=== PATIENT | female | born 1975 | race Caucasian/White ===

== ENCOUNTER 2021-12-11 17:27 | Emergency (ER) | payer OTHER, SELFPAY ==
[2021-12-11 17:30] VITALS: BP 143/101; PULSE 109; RESP 20; TEMP 36.9; O2SAT 98; BMI 33.8
[2021-12-11 17:42] VITALS: BP 121/85; PULSE 109; O2SAT 98
--- NOTE | 2021-12-11 17:45 | XR_ITS ---
PROCEDURE INFORMATION: Exam: XR Right Elbow Exam date and time: 12/11/2021 6:03 PM Age: 46 years old Clinical indication: Injury or trauma; Fall; Blunt trauma (contusions or hematomas); Patient HX: Patient fell onto right elbow. TECHNIQUE: Imaging protocol: Radiologic exam of the Right elbow. Views: 3 or more views. COMPARISON: No relevant prior studies available. FINDINGS: Bones/joints: There is no evidence of acute fracture.There is no evidence of malalignment or dislocation. Soft tissues: Soft tissue swelling of the elbow and forearm. IMPRESSION: There is no evidence of acute fracture.There is no evidence of malalignment or dislocation.
--- NOTE | 2021-12-11 17:52 | HMH.EDGENADL ---
ED Disposition Clinical Impression: Sting from hornet, wasp, or bee Qualifiers: Encounter type: initial encounter Injury intent: accidental or unintentional Qualified Code(s): T63.451A - Toxic effect of venom of hornets, accidental (unintentional), initial encounter Fall Qualifiers: Encounter type: initial encounter Qualified Code(s): W19.XXXA - Unspecified fall, initial encounter Disposition: Home, Self-Care Condition on Discharge: Good Instructions: DI for Cellulitis -- Adult, DI for Insect Bites and Stings Additional Instructions: Keflex and ibuprofen as prescribed. Ice 20 minutes 4-5 times a day to area of redness and swelling, elevate right arm. Return to the emergency department or follow-up with primary care doctor if not improving in 48 hours, or if worsening pain/redness/swelling or if you develop a fever greater than 100 degrees. Prescriptions: Albuterol Sulfate [Proventil-HFA 90mcg/puff Inh] 1 - 2 puffs IH Q6HP PRN #1 each PRN Reason: Wheezing Transmission Status: Pending to [facility] #[id number] Ibuprofen [Ibuprofen 800mg Tablet] 800 mg PO Q8HP PRN #15 tab PRN Reason: Moderate Pain Transmission Status: Received by [facility] #[id number] cephALEXin [cephALEXin 500mg capsule*] 500 mg PO Q6H #28 cap Transmission Status: Received by [facility] #[id number] Referrals: Provider,Referral, [Primary Care Provider] - - Critical Care Critical Care Time: No Attestation: On 12/11/21, the high probability of a clinically significant, sudden or life threatening deterioration of the following system(s) required my full and direct attention, intervention and personal management. The time I documented below is in addition to time spent performing reported procedures but includes the following listed in this critical care notation. Medical Decision Making - Evelio Inquiry Pt receiving controlled substance: No Vital Signs: 12/11/21 17:30 12/11/21 17:42 12/11/21 18:38 Temperature 98.5 F 98.5 F Temperature Source Oral Pulse Rate 109 H 100 H Pulse Rate [Left Radial] 109 H Respiratory Rate 20 20 Blood Pressure 121/85 121/85 Blood Pressure [Right Arm] 143/101 H Blood Pressure Mean [Right Arm] 115 Blood Pressure Source [Right Arm] Automatic Cuff Blood Pressure Position [Right Arm] Sitting 02 Sat by Pulse Oximetry 98 98 Oxygen Delivery Method Room Air Room Air Orders (Tests/Meds): ED MEDICATIONS Discontinued Medications Generic Name Dose Route Start Last Admin Trade Name Eden PRN Reason Stop Dose Admin Cefazolin Sodium 1 gm 12/11/21 18:19 12/11/21 18:32 Cefazolin 1gm Vial IM 12/11/21 18:20 1 gm ONCE ONE Administration Ketorolac Tromethamine 60 mg 12/11/21 18:19 12/11/21 18:33 Ketorolac 60mg/2ml Vial IM 12/11/21 18:20 60 mg ONCE ONE Administration ORDERS Category Date Time Status Elbow XR right minimum 3 views [XR elbow RT min 3V] Exams 12/11/21 17:45 Taken Stat - Radiology Data #1 Image(s): Elbow (Preliminary interpretation by me: No fracture, dislocation, foreign body, or effusion) Image Reviewed: Yes I reviewed the patient's radiology image Medical Decision Narrative: Discussed x-ray findings (negative). I recommend antibiotics and anti-inflammatories. On further discussion, she seems uncertain as to whether her symptoms are related to the fall. She also now states that this time states she has bad reactions to wasp stings very much like this. She is not aware of being stung but wonders whether she might have been, given the appearance of her arm. There is no papule or blister present to confirm a sting. She does not have itching. However, the appearance of her edema, induration, erythema, and heat would certainly be consistent with a hymenoptera envenomation, in fact I would favor that over cellulitis. Given the lack of a confirmatory history of a sting, however, I still recommend treating with antibi
[2021-12-11 18:38] VITALS: BP 121/85; PULSE 100; RESP 20; TEMP 36.9; O2SAT 98
== END 2021-12-11 18:44 | disposition home or self-care (01) ==
PROVIDERS: Emergency Provider Emergency Medicine
DX: T63.451A Toxic effect of venom of hornets, accidental (unintentional), initial encounter (principal); L03.115 Cellulitis of right lower limb; S50.311A Abrasion of right elbow, initial encounter; W18.30XA Fall on same level, unspecified, initial encounter
CPT/HCPCS: 73080; 96372; 99283

== ENCOUNTER → 2022-03-05 15:42 | Outpatient (CLI) | payer OTHER, SELFPAY ==
[2022-03-05 15:24] LABS: MANUAL DIFFERENTIAL MANUAL DIFFERENTIAL (MANUAL DIFF)
[2022-03-05 16:20] LABS: Basophils # 0.1 K/mm3 (0-0.2); Basophils % 0.8 % (0.1-2.0); Eosinophils # 0.1 K/mm3 (0.0-0.4); Eosinophils % 1.4 % (0.1-12.0); Hematocrit 46.2 % (37.0-47.0); Hemoglobin 14.5 g/dL (12.2-16.2); Lymphocytes # 2.1 K/mm3 (0.7-4.5); Lymphocytes % 29.5 % (10-50); Mean Corpuscular HGB Conc 31.3 g/dL (31.8-35.4); Mean Corpuscular Volume 92.6 fl (81-99); Mean Platelet Volume 9.4 fl (7.4-10.4); Monocytes # 0.5 K/mm3 (0.1-1.0); Monocytes % 6.8 % (1.7-9.3); Neutrophils # 4.4 K/mm3 (1.8-7.8); Neutrophils % 61.3 % (37.0-80.0); Platelet Count 372 K/mm3 (142-424); Red Blood Count 4.99 M/mm3 (4.20-5.40); Red Cell Distribution Width 14.6 % (11.5-17.5); White Blood Count 7.2 K/mm3 (4.8-10.8)
[2022-03-05 16:55] LABS: Free T4 (Free Thyroxine) 1.26 ng/dl (0.78-2.19)
[2022-03-05 17:09] LABS: Alanine Aminotransferase 19 U/L (12-78); Albumin/Globulin Ratio 1.4 (1.1-1.8); Alkaline Phosphatase 110 U/L (38-126); Anion Gap 15.5 mEq/L (5-15); Aspartate Amino Transferase 29 U/L (14-36); Blood Urea Nitrogen 4 mg/dl (7-17); Calcium 8.9 mg/dl (8.4-10.2); Carbon Dioxide 26 mmol/L (22.0-30.0); Chloride 102 mmol/L (98-107); Estimated Glomerular Filt Rate 108 ml/min (>60); GFR (African American) 130 ML/MIN (>60); Globulin 2.9 g/dL (1.3-3.2); Glucose 92 mg/dl (74-100); Potassium 4.5 mmoL/L (3.5-5.1); Sodium 139 mmol/L (136-145); Total Protein,Serum 6.9 g/dl (6.3-8.2)
[2022-03-05 17:10] LABS: Bilirubin,Total < 0.1 mg/dl (0.2-1.3)
[2022-03-05 17:41] LABS: Thyroid Stimulating Hormone 0.71 uIU/mL (0.465-4.68)
[2022-03-05 18:23] LABS: Eosinophils % 1 % (0-3); Lymphocytes % 44 % (10-50); Monocytes % 1 % (2-9); Neutrophils % 54 % (42-76); Total Cells Counted 100
[2022-03-05 18:24] LABS: Platelet Estimate Normal; RBC Morphology Normal
== END ==
PROVIDERS: PCP Family Medicine; Visit Provider Family Medicine
DX: Z01.89 Encounter for other specified special examinations (principal)
CPT/HCPCS: 80053; 84439; 84443; 85007; 85014; 85018; 85048; 85049

== ENCOUNTER → 2022-04-08 08:46 | Outpatient (CLI) | payer OTHER, SELFPAY ==
[2022-04-08 09:49] LABS: Basophils # 0.1 K/mm3 (0-0.2); Basophils % 1.1 % (0.1-2.0); Eosinophils # 0.1 K/mm3 (0.0-0.4); Eosinophils % 1.1 % (0.1-12.0); Hematocrit 47.5 % (37.0-47.0); Lymphocytes # 3.3 K/mm3 (0.7-4.5); Lymphocytes % 31.3 % (10-50); Mean Corpuscular HGB Conc 31.6 g/dL (31.8-35.4); Mean Corpuscular Volume 91.7 fl (81-99); Monocytes # 0.5 K/mm3 (0.1-1.0); Monocytes % 4.4 % (1.7-9.3); Neutrophils # 6.6 K/mm3 (1.8-7.8); Platelet Count 314 K/mm3 (142-424); Red Blood Count 5.17 M/mm3 (4.20-5.40); Red Cell Distribution Width 14.2 % (11.5-17.5); White Blood Count 10.6 K/mm3 (4.8-10.8)
[2022-04-08 10:26] LABS: Alanine Aminotransferase 16 U/L (12-78); Albumin Level 4.2 g/dl (3.5-5.0); Albumin/Globulin Ratio 1.4 (1.1-1.8); Alkaline Phosphatase 104 U/L (38-126); Anion Gap 12.2 mEq/L (5-15); Aspartate Amino Transferase 26 U/L (14-36); Bilirubin,Total 0.4 mg/dl (0.2-1.3); Blood Urea Nitrogen 9 mg/dl (7-17); Calcium 9.4 mg/dl (8.4-10.2); Carbon Dioxide 33 mmol/L (22.0-30.0); Chloride 98 mmol/L (98-107); Chol/HDL Ratio 4.7 (1-3.5); Cholesterol 197 mg/dl (140-200); Estimated Glomerular Filt Rate 90 ml/min (>60); GFR (African American) 109 ML/MIN (>60); Globulin 2.9 g/dL (1.3-3.2); Glucose 101 mg/dl (74-100); HDL Cholesterol 42 mg/dl (40-60); Potassium 4.2 mmoL/L (3.5-5.1); Sodium 139 mmol/L (136-145); Total Protein,Serum 7.1 g/dl (6.3-8.2); Triglycerides 275 mg/dl (30-150); VLDL Cholesterol 55 mg/dL (0-40)
== END ==
PROVIDERS: PCP Family Medicine; Visit Provider Nurse Practitioner Obstetrics & Gynecology
DX: Z01.419 Encounter for gynecological examination (general) (routine) without abnormal findings (principal)
CPT/HCPCS: 36415; 80053; 80061; 85025

== ENCOUNTER → 2022-04-09 09:49 | Outpatient (CLI) | payer OTHER, SELFPAY ==
--- NOTE | 2022-04-09 09:53 | MM_ITS ---
PROCEDURE INFORMATION: Exam: Bilateral Screening 3D Mammography Exam date and time: 04/09/2022 10:31 AM Age: 46 years old Clinical indication: Baseline. A maternal cousin had breast cancer in her 30s. TECHNIQUE: Imaging protocol: Bilateral Screening tomosynthesis and 2D mammography including computer-aided detection (CAD) when performed. COMPARISON: No relevant prior studies available. FINDINGS: MAMMOGRAPHY: Breast composition: There are scattered areas of fibroglandular density. Mass: None. Architectural distortion: None. Calcifications: No suspicious calcifications. Asymmetric density: None. Skin thickening: None. Axillary adenopathy: None. IMPRESSION: No mammographic evidence of malignancy. Annual screening is recommended unless otherwise clinically indicated. ASSESSMENT: BI-RADS Category 1: Negative
--- NOTE | 2022-04-09 09:53 | US_ITS ---
FINAL REPORT CLINICAL HISTORY: pelvic pain FINDINGS: Transvaginal sonographic images of the pelvis were obtained. The uterus is enlarged and measures 11.1 x 5.8 x 4.9 cm. The endometrium measures 14 mm which is at the upper limits of normal. The uterus is heterogeneous without a well-defined mass. The right ovary measures 2.4 cm in length and left ovary measures 3.0 cm in length. Normal blood flow seen to the ovaries. There is a small left ovarian cyst measuring 1.3 cm. There is no evidence of free fluid. IMPRESSION: Uterus is enlarged and heterogeneous without a well-defined mass. Small left ovarian cyst. Reviewed, Interpreted and Dictated by Garland Reilly III, MD Transcribed by Citlaly Panda Authenticated and [facility]
== END ==
PROVIDERS: PCP Family Medicine; Visit Provider Nurse Practitioner Obstetrics & Gynecology
DX: Z12.31 Encounter for screening mammogram for malignant neoplasm of breast (principal); R10.2 Pelvic and perineal pain
CPT/HCPCS: 76830; 77063; 77067

== ENCOUNTER 2022-05-01 11:02 | Emergency (ER) | payer BC, SELFPAY ==
[2022-05-01 12:55] VITALS: BP 142/96; PULSE 90; RESP 17; TEMP 36.8; O2SAT 97; BMI 30.7
[2022-05-01 13:29] LABS: UTC Strep Screen (Rapid) Negative (Negative)
--- NOTE | 2022-05-01 13:32 | EXP.UTC ---
Discharge Plan Disposition Patient Disposition: Home, Self-Care Condition: Good Prescriptions Prescriptions: New benzonatate 100 mg capsule 100 mg PO TID PRN (Reason: cough) Qty: 30 0RF No Action terconazole 0.8 % cream 1 appful vaginal HS 3 Days Qty: 20 0RF Referrals Follow up/Referrals: Salvador Barker MD [Primary Care Provider] - See instructions Activity Restrictions/Add. Instructions Additional Instructions/Restrictions: *Monitor Temp, Over the counter Motrin or Tylenol as directed/as needed Tylenol every 4 hours and Motrin every 6 hours (as long as your family doctor has told you that you can take it) for fever or pain. and straight to ER if unable to lower temp less than 101.0 after medication given *Warm salt water gargles may help to soothe the throat *Throat Lozenges? *Warm fluids like tea with honey may help to soothe the throat? *Sleep elevated *Humidifier/Vaporizer *Flonase 2 sprays in each nostril daily but be aware that it may take 2-3 days before you notice improvement *Bromfed may cause drowsiness. Know how it effects you (your child) before driving, caring for small child, or sending your child to school. Not other antihistamines/allergy medications while taking bromfed Your throat swab was sent for culture. Those results are typically sent to your primary care. Be sure to follow up in 2-3 days with your family doctor/primary care physician if no improvement so they can review those result and treat if necessary. If you don?t have a primary care doctor, I recommend you get one but in the mean time, you will have to return to a walk in clinic Follow up IMMEDIATELY for new or worsening symptoms or no Noticeable improvement over the next 48-72 hours. 911 for difficulty breathing or swallowing Clinical Impressions Clinical Impression: Viral upper respiratory tract infection with cough Instructions Patient Instructions: Cough, Sore Throat Discharge ED Provider: Skylar Ruffin [facility] HPI General Stated complaint: Sore throat, cough Mode of Arrival: Ambulatory Source of Information: Patient Limitations: No Limitations Time Seen by Provider: 05/01/22 13:32 Description of Symptoms (Recalled from Triage Doc. by RN): PATIENT C/O SORE THROAT AND COUGH SINCE YESTERDAY HEENT Symptoms (Recalled from RN notes): Yes Resp Symptoms (Recalled from RN notes): Yes Skin Symptoms (Recalled from RN notes): No MS Symptoms (Recalled from RN notes): No Functional Status (Recalled from RN notes): WNL History of Present Illness Provider Complaint: Patient state that her kids have been having sore throat and cough for several days States that since yesterday she has been having sore throat and cough States that she was worried that she may have strep throat so she came in to get checked Related Data Previous Rx's Medication Instructions Recorded terconazole 0.8 % vaginal cream 1 appful vaginal HS 3 days #20 03/19/22 grams benzonatate 100 mg capsule 100 mg PO TID PRN cough #30 caps 05/01/22 Allergies Allergy/AdvReac Type Severity Reaction Status Date / Time No Known Allergies Allergy Verified 05/01/22 13:08 Worker's Comp Is this a Worker's Comp case?: No PFSH PFSH Medical History (Updated 05/01/22 @ 13:39 by Skylar Ruffin APRN) Acute depression Anxiety Asthma Surgical History (Updated 05/01/22 @ 13:07 by Elizabeth Prince RN) H/O foot surgery H/O tubal ligation History of cholecystectomy History of tubal ligation Hx laparoscopic cholecystectomy Family History (Updated 03/05/22 @ 11:07 by JAIME Cordova) Mother Cancer Thyroid disorder Diabetes Coronary artery disease Social History (Updated 05/01/22 @ 13:07 by Elizabeth Prince RN) Smoking Status: Current some day smoker tobacco type: cigarettes alcohol intake: never substance use type: denies use current occupational status: unemployed Travel in the last 8 weeks: None RO
[2022-05-01 13:46] VITALS: BP 142/96; PULSE 90; RESP 17; TEMP 36.8; O2SAT 97
[2022-05-01 14:28] LABS: Adenovirus,PCR Not Detected (NotDetected); Bordetella Pertussis Not Detected (NotDetected); Chlamydophila Pneumoniae, PCR Not Detected (NotDetected); Coronavirus 19, PCR Not Detected (NotDetected); Coronavirus 229E Not Detected (NotDetected); Coronavirus NL63 Not Detected (NotDetected); Coronavirus OC43 Not Detected (NotDetected); Coronovirus HKU1,PCR Not Detected (NotDetected); Human Metapneumovirus Not Detected (NotDetected); Influenza A, PCR Not Detected (NotDetected); Influenza AH1, 2009 Not Detected (NotDetected); Influenza AH1, PCR Not Detected (NotDetected); Influenza AH3,PCR Not Detected (NotDetected); Influenza B, PCR Not Detected (NotDetected); Mycoplasma Pneumoniae, PCR Not Detected (NotDetected); Parainfluenza 1, PCR Not Detected (NotDetected); Parainfluenza 2, PCR Not Detected (NotDetected); Parainfluenza 3, PCR Not Detected (NotDetected); Parainfluenza 4, PCR Not Detected (NotDetected); Respiratory Syncytial Virus Not Detected (NotDetected); Rhinovirus/Enterovirus Not Detected (NotDetected)
== END 2022-05-01 14:00 | disposition home or self-care (01) ==
PROVIDERS: Emergency Provider Nurse Practitioner; PCP Family Medicine
DX: J02.9 Acute pharyngitis, unspecified (principal); R50.9 Fever, unspecified; R05.9 Cough, unspecified; R51.9 Headache, unspecified; J45.909 Unspecified asthma, uncomplicated; F32.A Depression, unspecified; F41.9 Anxiety disorder, unspecified; F17.210 Nicotine dependence, cigarettes, uncomplicated; Z79.899 Other long term (current) drug therapy; Z20.822 Contact with and (suspected) exposure to COVID-19; Z82.49 Family history of ischemic heart disease and other diseases of the circulatory system; Z80.9 Family history of malignant neoplasm, unspecified; Z83.49 Family history of other endocrine, nutritional and metabolic diseases; Z83.3 Family history of diabetes mellitus
CPT/HCPCS: 87581; 87632; 87798; 87880; 99213; C9803; G0463; U0003; U0005

== ENCOUNTER → 2022-08-15 10:05 | Outpatient (CLI) | payer BC, SELFPAY ==
--- NOTE | 2022-08-15 10:11 | XR_ITS ---
FINAL REPORT CLINICAL HISTORY: low back pain FINDINGS: LUMBAR SPINE Seven views of the lumbar spine including flexion and extension views were obtained. Spinal rods are present extending to the level of L1. There is no acute fracture. There is grade 1 anterior spondylolisthesis of L5 on S1. There is no change in alignment with flexion or extension. There is multilevel degenerative disc disease which is most pronounced at L3-4 and L5-S1. There is no soft tissue abnormality. IMPRESSION: 1. Grade 1 anterior spondylolisthesis of L5 on S1. 2. No change in alignment with flexion or extension. 3. Multilevel degenerative disc disease. Reviewed, Interpreted and Dictated by Laura Serrano MD Transcribed by Citlaly Panda Authenticated and . [facility]
== END ==
PROVIDERS: PCP Family Medicine; Visit Provider Family Medicine
DX: M54.50 Low back pain, unspecified (principal)
CPT/HCPCS: 72114

== ENCOUNTER → 2022-10-23 10:51 | Outpatient (CLI) | payer BC, SELFPAY ==
[2022-10-23 11:02] LABS: Microscopic, Urine URINE MICROSCOPIC (MICROSCOPIC)
[2022-10-23 11:32] LABS: Basophils % 0.4 % (0.1-2.0); Eosinophils # 0.1 K/mm3 (0.0-0.4); Eosinophils % 1.2 % (0.1-12.0); Hematocrit 45.5 % (37.0-47.0); Lymphocytes # 3.4 K/mm3 (0.7-4.5); Lymphocytes % 32.4 % (10-50); Mean Corpuscular Hemoglobin 29.5 pg (27.0-31.2); Mean Corpuscular Volume 89.5 fl (81-99); Mean Platelet Volume 7.6 fl (7.4-10.4); Monocytes # 0.6 K/mm3 (0.1-1.0); Monocytes % 5.8 % (1.7-9.3); Neutrophils # 6.4 K/mm3 (1.8-7.8); Neutrophils % 60.2 % (37.0-80.0); Platelet Count 316 K/mm3 (142-424); Red Blood Count 5.08 M/mm3 (4.20-5.40); Red Cell Distribution Width 13.5 % (11.5-17.5); White Blood Count 10.6 K/mm3 (4.8-10.8)
[2022-10-23 11:59] LABS: Alanine Aminotransferase 20 U/L (12-78); Albumin Level 4.1 g/dl (3.5-5.0); Albumin/Globulin Ratio 1.5 (1.1-1.8); Alkaline Phosphatase 76 U/L (38-126); Amylase 76 U/L (30-110); Anion Gap 15.9 mEq/L (5-15); Aspartate Amino Transferase 28 U/L (14-36); Bilirubin,Total 0.3 mg/dl (0.2-1.3); Blood Urea Nitrogen 7 mg/dl (7-17); Calcium 9.1 mg/dl (8.4-10.2); Carbon Dioxide 26 mmol/L (22.0-30.0); Chloride 100 mmol/L (98-107); Estimated Glomerular Filt Rate 108 ml/min (>60); GFR (African American) 130 ML/MIN (>60); Globulin 2.8 g/dL (1.3-3.2); Glucose 96 mg/dl (74-100); Lipase 136 U/L (23-300); Potassium 3.9 mmoL/L (3.5-5.1); Sodium 138 mmol/L (136-145); Total Protein,Serum 6.9 g/dl (6.3-8.2)
[2022-10-23 22:42] LABS: Appearance,Urine TURBID (Clear); Bilirubin,Urine Negative (Negative); Blood, Urine TRACE-I (Negative); Color,Urine YELLOW (Yellow); Glucose,Urine (UA) Negative (Negative); Ketones,Urine Negative (Negative); Leukocyte Esterase,Urine Negative (Negative); Nitrate,Urine Negative (Negative); PH,Urine 5.5 (5.0-8.5); Protein,Urine Negative (Negative); Specific Gravity, Urine >= 1.030 (1.005-1.030); Urobilinogen,Urine 0.2 EU/dl (0.2)
[2022-10-23 22:57] LABS: Amorphous Sediment,Urine 4+ /lpf; Bacteria,Urine 1+ /lpf
[2022-10-24 17:15] LABS: H. pylori Breath Test Negative (Negative)
== END ==
PROVIDERS: PCP Family Medicine; Visit Provider Family Medicine
DX: R42 Dizziness and giddiness (principal); R10.9 Unspecified abdominal pain; R11.0 Nausea; M54.50 Low back pain, unspecified
CPT/HCPCS: 36415; 80053; 81001; 82150; 83013; 83690; 85025; 87086

== ENCOUNTER → 2022-10-28 12:35 | Outpatient (POV) | payer BC, SELFPAY ==
--- NOTE | 2022-10-28 13:14 | EXP.PAIN.OV ---
HPI Data of Consult Patient: new to practice Consult date: 10/28/22 Requesting Physician: Yuko Ortez APRN Consult Narrative Reason for consult: Low back pain, bilateral leg pain History of present illness: Ms. Lopez is a 46 year old female who presents today as a new patient. She is a referral from Liv Ortez's office. Today she rates her pain an 8 out of 10. She states her pain is all in her low back and legs and has been going on for years and progressively worsened over time. She states when she was a child around the age of 12 she had Whitley rods placed. She does state that over the last 4 weeks it has increased. She denies any new trauma or injury. she does state typically her right leg symptoms are worse than the left and that she has been also experiencing right hip pain. She does describe her pain as a shooting, burning sensation with occasional hot stabbing sensations. She does state her pain is worse with increased activity and nothing seems to improve it. Patient has tried [id number] Tylenol and ibuprofen along with heat and ice and topicals with no additional relief. Patient has had physical therapy in the past and continues to do at home stretching and exercise techniques for longer than 6 weeks. She is currently managed with naproxen and cyclobenzaprine 10 mg at bedtime. Patient states this only takes the edge off of her pain symptoms. She is scheduled for a CT scan on Friday. Patient is not on any scheduled medications. Her Evelio is [id number]. Its been reviewed and appropriate. CC: Yuko Ortez APRN [facility] Disclaimer: The information contained in this section may have been updated after the patient was seen, as this information can be updated by other users. Medical History Acute depression Anxiety Asthma Surgical History History of cholecystectomy History of tubal ligation Hx laparoscopic cholecystectomy Previous back surgery Family History Mother Cancer Thyroid disorder Diabetes Coronary artery disease Social History Smoking Status: Current every day smoker second hand exposure: Yes alcohol intake: never substance use type: denies use current occupational status: unemployed Travel in the last 8 weeks: None household members: spouse marital status: Review of Systems Review of Systems Review of systems:: pertinent systems reviewed and negative unless documented below Review of systems (narrative): Review of Systems: General: No recent weight changes, no fever, no sleep disturbances Respiratory: No cough, no shortness of air, no recurring pulmonary infections Cardiovascular/peripheral vascular: No chest pain, no palpitations, no edema, no shortness of breath Gastrointestinal: No new onset incontinence, normal bowel movements reported Genitourinary: No new onset incontinence Musculoskeletal: Low back pain, bilateral leg pain Psychiatric: [Normal mood/affect] Neurological: [Denies weakness in extremities], [denies balance issues] Meds Home Medications and Allergies Home Medications Medication Instructions Recorded Confirmed Type albuterol sulfate 90 mcg/actuation 1 puff inhalation QID PRN 07/15/22 10/23/22 History aerosol inhaler (ProAir HFA) ondansetron HCl 4 mg tablet 4 mg PO Q6H PRN nausea and 10/23/22 10/23/22 Rx vomiting #30 tabs cyclobenzaprine 10 mg tablet 10 mg PO HS MUSCLES 10/28/22 10/28/22 History loratadine 10 mg tablet (Claritin) 10 mg PO DAILY ALLERGIES 10/28/22 10/28/22 History naproxen 500 mg tablet (Naprosyn) 500 mg PO BID Pain 10/28/22 10/28/22 History nicotine 21 mg/24 hr daily 1 patch transdermal DAILY SMOKING 10/28/22 10/28/22 History transdermal patch (Nicoderm CQ) CESSATION om
[2022-10-28 13:23] VITALS: BP 140/85; PULSE 85; RESP 18; O2SAT 97; BMI 33.6
== END ==
PROVIDERS: Visit Provider Nurse Practitioner Family
DX: M51.16 Intervertebral disc disorders with radiculopathy, lumbar region (principal); M54.50 Low back pain, unspecified; M43.17 Spondylolisthesis, lumbosacral region; M25.551 Pain in right hip
CPT/HCPCS: 99202; G0463

== ENCOUNTER → 2022-10-29 07:43 | Outpatient (CLI) | payer BC, SELFPAY ==
--- NOTE | 2022-10-29 07:50 | US_ITS ---
FINAL REPORT CLINICAL HISTORY: nausea, abdominal pain FINDINGS: ABDOMINAL ULTRASOUND COMPLETE: TECHNIQUE: Ultrasound images of the abdomen were obtained. FINDINGS: The liver is mildly fatty infiltrated. The gallbladder is surgically absent. The common duct is normal. The pancreas is partially obscured. The right kidney measures 10.8 cm in length and is normal in echogenicity without hydronephrosis. The left kidney measures 10.4 cm in length and is normal in echogenicity without hydronephrosis. The spleen is unremarkable. The aorta is normal in caliber. The vena cava is unremarkable. IMPRESSION: Mild fatty infiltration of the liver. Reviewed, Interpreted and Dictated by Garland Reilly III, MD Transcribed by Simone Silva Authenticated and [facility]
== END ==
PROVIDERS: PCP Family Medicine; Visit Provider Family Medicine
DX: R10.9 Unspecified abdominal pain (principal)
CPT/HCPCS: 76700

== ENCOUNTER → 2022-11-01 13:31 | Outpatient (CLI) | payer BC, SELFPAY ==
--- NOTE | 2022-11-01 13:31 | CT_ITS ---
FINAL REPORT TECHNIQUE: After the administration of IV contrast, axial images through the lumbar spine was performed by computed tomography. Sagittal and coronal reformatted images were obtained and reviewed. This study was performed with techniques to keep radiation doses as low as reasonably achievable (ALARA). Individualized dose reduction techniques using automated exposure control or adjustment of mA and/or kV according to the patient's size were employed. CLINICAL HISTORY: low back pain FINDINGS: No fracture is identified. There is levoscoliosis. There is right lateral subluxation of L2 on 3 measuring 7 mm. There is mild retrolisthesis of L1 on 2 and L2 on 3. Spinal rods are seen in the lower thoracic spine and upper lumbar spine. There is no evidence of abnormal contrast enhancement. L1-2: An annular bulge is present. Facet arthropathy and osteophytes are present. There is mild left neural foraminal narrowing. L2-3: An annular bulge is present. Facet arthropathy and osteophytes are present. There is mild bilateral neural foraminal narrowing. L3-4: An annular bulge is present. Facet arthropathy and osteophytes are present. There is a right paracentral disc protrusion which indents the thecal sac. There is moderate right neural foraminal narrowing. There is mild central canal stenosis with an AP diameter of the thecal sac of 8 mm. L4-5: An annular bulge and facet arthropathy are present. There is a left foraminal disc protrusion with mild right and moderate left neural foraminal narrowing. L5-S1: An annular bulge and facet arthropathy are present. There is moderate left neural foraminal narrowing. IMPRESSION: Right paracentral disc protrusion at L3-4 results in moderate right neural foraminal narrowing and mild central canal stenosis. Left foraminal disc protrusion at L4-5 with moderate left neural foraminal narrowing. Multilevel degenerative disc disease and spondylosis. Reviewed, Interpreted and Dictated by Garland Reilly III, MD Transcribed by Jie Jason Authenticated and . [facility]
== END ==
PROVIDERS: PCP Family Medicine; Visit Provider Family Medicine
DX: M54.50 Low back pain, unspecified (principal)
CPT/HCPCS: 72132; Q9967

== ENCOUNTER 2022-11-05 11:34 | Day surgery (SDC) | payer BC, SELFPAY ==
[2022-11-05 11:41] VITALS: BP 171/91; PULSE 103; RESP 18; TEMP 36.5; O2SAT 95; BMI 33.6
[2022-11-05 12:01] VITALS: BP 135/93; PULSE 93; RESP 18; O2SAT 95
--- NOTE | 2022-11-05 12:22 | EXP.PAIN.PRO ---
Procedure Date: 11/05/22 Time: 12:00 Anesthesiologist:: Carlos Manuel Wallace CRNA Complications:: None Pre-procedure Diagnosis:: Degenerative disc disease lumbar spine multilevels. Lumbar radiculopathy. Lumbar postlaminectomy syndrome. Post-procedure Diagnosis:: Same. Indications for Procedure:: Patient is a pleasant 46-year-old female comes our clinic today for a L5-S1 lumbar epidural steroid injection. Patient complains of low back pain as well as bilateral hip and leg radicular symptoms that she describes as constant, dull, sharp, stabbing at times. She rates her pain 8/10 today. Procedure Details:: Procedure: Lumbar epidural steroid injection under fluoroscopy Informed consent was obtained and the risks and benefits of the procedure were explained to the patient. The patient was taken to the procedure room and noninvasive monitors placed, including noninvasive blood pressure cuff and pulse oximeter. The back was viewed using C-arm Fluoroscopy and prepped using Chloraprep as a cleansing solution and the L5-S1 interspace was palpated. Skin and subcutaneous tissues were anesthetized using lidocaine 1.5% and a 25-gauge needle. After this, an 18-gauge Touhy epidural needle was placed into the L5-S1 interspace and advanced using fluoroscopic guidance and loss of resistance to air until the epidural space was encountered. After confirmation of needle placement in the epidural space, with dye, a solution containing normal saline, 3 mL and Depo-Medrol 80 mg were incrementally injected into the lumbar epidural space. The patient tolerated the procedure well with no complications. The patient was observed in the Pain Clinic and then discharged home neurologically intact. Plan and Disposition:: Patient was discharged without incident.
== END 2022-11-05 12:01 | disposition home or self-care (01) ==
PROVIDERS: PCP Family Medicine; Visit Provider Nurse Anesthetist, Certified Registered
DX: M51.16 Intervertebral disc disorders with radiculopathy, lumbar region (principal); M96.1 Postlaminectomy syndrome, not elsewhere classified
CPT/HCPCS: 62323; J1040; Q9966

== ENCOUNTER → 2022-11-25 14:06 | Outpatient (POV) | payer BC, SELFPAY ==
[2022-11-25 14:37] VITALS: BP 142/101; PULSE 108; RESP 18; O2SAT 98; BMI 33.6
--- NOTE | 2022-11-25 14:42 | EXP.PAIN.SOA ---
[facility] Pain Management SOAP Note Subjective:: Patient is a pleasant 46-year-old female who presents today for follow-up of lumbar epidural steroid injection L5-S1 on 11/05/2022. We are currently treating the patient for degenerative disc disease of the lumbar spine with lumbar radiculopathy symptoms, anterolisthesis of the lumbar spine, right hip pain, low back pain. Today she rates her pain a 6 out of 10. Patient states that she had approximately 50% improvement from this injection however only lasting 2 days. 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 Patient states she was able to do more around the house but she did still have to frequently take breaks. Patient does state that she is back to her baseline at today's visit. Patient states she has had to use her muscle relaxer cyclobenzaprine 10 mg to help take the edge off of her pain symptoms. Patient denies any new trauma or injury. She does describe her low back pain as a shooting, burning sensation that is worse with increased activity. It does interfere with her ability to perform activities of daily living such as cooking and cleaning. Patient has previously had back surgery in the past. She is not currently on any scheduled medications. Her Evelio is [id number]. Its been reviewed and appropriate. Review of Systems: General: No recent weight changes, no fever, no sleep disturbances Respiratory: No cough, no shortness of air, no recurring pulmonary infections Cardiovascular/peripheral vascular: No chest pain, no palpitations, no edema, no shortness of breath Gastrointestinal: No new onset incontinence, normal bowel movements reported Genitourinary: No new onset incontinence Musculoskeletal: Low back pain, bilateral leg pain Psychiatric: [Normal mood/affect] Neurological: [Denies weakness in extremities], [denies balance issues] Objective:: Physical Exam: General: Alert and oriented x3, no acute distress, pleasant and cooperative Lungs: Respirations even and unlabored, symmetrical chest expansion Eyes: PERRL Musculoskeletal: Flexion and extension of lumbar [spine] somewhat guarded secondary to pain, [antalgic gait noted] Neurological: Speech clear, no gross sensory deficit Assessment:: Degenerative disc disease of lumbar spine multilevels with lumbar radiculopathy symptoms, anterolisthesis of lumbar spine, right hip pain, low back pain Plan:: Patient did have significant improvement of upwards of 50% following her first lumbar epidural steroid injection however it was short term relief. Today she is experiencing severe pain in her low back with radiating symptoms into her lower extremities. Patient did have limited range of motion of her lumbar spine. I have discussed with the patient that she may benefit from repeat lumbar epidural steroid injection. Risk and benefits were discussed with the patient and she would like to proceed forward with this plan of care. Patient is not on any blood thinners. I will also send a prescription in of Flexeril 10 mg 3 times a day and provide a 1 month supply of this medication. Patient will be scheduled for an LESI L5-S1. Patient has been instructed to contact the clinic with any concerns before the next appointment. Dr. Galvez has reviewed this note and agrees with this plan of care. This note was dictated using voice recognition software and make contain errors or omissions. [facility] Disclaimer: The information contained in this section may have been updated after the patient was seen, as this information can be updated by other users. Medical History Acute depression Anxiety Asthma Surgical History History of cholecystectomy History of tubal ligation Hx laparoscopic cholecystectomy Previous back surgery Family History (Reviewed 10/23/22 @ 09:39 by Sancho Hoffman
== END | disposition home or self-care (01) ==
PROVIDERS: Visit Provider Nurse Practitioner Family
DX: M51.16 Intervertebral disc disorders with radiculopathy, lumbar region (principal); M25.551 Pain in right hip
CPT/HCPCS: 99212; G0463

== ENCOUNTER 2022-12-31 08:53 | Day surgery (SDC) | payer BC, SELFPAY ==
[2022-12-31 08:57] VITALS: BP 133/97; PULSE 105; RESP 18; TEMP 36.4; O2SAT 95; BMI 32.2
[2022-12-31 09:06] VITALS: BP 166/100; PULSE 104; RESP 18; O2SAT 95
[2022-12-31 09:16] VITALS: BP 150/109; PULSE 94; RESP 18; O2SAT 95
--- NOTE | 2022-12-31 09:22 | EXP.PAIN.PRO ---
Procedure Date: 12/31/22 Time: 09:05 Anesthesiologist:: Carlos Manuel Wallace CRNA Complications:: None Pre-procedure Diagnosis:: Degenerative disc disease lumbar spine multilevels. Lumbar radiculopathy. Lumbar postlaminectomy syndrome. Lumbar spondylosis. Post-procedure Diagnosis:: Same. Indications for Procedure:: Very pleasant 47-year-old female that comes our clinic today for repeat lumbar epidural steroid injection at the L5-S1 level. Patient reports 1 day relief after receiving her first injection at the same level. Patient has had multiple back surgeries. I discussed in detail with the patient regarding potential need for caudal approach for future epidural steroid injections. Procedure Details:: Procedure: Lumbar epidural steroid injection under fluoroscopy Informed consent was obtained and the risks and benefits of the procedure were explained to the patient. The patient was taken to the procedure room and noninvasive monitors placed, including noninvasive blood pressure cuff and pulse oximeter. The back was viewed using C-arm Fluoroscopy and prepped using Chloraprep as a cleansing solution and the L5-S1 interspace was palpated. Skin and subcutaneous tissues were anesthetized using lidocaine 1.5% and a 25-gauge needle. After this, an 18-gauge Touhy epidural needle was placed into the L5-S1 interspace and advanced using fluoroscopic guidance and loss of resistance to air until the epidural space was encountered. After confirmation of needle placement in the epidural space, with dye, a solution containing normal saline, 3 mL and Depo-Medrol 80 mg were incrementally injected into the lumbar epidural space. The patient tolerated the procedure well with no complications. The patient was observed in the Pain Clinic and then discharged home neurologically intact. Plan and Disposition:: Patient was discharged without incident.
--- NOTE | 2022-12-31 09:45 | PC.NURSE ---
patient escorted to primary care for evaluation of blood pressure
== END 2022-12-31 09:45 | disposition home or self-care (01) ==
PROVIDERS: PCP Family Medicine; Visit Provider Nurse Anesthetist, Certified Registered
DX: M51.16 Intervertebral disc disorders with radiculopathy, lumbar region (principal); M96.1 Postlaminectomy syndrome, not elsewhere classified; M47.26 Other spondylosis with radiculopathy, lumbar region
CPT/HCPCS: 62323; J1040

== ENCOUNTER 2023-01-02 18:59 | Emergency (ER) | payer OTHER, BC, SELFPAY ==
[2023-01-02 19:03] VITALS: BP 161/99; PULSE 115; RESP 18; TEMP 36.8; O2SAT 95; BMI 34.0
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
[2023-01-02 20:09] VITALS: BP 131/92; PULSE 96; RESP 16; TEMP 36.7; O2SAT 96
== END 2023-01-02 20:12 | disposition home or self-care (01) ==
PROVIDERS: Emergency Provider Emergency Medicine; PCP Nurse Practitioner Family
DX: S16.1XXA Strain of muscle, fascia and tendon at neck level, initial encounter (principal); M54.50 Low back pain, unspecified; J45.909 Unspecified asthma, uncomplicated; F41.9 Anxiety disorder, unspecified; F17.200 Nicotine dependence, unspecified, uncomplicated; V49.40XA Driver injured in collision with unspecified motor vehicles in traffic accident, initial encounter
CPT/HCPCS: 99283

== ENCOUNTER → 2023-01-06 16:46 | Outpatient (CLI) | payer OTHER, BC, SELFPAY ==
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
== END ==
PROVIDERS: PCP Nurse Practitioner Family; Visit Provider Nurse Practitioner Family
DX: M54.2 Cervicalgia (principal); M54.50 Low back pain, unspecified
CPT/HCPCS: 72050; 72110

== ENCOUNTER → 2023-01-13 09:20 | Outpatient (POV) | payer OTHER, BC, SELFPAY ==
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
[2023-01-13 10:10] VITALS: BP 145/106; PULSE 99; RESP 18; O2SAT 96; BMI 335820.1
== END ==
PROVIDERS: Visit Provider Nurse Practitioner Family
DX: M51.16 Intervertebral disc disorders with radiculopathy, lumbar region (principal); M43.16 Spondylolisthesis, lumbar region; M25.551 Pain in right hip; M50.10 Cervical disc disorder with radiculopathy, unspecified cervical region
CPT/HCPCS: 99212; G0463

== ENCOUNTER 2023-01-24 07:57 | Day surgery (SDC) | payer BC, SELFPAY ==
[2023-01-24 08:25] VITALS: BP 138/89; PULSE 82; RESP 18; TEMP 36.6; O2SAT 95; BMI 34.0
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
[2023-01-24 08:40] VITALS: BP 155/97; PULSE 78; RESP 18; O2SAT 95
[2023-01-24 08:45] VITALS: BP 156/96; PULSE 76; RESP 18; O2SAT 95
[2023-01-24 08:46] VITALS: BP 156/96; PULSE 76; RESP 18; O2SAT 95
== END 2023-01-24 08:40 | disposition home or self-care (01) ==
PROVIDERS: PCP Nurse Practitioner Family; Visit Provider Nurse Anesthetist, Certified Registered
DX: M51.16 Intervertebral disc disorders with radiculopathy, lumbar region (principal); M96.1 Postlaminectomy syndrome, not elsewhere classified
CPT/HCPCS: 62323; J1040

== ENCOUNTER → 2023-02-10 08:47 | Outpatient (POV) | payer BC, SELFPAY ==
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
[2023-02-10 09:20] VITALS: BP 126/89; PULSE 85; RESP 18; O2SAT 98; BMI 34.0
== END ==
PROVIDERS: Visit Provider Nurse Practitioner Family
DX: M51.16 Intervertebral disc disorders with radiculopathy, lumbar region (principal); M25.551 Pain in right hip
CPT/HCPCS: 99212; G0463

== ENCOUNTER → 2023-02-28 13:15 | Outpatient (CLI) | payer OTHER, BC, SELFPAY ==
--- NOTE | 2023-02-28 13:19 | US_ITS ---
FINAL REPORT CLINICAL HISTORY: LLE pain, edema, rash, and decreased pulses, current smoker, HTN. COMPARISON: None FINDINGS: ANKLE-BRACHIAL PRESSURE INDICES Pressure indices are as follows: RIGHT LOWER EXTREMITY: Ankle-brachial pressure index: 1.2 Comments: Normal LEFT LOWER EXTREMITY: Ankle-brachial pressure index: 1.4 Comments: Normal IMPRESSION: No evidence of significant obstructive peripheral vascular disease of the lower extremities Reviewed, Interpreted and Dictated by Garland Reilly III, MD Transcribed by Mai Miller Authenticated and [facility]
== END ==
PROVIDERS: PCP Nurse Practitioner Family; Visit Provider Nurse Practitioner Family
DX: R60.0 Localized edema (principal); M79.605 Pain in left leg; R09.89 Other specified symptoms and signs involving the circulatory and respiratory systems; R21 Rash and other nonspecific skin eruption
CPT/HCPCS: 93923

== ENCOUNTER → 2023-03-10 09:00 | Outpatient (POV) | payer OTHER, BC, SELFPAY ==
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
[2023-03-10 12:54] VITALS: BP 123/95; PULSE 82; RESP 18; O2SAT 94; BMI 33.3
== END | disposition home or self-care (01) ==
PROVIDERS: PCP Nurse Practitioner Family; Visit Provider Nurse Practitioner Family
DX: M51.16 Intervertebral disc disorders with radiculopathy, lumbar region (principal); M25.551 Pain in right hip
CPT/HCPCS: 99212; G0463

== ENCOUNTER 2023-03-25 08:02 | Day surgery (SDC) | payer OTHER, BC, SELFPAY ==
[2023-03-25 08:11] VITALS: BP 144/98; PULSE 80; RESP 18; TEMP 36.2; O2SAT 94; BMI 34.0
[2023-03-25] MEDS: methylPREDNISolone ACETATE 80MG/ML VIAL 80 MG (08:40)
[2023-03-25] MEDS: LIDOCAINE 1% 5ML PF VIAL 5 ML (08:40)
[2023-03-25] MEDS: IOPAMIDOL-200 (41%);10ML VIAL 10 ML IV (08:46)
[2023-03-25 08:50] VITALS: BP 139/94; PULSE 73; RESP 18; O2SAT 99
--- NOTE | 2023-03-25 08:58 | EXP.PAIN.PRO ---
Procedure Date: 03/25/23 Time: 08:40 Anesthesiologist:: Carlos Manuel Wallace CRNA Complications:: None Pre-procedure Diagnosis:: Degenerative disc lumbar spine multilevels. Lumbar radiculopathy. Lumbar postlaminectomy syndrome. Chronic pain syndrome. Post-procedure Diagnosis:: Same. Indications for Procedure:: Patient is a very pleasant 47-year-old female comes our clinic today for her initial caudal epidural steroid injection. Patient has tried and failed other lumbar injections. She complains of constant low back pain that is radiating bilateral hip and legs. Right greater than left. She rates her pain today 7/10. Procedure Details:: Details of the procedure explained to the patient. The patient taken the procedure room placed in the prone position. The area over the sacrum was cleaned using chlorhexidine as a cleansing solution. Using fluoroscopy in a lateral position a marker was placed over the sacral opening. The skin and subcutaneous tissue was anesthetized using 1% lidocaine and 25-gauge needle. At this time using laparoscopy a 3-1/2 inch 22-gauge spinal needle was used to access the sacral caudal space. Needle position was confirmed using contrast dye and a cephalad spread. At this time a solution of 8 cc containing 1 cc of 1% lidocaine 2 cc of Depo-Medrol and 5 cc of normal saline was injected incrementally. Patient tolerated procedure without difficulty. There are no complications. Plan and Disposition:: Patient was discharged without incident. Patient was reevaluated 10 minutes post procedure. She reports 100% pain relief in terms of her low back pain as well as bilateral hip and leg radicular symptoms. Patient no longer having difficulty transitioning from sitting to standing. Patient standing upright with no pain. Patient reports she is never able to stand upright due to intense low back pain. Patient will follow-up with us in the clinic for further evaluation.
== END 2023-03-25 08:50 | disposition home or self-care (01) ==
PROVIDERS: PCP Nurse Practitioner Family; Visit Provider Nurse Anesthetist, Certified Registered
DX: M51.16 Intervertebral disc disorders with radiculopathy, lumbar region (principal); M96.1 Postlaminectomy syndrome, not elsewhere classified; G89.4 Chronic pain syndrome
CPT/HCPCS: 62323; J1040; Q9966

== ENCOUNTER → 2023-04-16 08:40 | Outpatient (POV) | payer OTHER, BC, SELFPAY ==
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
[2023-04-16 09:00] VITALS: BP 128/97; PULSE 78; RESP 18; O2SAT 97; BMI 34.0
== END | disposition home or self-care (01) ==
PROVIDERS: PCP Nurse Practitioner Family; Visit Provider Nurse Practitioner Family
DX: M51.16 Intervertebral disc disorders with radiculopathy, lumbar region (principal); M25.551 Pain in right hip; M79.18 Myalgia, other site
CPT/HCPCS: 99212; G0463

== ENCOUNTER 2023-05-06 08:52 | Day surgery (SDC) | payer BC, SELFPAY ==
[2023-05-06 09:11] VITALS: BP 131/85; PULSE 99; RESP 16; TEMP 36.6; O2SAT 97; BMI 34.0
[2023-05-06 09:20] VITALS: BP 132/90; PULSE 100; O2SAT 94
[2023-05-06 09:28] VITALS: BP 132/90; PULSE 95; O2SAT 94
--- NOTE | 2023-05-06 09:30 | EXP.PAIN.PRO ---
Procedure Date: 05/06/23 Time: 09:00 Anesthesiologist:: Carlos Manuel Wallace CRNA Complications:: None Pre-procedure Diagnosis:: Degenerative disc lumbar spine multilevels. Lumbar radiculopathy. Lumbar postlaminectomy syndrome. Lumbar arthropathy. Lumbar spondylosis. Post-procedure Diagnosis:: Same. Indications for Procedure:: Patient is a very pleasant 47-year-old female comes our clinic today for repeat caudal epidural steroid injection. Patient had significant improvement terms of her overall low back hip and leg radicular symptoms with previous injection. She complains of low back pain as well as bilateral hip and leg radicular symptoms. She rates her pain 7/10. Procedure Details:: Procedure: Caudal epidural steroid injection under fluoroscopy Informed consent was obtained and the risks and benefits of the procedure were explained to the patient. The patient was taken to the procedure room and noninvasive monitors placed, including noninvasive blood pressure cuff and pulse oximeter. The back was viewed using C-arm Fluoroscopy and prepped using Chloraprep as a cleansing solution and the sacral area was palpated. Skin and subcutaneous tissues were anesthetized using lidocaine 1.5% and a 25-gauge needle. After this, an 22-gauge spinal needle was placed into the caudal space and advanced using fluoroscopic guidance. After confirmation of needle placement in the caudal space, with dye, a solution containing normal saline, 6 mL and Depo-Medrol 80 mg were incrementally injected into the lumbar space. The patient tolerated the procedure well with no complications. The patient was observed in the Pain Clinic and then discharged home neurologically intact. Plan and Disposition:: Patient was discharged without incident.
[2023-05-06 09:32] VITALS: BP 124/86; PULSE 91; RESP 18; O2SAT 99
== END 2023-05-06 09:32 | disposition home or self-care (01) ==
PROVIDERS: PCP Nurse Practitioner Family; Visit Provider Nurse Anesthetist, Certified Registered
DX: M51.16 Intervertebral disc disorders with radiculopathy, lumbar region (principal); M96.1 Postlaminectomy syndrome, not elsewhere classified; M47.26 Other spondylosis with radiculopathy, lumbar region
CPT/HCPCS: 62323; J1040

== ENCOUNTER → 2023-05-21 14:23 | Outpatient (POV) | payer BC, SELFPAY ==
[2023-05-21 14:48] VITALS: BP 126/88; PULSE 96; RESP 18; O2SAT 92; BMI 34.0
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
== END | disposition home or self-care (01) ==
PROVIDERS: PCP Nurse Practitioner Family; Visit Provider Nurse Practitioner Family
DX: M51.16 Intervertebral disc disorders with radiculopathy, lumbar region (principal); M25.551 Pain in right hip; M79.18 Myalgia, other site
CPT/HCPCS: 99212; G0463

== ENCOUNTER → 2023-05-26 11:42 | Outpatient (CLI) | payer BC, SELFPAY ==
--- NOTE | 2023-05-26 11:47 | XR_ITS ---
FINAL REPORT TECHNIQUE: Chest PA & Lateral CLINICAL HISTORY: dyspnea COMPARISON: None FINDINGS: 2 views of the chest were performed. Posterior hardware is noted in the thoracic spine in this patient with moderate thoracic scoliosis. The heart size is normal. The mediastinum is within normal limits. There is no acute cardiopulmonary process. There are no pleural effusions. There is no pneumothorax. The bony thorax appears intact. IMPRESSION: No acute cardiopulmonary process. Status post fusion of the thoracic spine for a moderate thoracic scoliosis. Reviewed, Interpreted and Dictated by Mil Nguyễn MD Transcribed by Sona Shaffer Authenticated and [facility]
== END ==
PROVIDERS: PCP Nurse Practitioner Family; Visit Provider Nurse Practitioner Family
DX: R06.00 Dyspnea, unspecified (principal)
CPT/HCPCS: 71046

== ENCOUNTER → 2023-05-26 12:34 | Outpatient (CLI) | payer BC, SELFPAY ==
[2023-05-26 12:11] LABS: Adenovirus,PCR Not Detected (NotDetected); Coronavirus 19, PCR Not Detected (NotDetected); Coronavirus 229E Not Detected (NotDetected); Coronavirus NL63 Not Detected (NotDetected); Coronavirus OC43 Not Detected (NotDetected); Coronovirus HKU1,PCR Not Detected (NotDetected); Human Metapneumovirus Not Detected (NotDetected); Influenza A, PCR Not Detected (NotDetected); Influenza AH1, 2009 Not Detected (NotDetected); Influenza AH1, PCR Not Detected (NotDetected); Influenza AH3,PCR Not Detected (NotDetected); Influenza B, PCR Not Detected (NotDetected); Parainfluenza 1, PCR Not Detected (NotDetected); Parainfluenza 2, PCR Not Detected (NotDetected); Parainfluenza 3, PCR Not Detected (NotDetected); Parainfluenza 4, PCR Not Detected (NotDetected); Respiratory Syncytial Virus Not Detected (NotDetected); Rhinovirus/Enterovirus Not Detected (NotDetected)
== END ==
PROVIDERS: PCP Nurse Practitioner Family; Visit Provider Nurse Practitioner Family
DX: R06.00 Dyspnea, unspecified (principal)
CPT/HCPCS: 87632; 87635

== ENCOUNTER → 2023-06-18 14:25 | Outpatient (POV) | payer BC, SELFPAY ==
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
[2023-06-18 15:36] VITALS: BP 131/94; PULSE 101; RESP 18; O2SAT 92; BMI 34.0
== END | disposition home or self-care (01) ==
PROVIDERS: PCP Nurse Practitioner Family; Visit Provider Nurse Practitioner Family
DX: M51.16 Intervertebral disc disorders with radiculopathy, lumbar region (principal); M25.551 Pain in right hip; M79.18 Myalgia, other site
CPT/HCPCS: 99212; G0463

== ENCOUNTER 2023-07-29 08:01 | Day surgery (SDC) | payer BC, SELFPAY ==
[2023-07-29 08:28] VITALS: BP 122/84; PULSE 91; RESP 18; O2SAT 98; BMI 34.0
[2023-07-29] MEDS: LIDOCAINE 1% 5ML PF VIAL 5 ML (09:06)
[2023-07-29 09:07] VITALS: BP 114/92; PULSE 74; RESP 18; O2SAT 95
[2023-07-29] MEDS: methylPREDNISolone ACETATE 80MG/ML VIAL 80 MG (09:07)
[2023-07-29 09:08] VITALS: BP 114/92; PULSE 74; RESP 18; O2SAT 95
[2023-07-29 09:15] VITALS: BP 114/89; PULSE 82; RESP 18; O2SAT 98
--- NOTE | 2023-07-29 09:15 | EXP.PAIN.PRO ---
Procedure Date: 07/29/23 Time: 09:00 Anesthesiologist:: Carlos Manuel Wallace CRNA Complications:: None Pre-procedure Diagnosis:: Degenerative disc lumbar spine multilevels. Lumbar radiculopathy. Lumbar postlaminectomy syndrome. Lumbar spondylosis. Post-procedure Diagnosis:: Same. Indications for Procedure:: Patient is a very pleasant 47-year-old female comes our clinic today for a caudal epidural steroid injection. Patient had a previous injection in April at the caudal level and reports 3 to 4 months of 70+ percent improvement terms of her overall low lumbar back symptoms with bilateral hip and leg radicular symptoms. Patient states she was able to do things she had not done in years. Patient inquired with me regarding the intrathecal pain pump. We talked briefly about it. She voiced interest in pursuing a little further the idea of intrathecal pain pump. Procedure Details:: Details of the procedure explained to the patient. The patient taken to procedure room placed in the prone position on the fluoroscopy table. The area of the caudal space was cleansed using chlorhexidine's cleansing solution. Using laparoscopy in the lateral position a 25-gauge 3 and half inch spinal needle was used to access the caudal space. Needle position was confirmed using 1 cc of contrast dye and a cephalad spread through the sacrum. At this time a 6 cc solution containing 3 cc of normal saline 1 cc of 1% lidocaine and 80 mg of Depo-Medrol was injected. This was done after negative aspiration. Patient tolerated procedure without difficulty. There are no complications. Plan and Disposition:: Patient was discharged without incident.
[2023-07-29] MEDS: IOPAMIDOL-200 (41%);10ML VIAL 10 ML IV (09:26)
== END 2023-07-29 09:15 | disposition home or self-care (01) ==
PROVIDERS: PCP Nurse Practitioner Family; Visit Provider Nurse Anesthetist, Certified Registered
DX: M51.16 Intervertebral disc disorders with radiculopathy, lumbar region (principal); M96.1 Postlaminectomy syndrome, not elsewhere classified; M47.26 Other spondylosis with radiculopathy, lumbar region
CPT/HCPCS: 62323; J1040; Q9966

== ENCOUNTER 2023-08-13 10:08 | Outpatient (POV) | payer BC, SELFPAY ==
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
[2023-08-13 12:35] VITALS: BP 128/95; PULSE 113; RESP 20; O2SAT 95; BMI 34.0
== END 2023-08-13 23:59 | disposition home or self-care (01) ==
PROVIDERS: PCP Nurse Practitioner Family; Visit Provider Nurse Practitioner Family
DX: M51.16 Intervertebral disc disorders with radiculopathy, lumbar region (principal); M25.551 Pain in right hip; M79.18 Myalgia, other site
CPT/HCPCS: 99212; G0463

== ENCOUNTER 2023-09-10 09:15 | Outpatient (POV) | payer BC, SELFPAY ==
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
[2023-09-10 13:45] VITALS: BP 130/91; PULSE 90; RESP 18; O2SAT 94; BMI 34.0
== END 2023-09-10 23:59 ==
LOC: SC.PAIN 09:16
PROVIDERS: PCP Nurse Practitioner Family; Visit Provider Nurse Practitioner Family
DX: M51.16 Intervertebral disc disorders with radiculopathy, lumbar region (principal); M25.551 Pain in right hip; M54.50 Low back pain, unspecified; M79.18 Myalgia, other site
CPT/HCPCS: 99212; G0463

== ENCOUNTER 2023-10-01 12:52 | Outpatient (CLI) | payer BC, SELFPAY ==
--- NOTE | 2023-10-01 12:53 | CA_ITS ---
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 9.10 mmHg Mitral Valve MV A Velocity 77.0 (40-130 cm/s) E/A Ratio 0.64 Pulmonary Valve PV Peak Velocity 107.0 (50-150 cm/s) Tricuspid Valve TR P. Velocity 186.00 cm/s RAP Estimate 10.00 mmHg RVSP 23.90 mmHg Left Ventricle The left ventricle is normal size. The left ventricular systolic function is normal. The left ventricular ejection fraction is within the normal range. There is normal left ventricular wall thickness. There is normal LV segmental wall motion. The left ventricular diastolic function is normal. LVEF is 60%. Right Ventricle The right ventricle is normal size. The right ventricular systolic function is normal. Atria The left atrium size is normal. The right atrium size is normal. There is no Doppler evidence of interatrial shunt. Aortic Valve The aortic valve opens well. There is no aortic valvular stenosis. Trace aortic regurgitation. Mitral Valve The mitral valve is normal in structure. No evidence of mitral valve stenosis. Trace mitral regurgitation. Tricuspid Valve The tricuspid valve leaflets are thin and pliable. Trace tricuspid regurgitation. There is insufficient TR jet to estimate RVSP. Pulmonic Valve The pulmonary valve is normal in structure. Trace pulmonic regurgitation. Great Vessels The aortic root is normal in size. The ascending aorta is normal in size. IVC is normal in size and collapses >50% with inspiration. Pericardium There is no pericardial effusion. Other Information Study Quality: Fair Conclusion Normal biventricular systolic function. No significant valvular stenosis or regurgitation. Electronically signed by : Kadie Dumont MD 10/05/2023 21:50:15
== END 2023-10-01 23:59 ==
LOC: RT 12:53
PROVIDERS: PCP Nurse Practitioner Family; Visit Provider Nurse Practitioner Family
DX: R60.0 Localized edema (principal)
CPT/HCPCS: 93306

== ENCOUNTER 2023-10-20 10:06 | Outpatient (POV) | payer BC, SELFPAY ==
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
[2023-10-20 10:21] VITALS: BP 132/80; PULSE 82; TEMP 36.6; O2SAT 99; BMI 34.5
== END 2023-10-20 23:59 | disposition home or self-care (01) ==
LOC: SC.PAIN 10:06
PROVIDERS: PCP Nurse Practitioner Family; Visit Provider Nurse Practitioner Family
DX: M51.16 Intervertebral disc disorders with radiculopathy, lumbar region (principal); M25.551 Pain in right hip; M79.18 Myalgia, other site
CPT/HCPCS: 99212; G0463

== ENCOUNTER 2023-11-18 11:17 | Outpatient (CLI) | payer BC, SELFPAY ==
[2023-11-18 11:08] LABS: Microscopic, Urine URINE MICROSCOPIC (MICROSCOPIC)
[2023-11-18 11:49] LABS: Basophils # 0.1 K/mm3 (0-0.2); Basophils % 0.9 % (0.1-2.0); Eosinophils # 0.1 K/mm3 (0.0-0.4); Hematocrit 49.1 % (37.0-47.0); Hemoglobin 15.6 g/dL (12.2-16.2); Lymphocytes # 3.1 K/mm3 (0.7-4.5); Lymphocytes % 30.6 % (10-50); Mean Corpuscular HGB Conc 31.8 g/dL (31.8-35.4); Mean Corpuscular Hemoglobin 30.1 pg (27.0-31.2); Mean Corpuscular Volume 94.5 fl (81-99); Mean Platelet Volume 9.5 fl (7.4-10.4); Monocytes # 0.7 K/mm3 (0.1-1.0); Monocytes % 6.5 % (1.7-9.3); Neutrophils # 6.2 K/mm3 (1.8-7.8); Platelet Count 269 K/mm3 (142-424); Red Cell Distribution Width 14.4 % (11.5-17.5); White Blood Count 10.2 K/mm3 (4.8-10.8)
[2023-11-18 12:06] LABS: Chloride 102 mmol/L (98-107); Sodium 138 mmol/L (136-145)
[2023-11-18 12:07] LABS: Potassium 4.4 mmoL/L (3.5-5.1)
[2023-11-18 12:09] LABS: Alanine Aminotransferase 16 U/L (12-78); Albumin Level 4.3 g/dl (3.5-5.0); Albumin/Globulin Ratio 1.3 (1.1-1.8); Alkaline Phosphatase 80 U/L (38-126); Anion Gap 10.4 mEq/L (5-15); Aspartate Amino Transferase 25 U/L (14-36); Bilirubin,Total 0.4 mg/dl (0.2-1.3); Blood Urea Nitrogen 10 mg/dl (7-17); Carbon Dioxide 30 mmol/L (22.0-30.0); Cholesterol 230 mg/dl (140-200); Estimated Glomerular Filt Rate 90 ml/min (>60); GFR (African American) 109 ML/MIN (>60); Globulin 3.3 g/dL (1.3-3.2); Glucose 86 mg/dl (74-100); Iron 118 ug/dL (37-170); Total Protein,Serum 7.6 g/dl (6.3-8.2); Triglycerides 189 mg/dl (30-150); VLDL Cholesterol 38 mg/dL (0-40)
[2023-11-18 12:10] LABS: Chol/HDL Ratio 3.7 (1-3.5); HDL Cholesterol 62 mg/dl (40-60)
[2023-11-18 12:15] LABS: Appearance,Urine CLEAR (Clear); Bilirubin,Urine Negative (Negative); Blood, Urine Negative (Negative); Color,Urine YELLOW (Yellow); Glucose,Urine (UA) Negative (Negative); Ketones,Urine Negative (Negative); Leukocyte Esterase,Urine Negative (Negative); Nitrate,Urine Negative (Negative); Protein,Urine Negative (Negative); Urobilinogen,Urine 0.2 EU/dl (0.2)
[2023-11-18 12:20] LABS: Total Iron Binding Capacity 423 ug/dL (265-497)
[2023-11-18 12:21] LABS: Direct LDL Cholesterol 139.96 mg/dL (100-129)
[2023-11-18 12:26] LABS: Free T4 (Free Thyroxine) 1.17 ng/dl (0.78-2.19)
[2023-11-18 12:27] LABS: 25-OH Vitamin D, Total 24.4 ng/mL (30-100)
[2023-11-18 12:40] LABS: Bacteria,Urine 1+ /lpf; WBC,Urine Occasional #/hpf (0-3)
[2023-11-18 12:41] LABS: Thyroid Stimulating Hormone 2.54 uIU/mL (0.465-4.68)
[2023-11-18 13:24] LABS: Hemoglobin A1C 5.8 % (4.0-6.0)
[2023-11-18 14:18] LABS: Vitamin B12 197 pg/mL (239-931)
[2023-11-19 09:33] LABS: HBsAg Screen Negative (Negative); HCV Ab Non Reactive (Non Reactive); Hep A Ab, IGM Negative (Negative); Hep B Core Ab, IgM Negative (Negative)
[2023-11-19 10:13] LABS: HIV Screen 4th Generation wRfx Non Reactive (Non Reactive)
[2023-11-19 13:11] LABS: Rapid Plasma Reagin Ab Titer Non Reactive titer (NonRea<1:1)
[2023-11-20 07:19] LABS: Neisseria gonorrhoeae, NAA Negative (Negative)
== END 2023-11-18 23:59 | disposition home or self-care (01) ==
LOC: LAB.DROPOF 11:17
PROVIDERS: PCP Nurse Practitioner Family; Visit Provider Nurse Practitioner Family
DX: R53.83 Other fatigue (principal); I10 Essential (primary) hypertension; F17.200 Nicotine dependence, unspecified, uncomplicated; Z13.1 Encounter for screening for diabetes mellitus; Z11.3 Encounter for screening for infections with a predominantly sexual mode of transmission; Z13.220 Encounter for screening for lipoid disorders; E55.9 Vitamin D deficiency, unspecified; Z68.36 Body mass index [BMI] 36.0-36.9, adult
CPT/HCPCS: 80050; 80053; 80061; 80074; 81001; 82306; 82607; 82728; 83036; 83540; 83550; 84156; 84439; 84443; 85025; 86593; 86703; 87086; 87491; 87591; G0432

== ENCOUNTER 2023-11-27 08:32 | Outpatient (CLI) | payer BC, SELFPAY ==
--- NOTE | 2023-11-27 08:38 | MM_ITS ---
PROCEDURE INFORMATION: Exam: MG Bilateral Screening 3D Mammography Exam date and time: 11/27/2023 8:25 AM Age: 47 years old Clinical indication: Screening examination TECHNIQUE: Imaging protocol: Bilateral Screening tomosynthesis and 2D mammography including computer-aided detection (CAD) when performed. COMPARISON: MG MM DIG SCREENING MAMM BI W/CAD 04/09/2022 10:31 AM FINDINGS: MAMMOGRAPHY: Breast composition: The breasts are heterogeneously dense, which may obscure small masses. Mass: None. Architectural distortion: None. Calcifications: No suspicious calcifications. Asymmetric density: None. Skin thickening: None. Axillary adenopathy: None. IMPRESSION: No mammographic evidence of malignancy. Annual screening is recommended unless otherwise clinically indicated. ASSESSMENT: BI-RADS Category 1: Negative
--- NOTE | 2023-11-27 08:56 | US_ITS ---
FINAL REPORT CLINICAL HISTORY: LLE edema from mid calf to toes, smoker, HTN, Claudication COMPARISON: None FINDINGS: ANKLE-BRACHIAL PRESSURE INDICES Pressure indices are as follows: RIGHT LOWER EXTREMITY: Ankle-brachial pressure index: 1.0 Comments: Normal LEFT LOWER EXTREMITY: Ankle-brachial pressure index: 1.05 Comments: Normal CONCLUSION: No evidence of significant obstructive peripheral vascular disease of the lower extremities Reviewed, Interpreted and Dictated by Garland Reilly III, MD Transcribed by Sona Shaffer Authenticated and [facility]
== END 2023-11-27 23:59 | disposition home or self-care (01) ==
LOC: RAD 08:32
PROVIDERS: PCP Nurse Practitioner Family; Visit Provider Nurse Practitioner Family
DX: Z12.31 Encounter for screening mammogram for malignant neoplasm of breast (principal); R60.0 Localized edema
CPT/HCPCS: 77063; 77067; 93923

== ENCOUNTER 2023-12-15 09:55 | Emergency (ER) | payer BC, SELFPAY ==
[2023-12-15] VITALS (7 sets, daily range): BP systolic 87–125; BP diastolic 44–82; PULSE 66–99; RESP 13–20; TEMP 36.7–36.9; O2SAT 86–100; BMI 36.5
--- NOTE | 2023-12-15 09:55 | ECG_ITS ---
APPROVED REPORT Exam: Resting ECG HR:66 bpm ECG Measurements Heart Rate 66 AXES IN 135 P 70 QRSd 103 QRS 91 QT 378 T 65 QTc 391 Conclusion SINUS RHYTHM Electronically signed by : YOVANA KELLEY, 12/15/2023 15:05:46
--- NOTE | 2023-12-15 09:56 | XR_ITS ---
FINAL REPORT CLINICAL HISTORY: soa, chest pain COMPARISON: 05/26/2023 FINDINGS: A single portable view of the chest was obtained. The heart size and pulmonary vascularity are within normal limits. The mediastinum is within normal limits. No acute pulmonary abnormality is identified. The bony thorax is intact. Spinal rods are once again identified. IMPRESSION: No active cardiopulmonary disease. Reviewed, Interpreted and Dictated by Garland Reilly III, MD Transcribed by Sona Shaffer Authenticated and [facility]
[2023-12-15] MEDS: ASPIRIN 81MG CHEWABLE TABLET 324 MG PO (10:07)
[2023-12-15] MEDS: METHYLPREDNISOLONE SOD SUCC 125MG VIAL 125 MG IV (10:08)
[2023-12-15] MEDS: IPRATROPIUM/ALBUTEROL 3 ML NEB 6 ML IH (10:09)
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
[2023-12-15 10:32] LABS: Basophils # 0.1 K/mm3 (0-0.2); Basophils % 1.2 % (0.1-2.0); Eosinophils # 0.1 K/mm3 (0.0-0.4); Eosinophils % 1.4 % (0.1-12.0); Hematocrit 44.6 % (37.0-47.0); Hemoglobin 14.5 g/dL (12.2-16.2); Lymphocytes # 3.1 K/mm3 (0.7-4.5); Lymphocytes % 32.8 % (10-50); Mean Corpuscular HGB Conc 32.4 g/dL (31.8-35.4); Mean Corpuscular Volume 92.7 fl (81-99); Mean Platelet Volume 8.2 fl (7.4-10.4); Monocytes # 0.5 K/mm3 (0.1-1.0); Monocytes % 5.5 % (1.7-9.3); Neutrophils # 5.6 K/mm3 (1.8-7.8); Neutrophils % 59.1 % (37.0-80.0); Platelet Count 247 K/mm3 (142-424); Red Blood Count 4.81 M/mm3 (4.20-5.40); White Blood Count 9.5 K/mm3 (4.8-10.8)
[2023-12-15 10:35] LABS: Chloride 99 mmol/L (98-107); Potassium 3.6 mmoL/L (3.5-5.1); Sodium 140 mmol/L (136-145)
[2023-12-15 10:37] LABS: Blood Urea Nitrogen 9 mg/dl (7-17); Creatinine Clearance Estimated 127 mL/min (50-200); Estimated Glomerular Filt Rate 77 ml/min (>60); GFR (African American) 93 ML/MIN (>60)
[2023-12-15 10:38] LABS: Alanine Aminotransferase 21 U/L (12-78); Albumin Level 4.1 g/dl (3.5-5.0); Albumin/Globulin Ratio 1.1 (1.1-1.8); Alkaline Phosphatase 77 U/L (38-126); Anion Gap 7.6 mEq/L (5-15); Aspartate Amino Transferase 28 U/L (14-36); Bilirubin,Total 0.3 mg/dl (0.2-1.3); Calcium 9.6 mg/dl (8.4-10.2); Carbon Dioxide 37 mmol/L (22.0-30.0); Globulin 3.6 g/dL (1.3-3.2); Glucose 103 mg/dl (74-100); Total Protein,Serum 7.7 g/dl (6.3-8.2)
[2023-12-15 10:48] LABS: NT Pro Brain Natriuretic Pep. < 20.0 pg/mL (0-125)
[2023-12-15 11:02] LABS: Troponin I < 0.01 ng/ml (0.00-0.034)
[2023-12-15 11:21] LABS: Hemoglobin A1C 5.7 % (4.0-6.0)
== END 2023-12-15 12:33 | disposition home or self-care (01) ==
PROVIDERS: Emergency Provider Emergency Medicine; PCP Nurse Practitioner Family
DX: J44.1 Chronic obstructive pulmonary disease with (acute) exacerbation (principal); R07.9 Chest pain, unspecified; F17.210 Nicotine dependence, cigarettes, uncomplicated; R06.02 Shortness of breath; I10 Essential (primary) hypertension; R60.1 Generalized edema
CPT/HCPCS: 71045; 80053; 83036; 83880; 84484; 85025; 93005; 96374; 99284; J2919; J7620

== ENCOUNTER 2024-01-16 10:24 | Day surgery (SDC) | payer BC, SELFPAY ==
[2024-01-16] VITALS (7 sets, daily range): BP systolic 102–140; BP diastolic 47–97; PULSE 71–108; RESP 16–18; TEMP 36.3; O2SAT 91–96; BMI 33.6
[2024-01-16] MEDS: FENTANYL 100MCG/2ML VIAL 100 MCG (12:31)
[2024-01-16] MEDS: LIDOCAINE 1% 30ML PF VIAL 30 ML (12:31)
[2024-01-16] MEDS: CEFAZOLIN SODIUM 1 GM in 0.9 % SODIUM CHLORIDE 50 ML IV (12:32)
--- NOTE | 2024-01-16 13:07 | PC.NURSE ---
1249-pt reports pain 0/10 post trial
--- NOTE | 2024-01-16 15:45 | EXP.PAIN.PRO ---
Procedure Date: 01/16/24 Time: 15:45 Anesthesiologist:: Raghavendra Galvez MD Complications:: None Pre-procedure Diagnosis:: Postlaminectomy syndrome lumbar spine with lumbar colopathy symptoms Post-procedure Diagnosis:: Same Indications for Procedure:: This patient is a pleasant 48-year-old white female who we are treating for low back pain with lumbar colopathy symptoms. She has increasing pain in her low back and down both legs. She has failed all previous conservative therapy including injections, oral medications, physical therapy and she is not a candidate for any further surgery. We we will do a intrathecal pump trial today. She has had a successful psychological evaluation. Procedure Details:: Pain pump trial Pain pump trial Informed consent was obtained and the risk and benefits of the procedure was explained to the patient. The patient was taken to the procedure room and placed prone on the procedure table. Patient was prepped and draped in sterile fashion. C-arm fluoroscopy was used to view the lumbar spine. The skin and subcutaneous tissues were anesthetized using lidocaine. I placed a 18-gauge spinal needle into the L4-5 interspace and advanced until clear CSF was obtained. After this intrathecal catheter was inserted and advanced very easily to the L1 vertebral body. The needle was withdrawn. We were able to freely withdraw clear CSF through the catheter. We then injected intrathecal opioid single shot bolus of 25 mcg followed by saline and followed by the previous CSF that was withdrawn. The needle and catheter were then removed and a Band-Aid was placed. Patient tolerated the procedure well with no complications. We reevaluated the patient after 30 minutes to 1 hour. She was also reassessed by physical therapy. Patient was 90 to 100% better. She was much more functional. By all indications this did seem to be a successful intrathecal pump trial. Plan and Disposition:: Will follow-up with this patient in 2 weeks. Will evaluate efficacy of this trial. If successful we will plan on permanent placement with intrathecal morphine 1 mg/mL to start at 100 mcg/day. Catheter tip will be at the T8 vertebral body
--- NOTE | 2024-01-16 15:47 | EXP.PAIN.PRO ---
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
== END 2024-01-16 13:45 | disposition home or self-care (01) ==
LOC: SC.PAINP 10:24
PROVIDERS: PCP Nurse Practitioner Family; Visit Provider Anesthesiology
DX: M96.1 Postlaminectomy syndrome, not elsewhere classified (principal); M54.16 Radiculopathy, lumbar region
CPT/HCPCS: 62323; J0690; J3010

== ENCOUNTER 2024-01-21 14:13 | Outpatient (POV) | payer BC, SELFPAY ==
[2024-01-21 14:22] VITALS: BP 137/86; PULSE 85; RESP 18; O2SAT 97; BMI 34.0
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
== END 2024-01-21 23:59 | disposition home or self-care (01) ==
LOC: SC.PAIN 14:13
PROVIDERS: PCP Nurse Practitioner Family; Visit Provider Nurse Practitioner Family
DX: M51.36 Other intervertebral disc degeneration, lumbar region (principal); M96.1 Postlaminectomy syndrome, not elsewhere classified; F17.210 Nicotine dependence, cigarettes, uncomplicated; Z79.899 Other long term (current) drug therapy
CPT/HCPCS: 99212; G0463

== ENCOUNTER 2024-02-20 10:31 | Outpatient (CLI) | payer BC, SELFPAY ==
[2024-02-20 11:16] LABS: Basophils # 0.1 K/mm3 (0-0.2); Basophils % 1.1 % (0.1-2.0); Eosinophils # 0.1 K/mm3 (0.0-0.4); Eosinophils % 1.5 % (0.1-12.0); Hematocrit 45.3 % (37.0-47.0); Lymphocytes # 3.4 K/mm3 (0.7-4.5); Lymphocytes % 33.8 % (10-50); Mean Corpuscular Hemoglobin 29.3 pg (27.0-31.2); Mean Corpuscular Volume 94.4 fl (81-99); Mean Platelet Volume 7.7 fl (7.4-10.4); Monocytes # 0.6 K/mm3 (0.1-1.0); Monocytes % 6.1 % (1.7-9.3); Neutrophils # 5.7 K/mm3 (1.8-7.8); Neutrophils % 57.5 % (37.0-80.0); Platelet Count 340 K/mm3 (142-424); Red Cell Distribution Width 14.4 % (11.5-17.5); White Blood Count 9.9 K/mm3 (4.8-10.8)
[2024-02-20 11:19] LABS: Urine Pregnancy, HCG Qual. Negative (Negative)
[2024-02-20 11:36] LABS: Anion Gap 4.9 mEq/L (5-15); Blood Urea Nitrogen 9 mg/dl (7-17); Calcium 9.5 mg/dl (8.4-10.2); Carbon Dioxide 37 mmol/L (22.0-30.0); Chloride 103 mmol/L (98-107); Creatinine Clearance Estimated 141 mL/min (50-200); Estimated Glomerular Filt Rate 89 ml/min (>60); GFR (African American) 108 ML/MIN (>60); Glucose 102 mg/dl (74-100); Potassium 3.9 mmoL/L (3.5-5.1); Sodium 141 mmol/L (136-145)
[2024-02-20 12:09] LABS: Amphetamine/Metha Screen,Urine Negative ng/ml (<1000)
[2024-02-20 12:10] LABS: Barbiturates Screen,Urine Negative ng/ml (<200)
[2024-02-20 12:12] LABS: Benzodiazepines Screen,Urine Negative ng/ml (<200)
[2024-02-20 12:13] LABS: Cannabinoid Screen,Urine Negative ng/ml (<50); Cocaine Screen,Urine Negative ng/ml (<300)
[2024-02-20 12:14] LABS: Methadone Screen,Urine Negative ng/ml (<300); Opiate Screen,Urine Negative ng/ml (<300)
[2024-02-20 12:15] LABS: Phencyclidine Screen,Urine Negative ng/ml (<25)
== END 2024-02-20 23:59 | disposition home or self-care (01) ==
LOC: PREOP 10:32
PROVIDERS: PCP Nurse Practitioner Family; Visit Provider Anesthesiology
DX: Z01.818 Encounter for other preprocedural examination (principal); M51.36 Other intervertebral disc degeneration, lumbar region
CPT/HCPCS: 80048; 80307; 81025; 85025

== ENCOUNTER 2024-02-27 08:33 | Day surgery (SDC) | payer BC, SELFPAY ==
[2024-02-20 10:53] VITALS: BMI 35.4
[2024-02-27 08:48] VITALS: BP 128/86; PULSE 106; RESP 18; TEMP 36.2; O2SAT 93
[2024-02-27] MEDS: LACTATED RINGERS 1000ML 1,000 ML 25 ML IV (08:59)
[2024-02-27] MEDS: VANCOMYCIN/WATER FOR INJ (PEG) 1.5 GM/300 ML PIGGYBACK IV ×2 (09:14→10:20)
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
[2024-02-27] MEDS: GENTAMICIN 80 MG/2 ML VIAL (10:31)
[2024-02-27] MEDS: SODIUM CHLORIDE 0.9% 20ML VIAL 40 ML IV (10:31)
[2024-02-27] MEDS: LIDOCAINE 1% W/EPI 1:100,000 20ML VIAL 40 ML (10:31)
[2024-02-27 11:05] VITALS: BP 138/89; PULSE 90; RESP 18; TEMP 36.9; O2SAT 95
[2024-02-27 11:15] VITALS: BP 144/91; PULSE 89; RESP 16; O2SAT 96
--- NOTE | 2024-02-27 11:17 | P.OP_ITS ---
Date of procedure: 02/27/24 Pre-op Diagnosis:: Postlaminectomy syndrome lumbar spine with lumbar radiculopathy symptoms Post-op Diagnosis:: Same Procedure performed:: Permanent placement intrathecal pain pump with tunneled intrathecal catheter and pain pump generator placement Surgeon:: Raghavendra Galvez MD MANAGER OF ADMINISTRATION:: Bryanna Kellyashlee Anesthesia: MAC Estimated blood loss (mL): 5 Clinical Note:: This patient is a pleasant 48-year-old white female who we are treating for low back pain and leg pain with previous Whitley nargis surgery for scoliosis. She does have hardware in her back. She has pain in her back radiating down both legs. She has failed all previous conservative treatments including injections, medications, physical therapy and she is not a candidate for any further surgery. She has had a successful psychological evaluation and is successful intrathecal pump trial. She presents for permanent placement of her intrathecal pain pump today. Operative findings:: None Operative note:: Informed consent was obtained the risk and benefits of the procedure were explained to the patient. The patient was taken the operating room placed prone on the procedure table. She was prepped and draped in sterile fashion. C-arm fluoroscopy was used to view the left flank. Detention between the 12th rib and iliac crest the skin and subcutaneous tissues were anesthetized using lidocaine. I made an incision and dissected out the pain pump generator pocket. C-arm fluoroscopy was then used to view the lumbar spine. The skin and subcutaneous tissues adjacent to the L4-5 and L5-S1 interspace were anesthetized using lidocaine. I made an incision and dissected down to the lumbar paraspinous fascia. A 17-gauge spinal needle was inserted and advanced into the L4-5 i nterspace until clear CSF was obtained. After this intrathecal catheter was inserted and advanced very easily to the T8 vertebral body. The catheter was found to be in good position it was midline and posterior. The stylette of the catheter and the needle withdrawn. The catheter secured to the fascia with an anchor device and 2-0 Prolene. I filled the pump with 20 mL of intrathecal Dilaudid 1 mg/mL. I tunneled the catheter from the back to the generator pocket and attached catheter to the pump. We were able to freely withdraw clear CSF through the sideport. The pump was then placed in the pocket with an antibiotic pouch. Both incisions were closed 2-0 Vicryl followed by 4-0 nylon and adelia. Patient was taken recovery in stable condition. Patient tolerated the procedure well with no complications. Patient was programmed by the [employer] development representative to start at 100 mcg/day of intrathecal Dilaudid. Patient was discharged home neurologic intact with good relief of pain symptoms. Plan and disposition: Will follow-up with this patient in 1 week for wound check and reprogramming. Will follow-up in 2 to 3 weeks for suture and staple removal. Condition: stable Disposition: PACU Complications:: None
--- NOTE | 2024-02-27 11:23 | EXP.PAIN.PRO ---
Procedure Date: 02/27/24 Time: 11:23 Anesthesiologist:: Raghavendra Galvez MD Complications:: None Pre-procedure Diagnosis:: Degenerative disc disease of the lumbar spine with lumbar radiculopathy symptom Post-procedure Diagnosis:: Same Indications for Procedure:: This patient is a pleasant 48-year-old white female who we are treating for low back pain with lumbar radiculopathy symptoms. She has increasing pain in her back radiating into both hips and down her legs. She has failed all previous conservative treatments including injections, oral medications, physical therapy and she is not a candidate for back surgery surgery given her age and comorbidities. She has had a successful psychological evaluation. She presents for intrathecal pump trial today. Procedure Details:: Pain pump trial Informed consent was obtained and the risk and benefits of the procedure was explained to the patient. The patient was taken to the procedure room and placed prone on the procedure table. Patient was prepped and draped in sterile fashion. C-arm fluoroscopy was used to view the lumbar spine. The skin and subcutaneous tissues were anesthetized using lidocaine. I placed a 18-gauge spinal needle into the L4-5 interspace and advanced until clear CSF was obtained. After this intrathecal catheter was inserted and advanced very easily to the L1 vertebral body. The needle was withdrawn. We were able to freely withdraw clear CSF through the catheter. We then injected intrathecal opioid single shot bolus of 25 mcg followed by saline and followed by the previous CSF that was withdrawn. The needle and catheter were then removed and a Band-Aid was placed. Patient tolerated the procedure well with no complications. We reevaluated the patient after 30 minutes to 1 hour. She had 90 to 100% relief in pain symptoms. She was much more functional. She is walking better and standing better. By all indications this did seem to be a successful intrathecal pump trial. Patient was discharged home neurologic intact with good relief of pain symptoms. Plan and Disposition:: Will follow-up with this patient in 1 week to assess efficacy of this trial. If successful we will plan on permanent implant with intrathecal morphine 1 mg/mL discharge at 100 mcg/day. Catheter tip will be at the T8 vertebral body.
[2024-02-27 11:25] VITALS: BP 137/96; PULSE 83; RESP 16; O2SAT 94
[2024-02-27 11:35] VITALS: BP 136/92; PULSE 80; RESP 18; O2SAT 95
== END 2024-02-27 11:40 | disposition home or self-care (01) ==
PROVIDERS: PCP Nurse Practitioner Family; Visit Provider Anesthesiology
PROC: (CPT 62350; principal; 2024-02-27 10:30)
DX: M51.16 Intervertebral disc disorders with radiculopathy, lumbar region (principal); M96.1 Postlaminectomy syndrome, not elsewhere classified
CPT/HCPCS: 62350; 62362; 80048; 80307; 81025; 85025; 96374; C1755; C1772; J1580; J2250; J3010; J7120; S0028

== ENCOUNTER 2024-02-29 12:07 | Observation (INO) | payer BC, SELFPAY ==
[2024-02-29] VITALS (17 sets, daily range): BP systolic 102–146; BP diastolic 52–89; PULSE 35–123; RESP 12–20; TEMP 36.8; O2SAT 82–100; BMI 35.4
--- NOTE | 2024-02-29 12:22 | CT_ITS ---
PROCEDURE INFORMATION: Exam: CTA Abdomen and Pelvis With Contrast Exam date and time: 02/29/2024 1:48 PM Age: 48 years old Clinical indication: Other: Hypoxia; Additional info: SOB, hypoxia, tachycardia, pain pump 2 days ago TECHNIQUE: Imaging protocol: Computed tomographic angiography of the abdomen and pelvis with contrast. Exam focused on the arteries. 3D rendering (Not supervised by radiologist): MIP and/or 3D reconstructed images were created by the technologist. Radiation optimization: All CT scans at this facility use at least one of these dose optimization techniques: automated exposure control; mA and/or kV adjustment per patient size (includes targeted exams where dose is matched to clinical indication); or iterative reconstruction. Contrast material: ISOVUE 370; Contrast volume: 80 ml; Contrast route: INTRAVENOUS (IV); COMPARISON: CT ANGIO CHEST PE PROTOCOL 02/29/2024 1:48 PM FINDINGS: Lungs: Lung bases are unremarkable. Aorta: Aorta is nonaneurysmal. Celiac trunk and mesenteric arteries: No occlusion or significant stenosis. Renal arteries: No occlusion or significant stenosis. Right iliac arteries: No occlusion or significant stenosis. Left iliac arteries: No occlusion or significant stenosis. Liver: No focal hepatic lesions. Gallbladder and biliary ducts: There has been a cholecystectomy. Pancreas: No peripancreatic fluid stranding. No main pancreatic ductal dilation. Spleen: Multiple splenic granulomas. No splenomegaly. Adrenal glands: The adrenal glands are normal. Kidneys and ureters: s are symmetric. No nephrolithiasis or hydroureteronephrosis on either side. No solid lesions Stomach and bowel: No bowel wall thickening or distention. Appendix: A normal appendix is identified. Intraperitoneal space: There is no evidence of free intraperitoneal or pelvic fluid. Lymph nodes: No lymphadenopathy. Urinary bladder: Unremarkable. No mass. Reproductive: Unremarkable as visualized. Bones/joints: Nephrogra thoracolumbar junction. Bilateral Whitley rods in the thoracic spine.Photon starvation and streaky artifact from surgical hardware slightly obscures the assessment of the surrounding structures. There is S shaped scoliosis of the thoracolumbar junction. Soft tissues: Unremarkable. IMPRESSION: 1. No aortic aneurysm or dissection. Major aortic branches are patent. 2. No acute abnormality in the abdomen or pelvis.
--- NOTE | 2024-02-29 12:22 | CT_ITS ---
PROCEDURE INFORMATION: Exam: CTA Chest With Contrast Exam date and time: 02/29/2024 1:48 PM Age: 48 years old Clinical indication: Tachypnea; Additional info: SOB, hypoxia, tachycardia, pain pump 2 days ago TECHNIQUE: Imaging protocol: Computed tomographic angiography of the chest with contrast. Exam focused on the arteries. 3D rendering (Not supervised by radiologist): MIP and/or 3D reconstructed images were created by the technologist. Radiation optimization: All CT scans at this facility use at least one of these dose optimization techniques: automated exposure control; mA and/or kV adjustment per patient size (includes targeted exams where dose is matched to clinical indication); or iterative reconstruction. Contrast material: ISOVUE 370; Contrast volume: 80 ml; Contrast route: INTRAVENOUS (IV); COMPARISON: CR XR CHEST PORTABLE 12/15/2023 10:00 AM FINDINGS: Tubes, catheters and devices: The bilateral Whitley rods noted. There is dextroscoliosis of the thoracic spine. Pulmonary arteries: No evidence of filling defects to suggest pulmonary emboli. Great vessels off aortic arch: No flow-limiting stenosis in the proximal right subclavian artery. No flow-limiting stenosis in the proximal left subclavian artery. Aorta: Aorta is nonaneurysmal. Trachea: Main airways are patent. Lungs: No evidence of airspace opacity or interlobular septal thickening. No suspicious pulmonary lesions. Click pulmonary granulomas Pleural spaces: No pneumothorax. No pleural effusion. Heart: Unremarkable. No cardiomegaly. No pericardial effusion. Heart RV/LV ratio: The RV/LV ratio is less than 1. Lymph nodes: Unremarkable. No enlarged lymph nodes. Bones/joints: No acute osseous abnormality. Soft tissues: Unremarkable. IMPRESSION: 1. No evidence of filling defects to suggest pulmonary emboli. 2. No evidence of aortic dissection or aneurysm. Proximal supra-aortic branches are patent
--- NOTE | 2024-02-29 12:23 | ECG_ITS ---
APPROVED REPORT Exam: Resting ECG HR:115 bpm ECG Measurements Heart Rate 115 AXES LA 124 P 50 QRSd 105 QRS 91 QT 320 T 46 QTc 388 Conclusion SINUS TACHYCARDIA BORDERLINE RIGHT AXIS DEVIATION [QRS AXIS > 90] LOW QRS VOLTAGE IN PRECORDIAL LEADS [QRS DEFLECTION < 1.0 mV IN CHEST LEADS] ABNORMAL RHYTHM ECG UNCONFIRMED REPORT Electronically signed by : NIKOLE CHUA, 03/01/2024 04:27:34
[2024-02-29] MEDS: ONDANSETRON 4MG/2ML VIAL 4 MG IV ×2 (12:31→17:29)
[2024-02-29] MEDS: LACTATED RINGERS 1000ML 1,000 ML 999 ML IV (12:31)
[2024-02-29 12:38] LABS: Coronavirus 19, PCR Not Detected (NotDetected); Influenza A, PCR Not Detected (NotDetected); Influenza B, PCR Not Detected (NotDetected)
[2024-02-29 12:40] LABS: Basophils # 0.1 K/mm3 (0-0.2); Basophils % 0.9 % (0.1-2.0); Eosinophils # 0.1 K/mm3 (0.0-0.4); Eosinophils % 0.7 % (0.1-12.0); Hemoglobin 14.2 g/dL (12.2-16.2); Lymphocytes # 2.4 K/mm3 (0.7-4.5); Lymphocytes % 17.9 % (10-50); Mean Corpuscular HGB Conc 30.8 g/dL (31.8-35.4); Mean Corpuscular Hemoglobin 29.2 pg (27.0-31.2); Mean Corpuscular Volume 94.8 fl (81-99); Monocytes # 0.6 K/mm3 (0.1-1.0); Monocytes % 4.4 % (1.7-9.3); Neutrophils # 10.1 K/mm3 (1.8-7.8); Neutrophils % 76.2 % (37.0-80.0); Platelet Count 305 K/mm3 (142-424); Red Blood Count 4.85 M/mm3 (4.20-5.40); Red Cell Distribution Width 14.6 % (11.5-17.5); White Blood Count 13.3 K/mm3 (4.8-10.8)
[2024-02-29 12:41] LABS: Lactate Venous 1.4 mmol/L (0.4-2.0); VBG Base Excess 1.4 mmol/L (-2.4-2.3); VBG HCO3 26.9 mmol/L (23-30); VBG Oxygen Saturation 52.7 % (50-70); VBG PCO2 48.7 mmol/L (35-51); VBG PH 7.36 mmol/L (7.31-7.41); VBG PO2 26.2 mmol/L (28-40); VBG Total CO2 28.4 mmol/L (23-27)
[2024-02-29 12:52] LABS: Alanine Aminotransferase 29 U/L (12-78); Albumin Level 4.1 g/dl (3.5-5.0); Albumin/Globulin Ratio 1.1 (1.1-1.8); Alkaline Phosphatase 73 U/L (38-126); Anion Gap 6.3 mEq/L (5-15); Aspartate Amino Transferase 37 U/L (14-36); Bilirubin,Total 0.7 mg/dl (0.2-1.3); Blood Urea Nitrogen 12 mg/dl (7-17); Calcium 9.2 mg/dl (8.4-10.2); Carbon Dioxide 38 mmol/L (22.0-30.0); Chloride 95 mmol/L (98-107); Creatinine Clearance Estimated 109 mL/min (50-200); Estimated Glomerular Filt Rate 67 ml/min (>60); GFR (African American) 81 ML/MIN (>60); Globulin 3.7 g/dL (1.3-3.2); Glucose 118 mg/dl (74-100); Potassium 4.3 mmoL/L (3.5-5.1); Sodium 135 mmol/L (136-145); Total Protein,Serum 7.8 g/dl (6.3-8.2)
[2024-02-29 13:04] LABS: Troponin I 0.03 ng/ml (0.00-0.034)
[2024-02-29] MEDS: 0.9 % SODIUM CHLORIDE 50 ML VIAL IV (13:49)
[2024-02-29] MEDS: IOPAMIDOL-370 (76%);100ML BOTTLE 80 ML IV (13:50)
--- NOTE | 2024-02-29 13:56 | PC.NURSE ---
pt was given a warm blanket
[2024-02-29 15:15] LABS: Troponin I 0.04 ng/ml (0.00-0.034)
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
--- NOTE | 2024-02-29 15:52 | ECG_ITS ---
APPROVED REPORT Exam: Resting ECG HR:95 bpm ECG Measurements Heart Rate 95 AXES LA 155 P 64 QRSd 101 QRS 89 QT 360 T 62 QTc 412 Conclusion SINUS RHYTHM LOW QRS VOLTAGE IN PRECORDIAL LEADS [QRS DEFLECTION < 1.0 mV IN CHEST LEADS] BORDERLINE ECG UNCONFIRMED REPORT Electronically signed by : NIKOLE CHUA, 03/01/2024 03:48:28
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
--- NOTE | 2024-02-29 17:18 | PC.NURSE ---
pain management staff in room to decrease pain pump.
--- NOTE | 2024-02-29 17:21 | PC.NURSE ---
House notified of pt admission
--- NOTE | 2024-02-29 17:31 | PC.NURSE ---
housefellow called for bed placement
--- NOTE | 2024-02-29 17:48 | PC.NURSE ---
report given to Sugey FAGAN on floor
--- NOTE | 2024-02-29 18:07 | PC.NURSE ---
arrived by w/c from ED
[2024-02-29 18:24] LABS: Troponin I 0.04 ng/ml (0.00-0.034)
[2024-02-29] MEDS: PROCHLORPERAZINE 10MG/2ML VIAL 5 MG IV ×2 (18:33→22:20)
--- NOTE | 2024-02-29 18:59 | PC.WOUNDNOTE ---
incision sites for pain pump on 02/26
[2024-02-29] MEDS: SODIUM CHLORIDE 0.9% 10ML VIAL 10 ML IV (22:20)
[2024-02-29] MEDS: PANTOPRAZOLE 40MG VIAL 40 MG IV (22:20)
[2024-03-01] VITALS (9 sets, daily range): BP systolic 122–139; BP diastolic 75–89; PULSE 85–99; RESP 16–22; TEMP 37–37.4; O2SAT 90–98; BMI 35.4
--- NOTE | 2024-03-01 05:16 | PC.NURSE ---
Patient arrived to the floor shortly before i came on shift. Since I came on shift the patient has rested well. She woke up and complained of nausea once but was medicated per mar and has not complained since. She has tolerated ice chips tonight with no vomiting. she remains AXO and easily arousable. no other complaints. She remains on 3L NC she was turned down to 2 LNC she tolerated that well for a little but had to be turned back up to 3L NC when laying on her side as she dropped into the high 80s.
[2024-03-01 07:01] LABS: Basophils # 0.1 K/mm3 (0-0.2); Basophils % 0.6 % (0.1-2.0); Eosinophils # 0.1 K/mm3 (0.0-0.4); Eosinophils % 0.5 % (0.1-12.0); Hematocrit 41.3 % (37.0-47.0); Lymphocytes # 2.7 K/mm3 (0.7-4.5); Lymphocytes % 23.7 % (10-50); Mean Corpuscular HGB Conc 30.6 g/dL (31.8-35.4); Mean Corpuscular Hemoglobin 29.4 pg (27.0-31.2); Mean Corpuscular Volume 95.8 fl (81-99); Mean Platelet Volume 8.1 fl (7.4-10.4); Monocytes # 0.7 K/mm3 (0.1-1.0); Monocytes % 6.5 % (1.7-9.3); Neutrophils # 7.8 K/mm3 (1.8-7.8); Neutrophils % 68.7 % (37.0-80.0); Platelet Count 300 K/mm3 (142-424); Red Cell Distribution Width 14.8 % (11.5-17.5); White Blood Count 11.3 K/mm3 (4.8-10.8)
[2024-03-01 07:03] LABS: Chloride 97 mmol/L (98-107)
[2024-03-01 07:04] LABS: Albumin Level 3.8 g/dl (3.5-5.0); Potassium 4.3 mmoL/L (3.5-5.1); Sodium 135 mmol/L (136-145)
[2024-03-01 07:06] LABS: Alanine Aminotransferase 21 U/L (12-78); Albumin/Globulin Ratio 1.2 (1.1-1.8); Aspartate Amino Transferase 30 U/L (14-36); Blood Urea Nitrogen 10 mg/dl (7-17); Creatinine Clearance Estimated 141 mL/min (50-200); Estimated Glomerular Filt Rate 89 ml/min (>60); GFR (African American) 108 ML/MIN (>60); Globulin 3.2 g/dL (1.3-3.2)
[2024-03-01 07:07] LABS: Alkaline Phosphatase 68 U/L (38-126); Bilirubin,Total 0.6 mg/dl (0.2-1.3); Calcium 8.7 mg/dl (8.4-10.2); Glucose 89 mg/dl (74-100); Magnesium 2.1 mg/dl (1.6-2.3)
[2024-03-01 07:15] LABS: Anion Gap 10.3 mEq/L (5-15); Carbon Dioxide 32 mmol/L (22.0-30.0)
--- NOTE | 2024-03-01 07:36 | PC.NURSE ---
Patient oxygen saturation 79% on room air at rest.
[2024-03-01 08:11] LABS: Hemoglobin 12.7 g/dL (12.2-16.2)
[2024-03-01] MEDS: SULFA/TRIMETHOPRIM 1 TABLET 1 EACH PO (08:42)
[2024-03-01] MEDS: PARoxetine 10MG TABLET 10 MG PO (08:42)
[2024-03-01] MEDS: BISOPROLOL 5MG TABLET 5 MG PO (08:43)
[2024-03-01] MEDS: CYCLOBENZAPRINE 10MG TABLET 10 MG PO ×2 (08:43→13:44)
--- NOTE | 2024-03-01 11:18 | HMH.PHAINT1 ---
Pharmacy Intervention Comments: MEDICATION RECONCILIATION COMPLETED ON PATIENT USING EXTERNAL FILL HISTORY FROM PHARMACY. -RENAY KNOX, [place]
--- NOTE | 2024-03-01 11:50 | P.DS_ITS ---
General Admission date:: 02/29/24 Discharge date: 03/01/24 HPI HPI HPI: Ms. Lopez is a 48-year-old female with postlaminectomy syndrome and persistent low back pain and right hip pain. She presented as an outpatient on 02/26 to pain management where she had a pain pump placed and was initiated on Dilaudid therapy through the epidural. States she has been having persistent nausea, vomiting, insomnia and feeling sedated since initiation of medication. Denies any pain at this time. Denies any chest pain. On arrival to the ER was found to have O2 sats of 82% on room air. Placed on 2 L nasal cannula with im provement in saturations. Is a smoker and has a history of asthma. Workup in the ER with low concern for infection. Pain management was consulted and they turned her pump down. Medicine consulted for admission and further monitoring due to intractable nausea and vomiting and sedation. Upon arriving to the floor, patient continues to have nausea and vomiting. Able to answer questions but appears quite fatigued. No blood in her vomit. Has not had bowel movement since Friday. Denies any chest pain. Requesting to have the pain pump taken out if possible. Informed her that we would not be able to do that at this time. Will have further discussions pending her response to decreased infusion rate. Hospital Course Hospital Course Hospital Course: 48-year-old female who presented with hypoxia. Had pain pump placed Friday. Concern for oversedation and adverse effects from pain pump medications/opiates. ER consulted pain management, they turned the pump down in the ER. Requested admission for further management due to new hypoxia and oversedation. I agreed to admit for further management. Patient arrived to the floor anxious requesting her pain pump be turned off and removed. Informed her I could not remove it. Encouraged her to give it time for the decreased dose to take effect to see if her symptoms resolved. Treated for nausea. Proceeded to fall asleep soon after interview and appeared more comfortable. Showed improvement overnight. Able to wean oxygen but not been able to wean completely off. Requiring oxygen while sleeping. Pain management reevaluated and decreased pump even further today. Significant improvement in mentation and orientation. Tolerating p.o. intake. No further vomiting. Stable to discharge home with close follow-up with pain management. Problems addressed as follows: Acute hypoxemic respiratory failure Suspected COPD Longtime tobacco use Opiate overdose -Admitted for respiratory failure and initiated on oxygen. Able to wean to 1- 1/2 to 2 L by morning of discharge. Necessitating it mainly while sleeping but also had room air sat of 84% at rest on day of discharge. Will continue 2 L continuous for the next several days to week and encouraged her to wean as tolerated. Expect improvement with increased mobility and resolution of her oversedation. No focal findings on chest imaging concerning for pneumonia. Already on antibiotics prophylactically for pain pump pocket. Continue Bactrim double strength 1 tablet twice daily to complete 7-day course. Pain management consulted and assisted with care. Pump turned down to lowest setting on day of discharge. Patient still having benefits. Plan to follow-up closely with pain management in the next week. -White count improved to 11 on day of discharge. Kidney function electrolytes normal. Intractable nausea and vomiting: Received 2 doses of Zofran in the ER. Still having nausea and vomiting. Administered Compazine 5 mg x 1. Appears to be having a good response. Nausea and vomiting resolved overnight. Tolerating advancement of diet. Continue regular p.o. intake. Will initiate PPI at discharge for the next 2 weeks to help with gastritis component from intractable nausea and vomiting. Anxiety/depression: Paxil 10 mg daily daily Hypertension: continue bisoprolol 5mg daily. Resume HCTZ at discharge. Insomnia: Continue trazodone 50 mg nightly if unable to rest Class II obesity complicates all aspects of her care Total time spent on discharge 32 minutes in counseling, documentation, chart review, and direct care with patient. Exam Data for Last 24 hours Vital signs and Labs for Last 24 Hours: Temp Pulse Resp BP Pulse Ox O2 Del Method O2 Flow Rate 98.6 F 97 H 20 131/89 91 L Nasal Cannula 1.5 03/01/24 10:00 03/01/24 10:00 03/01/24 10:00 03/01/24 10:00 03/01/24 10:00 03/01/24 11:05 03/01/24 11:05 Laboratory Results - last 24 hr 02/29/24 12:28: WBC 13.3 H, RBC 4.85, Hgb 14.2, Hct 46.0, MCV 94.8, MCH 29.2, MCHC 30.8 L, RDW 14.6, Plt Count 305, MPV 8.0, Neut % (Auto) 76.2, Lymph % (Auto) 17.9, [place] % (Auto) 4.4, Eos % (Auto) 0.7, Baso % (Auto) 0.9, Neut # (Auto) 10.1 H, Lymph # (Auto) 2.4, [place] # (Auto) 0.6, Eos # (Auto) 0.1, Baso # (Auto) 0.1, Sodium 135 L, Potassium 4.3, Chloride 95 L, Carbon Dioxide 38 H, Anion Gap 6.3, BUN 12, Creatinine 0.90, Estimated Creat Clear 109, Estimated GFR 67, Est GFR ( Amer) 81, Glucose 118 H, Calcium 9.2, Total Bilirubin 0.7, AST 37 H, ALT 29, Alkaline Phosphatase 73, Troponin I 0.03, Total Protein 7.8, Albumin 4.1, Globulin 3.7 H, Albumin/Globulin Ratio 1.1, SARS-CoV-2 (PCR) Not detected, Influenza A Untype (PCR) Not detected, Influenza Type B (PCR) Not detected 02/29/24 12:29: VBG pH 7.36, VBG pCO2 48.7, VBG pO2 26.2 L, VBG HCO3 26.9, VBG Total CO2 28.4 H, VBG O2 Saturation 52.7, VBG Base Excess 1.4, VBG Lactic Acid 1.4 02/29/24 14:39: Troponin I 0.04 H 02/29/24 17:45: Troponin I 0.04 H 03/01/24 05:57: WBC 11.3 H, RBC 4.30, Hgb 12.7 D, Hct 41.3, MCV 95.8, MCH 29.4, MCHC 30.6 L, RDW 14.8, Plt Count 300, MPV 8.1, Neut % (Auto) 68.7, Lymph % (Auto) 23.7, [place] % (Auto) 6.5, Eos % (Auto) 0.5, Baso % (Auto) 0.6, Neut # (Auto) 7.8, Lymph # (Auto) 2.7, [place] # (Auto) 0.7, Eos # (Auto) 0.1, Baso # (Auto) 0.1, Sodium 135 L, Potassium 4.3, Chloride 97 L, Carbon Dioxide 32 H, Anion Gap 10.3, BUN 10, Creatinine 0.70 D, Estimated Creat Clear 141, Estimated GFR 89, Est GFR ( Amer) 108 D, Glucose 89 D, Calcium 8.7, Magnesium 2.1, Total Bilirubin 0.6, AST 30, ALT 21 D, Alkaline Phosphatase 68, Total Protein 7.0, Albumin 3.8, Globulin 3.2, Albumin/Globulin Ratio 1.2 I & O for Last 24 hours: Intake & Output 02/27/24 02/28/24 02/29/24 03/01/24 23:59 23:59 23:59 23:59 Intake Total 0 / 0 Output Total 300 / 300 Balance -300 / -300 Weight 90.718 kg 90.7 kg Constitutional Constitutional: no acute distress, obese and cooperative *Routine HEENT Exam Head: Present normocephalic Eye: Present EOMI and PERRL ENT: Present mucous membranes moist *Routine Neck Exam Neck: Present supple; Absent lymphadenopathy *Routine Respiratory Exam Respiratory: Present CTA bilaterally; Absent rhonchi, wheezes or crackles *Routine Cardiovascular Exam Cardiovascular: Present RRR *Routine Abdominal Exam Abdominal: Present soft and normoactive bowel sounds; Absent tenderness *Routine Rectal Exam Patient deferred: visual exam *Routine Exam Patient deferred: external exam *Routine Extremities Exam Extremities: Absent cyanosis, clubbing or edema Routine Back/Spine/Pelvis Exam Comments: Incision left lower and mid lower lumbar region from recent placement of pain pump. Clean dry and intact. *Routine Skin Exam Skin: Present warm; Absent rash *Routine Neurological Exam Neurological: Present alert and oriented X3 Results Data Completed and Pending Labs on day of discharge: Labs from last 24 hours 03/01/24 02/29/24 02/29/24 05:57 17:45 14:39 WBC 11.3 H RBC 4.30 Hgb 12.7 D Hct 41.3 MCV 95.8 MCH 29.4 MCHC 30.6 L RDW 14.8 Plt Count 300 MPV 8.1 Neut % (Auto) 68.7 Lymph % (Auto) 23.7 [place] % (Auto) 6.5 Eos % (Auto) 0.5 Baso % (Auto) 0.6 Neut # (Auto) 7.8 Lymph # (Auto) 2.7 [place] # (Auto) 0.7 Eos # (Auto) 0.1 Baso # (Auto) 0.1 VBG pH VBG pCO2 VBG pO2 VBG HCO3 VBG Total CO2 VBG O2 Saturation VBG Base Excess VBG Lactic Acid Sodium 135 L Potassium 4.3 Chloride 97 L Carbon Dioxide 32 H Anion Gap 10.3 BUN 10 Creatinine 0.70 D Estimated Creat Clear 141 Estimated GFR 89 Est GFR ( Amer) 108 D Glucose 89 D Calcium 8.7 Magnesium 2.1 Total Bilirubin 0.6 AST 30 ALT 21 D Alkaline Phosphatase 68 Troponin I 0.04 H 0.04 H Total Protein 7.0 Albumin 3.8 Globulin 3.2 Albumin/Globulin Ratio 1.2 SARS-CoV-2 (PCR) Influenza A Untype (PCR) Influenza Type B (PCR) 02/29/24 02/29/24 12:29 12:28 WBC 13.3 H RBC 4.85 Hgb 14.2 Hct 46.0 MCV 94.8 MCH 29.2 MCHC 30.8 L RDW 14.6 Plt Count 305 MPV 8.0 Neut % (Auto) 76.2 Lymph % (Auto) 17.9 [place] % (Auto) 4.4 Eos % (Auto) 0.7 Baso % (Auto) 0.9 Neut # (Auto) 10.1 H Lymph # (Auto) 2.4 [place] # (Auto) 0.6 Eos # (Auto) 0.1 Baso # (Auto) 0.1 VBG pH 7.36 VBG pCO2 48.7 VBG pO2 26.2 L VBG HCO3 26.9 VBG Total CO2 28.4 H VBG O2 Saturation 52.7 VBG Base Excess 1.4 VBG Lactic Acid 1.4 Sodium 135 L Potassium 4.3 Chloride 95 L Carbon Dioxide 38 H Anion Gap 6.3 BUN 12 Creatinine 0.90 Estimated Creat Clear 109 Estimated GFR 67 Est GFR ( Amer) 81 Glucose 118 H Calcium 9.2 Magnesium Total Bilirubin 0.7 AST 37 H ALT 29 Alkaline Phosphatase 73 Troponin I 0.03 Total Protein 7.8 Albumin 4.1 Globulin 3.7 H Albumin/Globulin Ratio 1.1 SARS-CoV-2 (PCR) Not detected Influenza A Untype (PCR) Not detected Influenza Type B (PCR) Not detected DS: Diagnosis Discharge Diagnosis (1) Acute hypoxemic respiratory failure: Status: Acute Code(s): J96.01 - Acute respiratory failure with hypoxia (2) Hypoxia: Status: Acute Code(s): R09.02 - Hypoxemia (3) Opiate overdose: Status: Acute Code(s): T40.601A - Poisoning by unspecified narcotics, accidental (unintentional), initial encounter (4) Lumbar postlaminectomy syndrome: Status: Acute Code(s): M96.1 - Postlaminectomy syndrome, not elsewhere classified (5) GERD (gastroesophageal reflux disease): Status: Acute Code(s): K21.9 - Gastro-esophageal reflux disease without esophagitis (6) HTN (hypertension): Status: Acute Code(s): I10 - Essential (primary) hypertension (7) Insomnia: Status: Acute Code(s): G47.00 - Insomnia, unspecified (8) Anxiety and depression: Status: Acute Code(s): F41.9 - Anxiety disorder, unspecified; F32.A - Depression, unspecified (9) DDD (degenerative disc disease), lumbar: Status: Acute Code(s): M51.36 - Other intervertebral disc degeneration, lumbar region (10) Tobacco abuse: Status: Acute Code(s): Z72.0 - Tobacco use Problem details: 3 ppd x 30 years Meds Home Medications and Allergies Home Medications ?Medication ?Instructions ?Recorded ?Confirmed ?Type paroxetine HCl 10 mg tablet 10 mg PO DAILY #90 tabs 11/18/23 02/29/24 Rx cholecalciferol (vitamin D3) 50 50 mcg PO DAILY #90 caps 11/19/23 02/29/24 Rx mcg (2,000 unit) capsule cyanocobalamin (vitamin B-12) 1,000 mcg IM WEEKLY 4 weeks #4 mL 11/19/23 02/29/24 Rx 1,000 mcg/mL injection solution sulfamethoxazole 800 1 tab PO BID 7 days #14 tabs 02/27/24 02/29/24 Rx mg-trimethoprim 160 mg tablet (Bactrim DS) albuterol sulfate 90 mcg/actuation 2 puff inhalation QIDP PRN 03/01/24 03/01/24 History aerosol inhaler (Ventolin HFA) Shortness Of Breath Or Wheezing bisoprolol fumarate 5 mg tablet 5 mg PO DAILY 03/01/24 03/01/24 History hydrochlorothiazide 12.5 mg tablet 12.5 mg PO DAILY 03/01/24 03/01/24 History omeprazole 40 mg capsule,delayed 40 mg PO DAILY 14 days #14 caps 03/01/24 Rx release sumatriptan succinate 50 mg tablet 50 mg PO DIRECTED 03/01/24 03/01/24 History trazodone 50 mg tablet 50 mg PO HSP PRN Insomnia 03/01/24 03/01/24 History New Prescriptions to Start Prescriptions: omeprazole Amaury Draper Allergies Allergy/AdvReac Type Severity Reaction Status Date / Time morphine AdvReac Mild Other Verified 02/27/24 08:44 Discharge Plan Disposition Patient Disposition: Home, Self-Care Condition: Good Follow up Plan Follow up with: Raghavendra Galvez MD [Staff Physician] - 03/04/24 9:00 am Darby Coffey APRN [Primary Care Provider] - 03/08/24 9:30 am Prescriptions/Medication Reconciliation: New omeprazole 40 mg capsule,delayed release(DR/EC) 40 mg PO DAILY 14 Days Qty: 14 0RF Continued paroxetine HCl 10 mg tablet 10 mg PO DAILY Qty: 90 3RF cholecalciferol (vitamin D3) 50 mcg (2,000 unit) capsule 50 mcg PO DAILY Qty: 90 3RF cyanocobalamin (vitamin B-12) 1,000 mcg/mL solution 1,000 mcg IM WEEKLY 28 Days Qty: 4 0RF sulfamethoxazole-trimethoprim [Bactrim DS] 800-160 mg tablet 1 tab PO BID 7 Days Qty: 14 0RF trazodone 50 mg tablet 50 mg PO HSP PRN (Reason: Insomnia) Patient Comments: TAKE 1 TABLET BY MOUTH EVERY NIGHT AT BEDTIME NEEDED FOR INSOMNIA sumatriptan succinate 50 mg tablet 50 mg PO DIRECTED Patient Comments: TAKE 1 TABLET BY MOUTH AT ONSET OF HEADACHE; IF NO RELIEF MAY REPEAT 1 TABLET 2 HOURS LATER. MAX 4 TABLETS IN 24 HOURS Rx Instructions: TAKE 1 TABLET BY MOUTH AT ONSET OF HEADACHE; IF NO RELIEF MAY REPEAT 1 TABLET 2 HOURS LATER. MAX 4 TABLETS IN 24 HOURS bisoprolol fumarate 5 mg tablet 5 mg PO DAILY Patient Comments: TAKE 1 TABLET BY MOUTH EVERY MORNING albuterol sulfate [Ventolin HFA] 90 mcg/actuation HFA aerosol inhaler 2 puff INHALATION QIDP PRN (Reason: Shortness Of Breath Or Wheezing) Patient Comments: INHALE 2 PUFFS BY MOUTH FOUR TIMES DAILY NEEDED FOR BREATHING PROBLEMS hydrochlorothiazide 12.5 mg tablet 12.5 mg PO DAILY Patient Comments: TAKE 1 TABLET BY MOUTH EVERY MORNING Other Ambulatory Orders: Home Medical Equipment (Routine) Location: None Selected Ordered By: Amaury Draper Problem Reconciliation Problems Reviewed?: Yes Patient Discharge Instructions ACTIVITY: Continue current activity DIET: continue same diet Patient Instructions: DI for Drug Overdose in Adults, Respiratory Failure Print Language: Greek Providers Primary Care Provider: Darby Coffey Admit Provider: Amaury Draper Attending Provider: Amaury Draper
--- NOTE | 2024-03-01 13:42 | P.PCN_ITS ---
Procedure Date: 03/01/24 Time: 13:42 Anesthesiologist:: Yuko Ortez APRN Complications:: None Pre-procedure Diagnosis:: Degenerative disc disease of lumbar spine with lumbar radiculopathy symptoms, status post intrathecal pain pump placement Post-procedure Diagnosis:: Same Indications for Procedure:: Patient is a pleasant 48-year-old female who presents via consult on the floor. Patient did have her intrathecal pain pump placed on Friday with no complications. Patient was started on Dilaudid 1 mg/mL with a daily dose of 0.1002 milligrams per day. Patient was discharged neurologically intact with no complications after her surgical procedure. Patient states that she ended at [facility] some issues on Friday when she went home with some nausea and vomiting and thought initially it was just related to her anesthesia. Patient states that then on Friday she still felt like she could not hold anything down. Patient states then Friday morning she woke up and she just felt like she could not really breathe. Patient came to the ER for evaluation. Patient denies any other issues that she is aware of. Patient states that she has never had anything like this come up before. Patient does state that after they dropped her dosage by 50% she did not really notice huge differences. Patient states that it may have helped some. She does rate her pain a 0 out of 10 and feels like her back is doing fine is just more the oxygen related issues. She states that she does still feel very unsteady on her feet and is still on continuous O2 that is now on 1 L. Patient states that earlier she did even just go to the restroom for a bowel movement but ended up having several nurses run in because her oxygen had dropped significantly. Her Evelio has been reviewed and is appropriate. Physical Exam: General: Alert and oriented x3, no acute distress, pleasant and cooperative Lungs: Respirations even and unlabored, symmetrical chest expansion Eyes: PERRL Musculoskeletal: Flexion and extension of lumbar [spine] somewhat guarded secondary to pain, [antalgic gait noted] Neurological: Speech clear, no gross sensory deficit Procedure Details:: Informed consent was obtained and the risk and benefits of the procedure were explained to the patient. Patient was taken to the procedure room where noninvasive monitoring was placed including noninvasive blood pressure cuff and pulse oximeter. Patient's pump was interrogated and was reprogrammed to Dilaudid 0.007 mg/day. The patient tolerated the procedure well with no complications. Plan and Disposition:: Patient was lowered to minimal flow on her intrathecal pump settings. Patient was counseled that we would still want to see her back in clinic on and see how she does from now until then as far as on her pain and oxygen levels. Patient was also counseled that she is still on her postop restrictions. Patient will return to clinic on for reevaluation of symptoms and plan of care. We will see the patient back in the clinic at the next intrathecal refill. Patient has been instructed to contact the clinic with any concerns before the next appointment. Dr. Galvez has reviewed this note and agrees with this plan of care. This note was dictated using voice recognition software and make contain errors or omissions. -- It Is medically necessary for this patient to continue to have their intrathecal pump refilled at regular intervals. This patient had an intrathecal pain pump implanted after meeting criteria of chronic intractable pain for greater than 3 months and failing conservative treatments. Patient has committed and been compliant to the treatment plan and all planned follow up care. Since implantation of the intrathecal pain pump, the patient has had decreased pain and been more functional. Oral medications have been reduced including intake of oral opioids. Patient continues to do well with intrathecal therapy with decrease in pain symptoms and increase in functional status. Stopping intrathecal medications can lead to life threatening withdrawal, seizures, cardiac arrest, severe pain, and possible . Pumps that are not refilled at regular intervals can be damages and cause and need for replacement. We continually titrate dose and concentration to optimize pain relief and function. We are limited in concentration for certain drugs to safely deliver medications through the pump and stay within the recommendations from the Polyan[employer] Consensus [employer] Guidelines. Depending on dose and concentration these pumps may need to be refilled sooner than 3 months as we titrate.
--- NOTE | 2024-03-01 14:12 | PC.NURSE ---
Pt pain pump interrogated and decreased to minimal flow rate at this time per provider instructions (LONNIE Thorpe). Explained to patient that I was decreasing her to minimal flow rate, pt verbalized understanding. Discussed follow up appointment with Ching Ortez APRN that is this and importance of keeping this appointment. Pt verbalized understanding. Pt primary nurse Kasie and Dr. Draper notified of decrease of pain pump to minimal flow rate per instructions of LONNIE Thorpe.
--- NOTE | 2024-03-01 15:08 | CARE MANAGER ---
Patient will need Oxygen at [facility] and requested [facility]. Information sent. RYLAN Colunga
[2024-03-01] MEDS: ONDANSETRON 4MG/2ML VIAL 4 MG IV (15:14)
--- NOTE | 2024-03-02 14:10 | CARE MANAGER ---
Attempted post-discharge phone call, no answer and no voicemail option.
--- NOTE | 2024-03-03 13:58 | CARE MANAGER ---
Contacted patient related to hospital discharge. She states she is feeling better. She has new medication and is aware of follow up appointments. Denies questions or concerns. RYLAN Colunga
== END 2024-03-01 16:08 | disposition home or self-care (01) ==
LOC: ER 16:38 → 2ND 17:34
PROVIDERS: Student in an Organized Health Care Education/Training Program; Admitting Provider Internal Medicine Adolescent Medicine; Emergency Provider Emergency Medicine; PCP Nurse Practitioner Family; Visit Provider Internal Medicine Adolescent Medicine
DX: J96.01 Acute respiratory failure with hypoxia (principal); T40.2X5A Adverse effect of other opioids, initial encounter; M96.1 Postlaminectomy syndrome, not elsewhere classified; K21.9 Gastro-esophageal reflux disease without esophagitis; I10 Essential (primary) hypertension; G47.00 Insomnia, unspecified; F41.9 Anxiety disorder, unspecified; F32.A Depression, unspecified; F17.210 Nicotine dependence, cigarettes, uncomplicated; Z97.8 Presence of other specified devices; E66.9 Obesity, unspecified; Z68.35 Body mass index [BMI] 35.0-35.9, adult; Z79.899 Other long term (current) drug therapy; M51.36 Other intervertebral disc degeneration, lumbar region; R11.2 Nausea with vomiting, unspecified; J45.909 Unspecified asthma, uncomplicated; D72.829 Elevated white blood cell count, unspecified
CPT/HCPCS: 36415; 71275; 74174; 80053; 82803; 83735; 84484; 85025; 87636; 93005; 99291; G0378; J0780; J2405; J7120; Q9967

== ENCOUNTER 2024-03-04 08:57 | Outpatient (POV) | payer BC, SELFPAY ==
[2024-03-04 08:59] VITALS: BP 129/78; PULSE 79; RESP 16; O2SAT 97; BMI 35.4
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
== END 2024-03-04 23:59 | disposition home or self-care (01) ==
LOC: SC.PAIN 08:58
PROVIDERS: PCP Nurse Practitioner Family; Visit Provider Nurse Practitioner Family
DX: M96.1 Postlaminectomy syndrome, not elsewhere classified (principal); J96.01 Acute respiratory failure with hypoxia; F17.210 Nicotine dependence, cigarettes, uncomplicated
CPT/HCPCS: 99212; G0463

== ENCOUNTER 2024-03-08 13:19 | Outpatient (CLI) | payer BC, SELFPAY ==
[2024-03-08 14:35] LABS: Chol/HDL Ratio 5.5 (1-3.5); Cholesterol 215 mg/dl (140-200); HDL Cholesterol 39 mg/dl (40-60); Triglycerides 427 mg/dl (30-150)
[2024-03-08 15:01] LABS: 25-OH Vitamin D, Total 28.5 ng/mL (30-100)
[2024-03-08 15:52] LABS: Direct LDL Cholesterol 111.23 mg/dL (100-129)
[2024-03-08 23:47] LABS: Vitamin B12 349 pg/mL (239-931)
== END 2024-03-08 23:59 | disposition home or self-care (01) ==
LOC: LAB.DROPOF 13:19
PROVIDERS: PCP Nurse Practitioner Family; Visit Provider Nurse Practitioner Family
DX: E55.9 Vitamin D deficiency, unspecified (principal); E78.1 Pure hyperglyceridemia; E53.8 Deficiency of other specified B group vitamins
CPT/HCPCS: 80061; 82306; 82607

== ENCOUNTER 2024-03-31 13:37 | Outpatient (POV) | payer BC, SELFPAY ==
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
[2024-03-31 14:56] VITALS: BP 141/76; PULSE 94; RESP 16; O2SAT 98; BMI 35.4
== END 2024-03-31 23:59 | disposition home or self-care (01) ==
PROVIDERS: PCP Nurse Practitioner Family; Visit Provider Nurse Practitioner Family
DX: M96.1 Postlaminectomy syndrome, not elsewhere classified (principal); M51.369 Other intervertebral disc degeneration, lumbar region without mention of lumbar back pain or lower extremity pain; F17.210 Nicotine dependence, cigarettes, uncomplicated
CPT/HCPCS: 99213; G0463

== ENCOUNTER 2024-04-22 13:47 | Outpatient (POV) | payer BC, SELFPAY ==
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
[2024-04-22 14:33] VITALS: BP 133/82; PULSE 79; RESP 16; O2SAT 96; BMI 35.4
== END 2024-04-22 23:59 | disposition home or self-care (01) ==
PROVIDERS: PCP Nurse Practitioner Family; Visit Provider Nurse Practitioner Family
DX: M96.1 Postlaminectomy syndrome, not elsewhere classified (principal); T81.49XA Infection following a procedure, other surgical site, initial encounter; F17.200 Nicotine dependence, unspecified, uncomplicated
CPT/HCPCS: 99212; G0463

== ENCOUNTER 2024-04-30 12:56 | Day surgery (SDC) | payer BC, SELFPAY ==
[2024-04-28 08:57] VITALS: BMI 37.2
[2024-04-30 13:03] VITALS: BP 134/87; PULSE 96; RESP 18; TEMP 36.1; O2SAT 91
[2024-04-30] MEDS: 0.9 % SODIUM CHLORIDE 1000ML 1,000 ML 25 ML IV (13:15)
[2024-04-30] MEDS: VANCOMYCIN HCL 1,750 MG in 0.9 % SODIUM CHLORIDE 250 ML 125 MG IV (13:18)
[2024-04-30 13:22] LABS: Chloride 99 mmol/L (98-107); Potassium 4.1 mmoL/L (3.5-5.1); Sodium 139 mmol/L (136-145)
[2024-04-30 13:25] LABS: Anion Gap 11.1 mEq/L (5-15); Blood Urea Nitrogen 9 mg/dl (7-17); Carbon Dioxide 33 mmol/L (22.0-30.0); Creatinine Clearance Estimated 115 mL/min (50-200); Estimated Glomerular Filt Rate 67 ml/min (>60); GFR (African American) 81 ML/MIN (>60)
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
[2024-04-30 13:26] LABS: Calcium 9.6 mg/dl (8.4-10.2); Glucose 110 mg/dl (74-100)
[2024-04-30 13:37] LABS: Basophils # 0.1 K/mm3 (0-0.2); Basophils % 1.3 % (0.1-2.0); Eosinophils # 0.2 K/mm3 (0.0-0.4); Eosinophils % 1.9 % (0.1-12.0); Hematocrit 47.5 % (37.0-47.0); Hemoglobin 15.6 g/dL (12.2-16.2); Lymphocytes # 3.2 K/mm3 (0.7-4.5); Lymphocytes % 36.2 % (10-50); Mean Corpuscular HGB Conc 32.9 g/dL (31.8-35.4); Mean Corpuscular Hemoglobin 30.1 pg (27.0-31.2); Mean Corpuscular Volume 91.4 fl (81-99); Mean Platelet Volume 7.9 fl (7.4-10.4); Monocytes # 0.5 K/mm3 (0.1-1.0); Monocytes % 5.5 % (1.7-9.3); Neutrophils # 4.8 K/mm3 (1.8-7.8); Neutrophils % 55.1 % (37.0-80.0); Platelet Count 301 K/mm3 (142-424); Red Cell Distribution Width 14.4 % (11.5-17.5); White Blood Count 8.7 K/mm3 (4.8-10.8)
[2024-04-30 13:44] LABS: HCG Qualitative, Serum Negative (Negative)
[2024-04-30] MEDS: SODIUM CHLORIDE 0.9% 20ML VIAL 80 ML IV (14:21)
[2024-04-30] MEDS: GENTAMICIN 80 MG/2 ML VIAL (14:22)
[2024-04-30] MEDS: LIDOCAINE 2% w/EPI 1:200,000 20ML VIAL 20 ML (14:22)
[2024-04-30 14:46] VITALS: BP 136/79; PULSE 80; RESP 18; TEMP 36.6; O2SAT 100
[2024-04-30 15:06] VITALS: BP 129/72; PULSE 79; RESP 18; O2SAT 97
--- NOTE | 2024-04-30 15:12 | EXP.OP.NOTE ---
Date of procedure: 04/30/24 Pre-op Diagnosis:: Infected pain pump pocket Post-op Diagnosis:: Same Procedure performed:: I& D pain pump pocket with washout and refill of pump Surgeon:: Raghavendra Galvez MD BOTTOMING ROOM SUPERVISOR:: Domenic Stanton Anesthesia: MAC Estimated blood loss (mL): 2 Clinical Note:: This patient is a pleasant 48-year-old white female who has an intrathecal Dilaudid pain pump in place. She has an infected pain pump pocket. We will I&D her pain pump pocket and washout the pain pump pocket. Will also refill her pump with lower concentration medication. Will refill her pump with intrathecal hydromorphone 0.5 mg/mL. Operative findings:: None Operative note:: Informed consent was obtained risk and benefits of the procedure were explained to the patient. The patient was taken the operating room placed prone on the procedure table. She was prepped and draped in sterile fashion. The skin and subcutaneous tissues overlying the pain pump were anesthetized using lidocaine. I made an incision and washed out the pocket of the pain pump. There was not much drainage from the pocket. It was a very superficial infection. We did washout with gentamicin antibiotic solution. We did refill the pump with 20 mL of intrathecal hydromorphone 0.5 mg/mL. We did run an priming bolus. We were able to access the sideport and withdraw medication and CSF through the sideport. The pump was then placed back in the pocket with an antibiotic pouch. The incision was closed with 2-0 Vicryl and 3-0 nylon. The pump was interrogated and started back at 0.025 mg/day. Patient tolerated the procedure well with no complications. She was placed on the regimen of antibiotics Bactrim DS for 10 days. Patient was discharged home neurologically intact with good relief of pain symptoms. Plan and disposition: Will follow-up with this patient in 1 week for wound check and reprogram. Will follow-up in 2 to 3 weeks for suture and staple removal. Condition: stable Disposition: PACU Complications:: None
[2024-04-30 15:16] VITALS: BP 117/76; PULSE 80; RESP 18; O2SAT 98
[2024-04-30 15:23] VITALS: BP 122/67; PULSE 78; RESP 18; O2SAT 96
== END 2024-04-30 15:16 | disposition home or self-care (01) ==
LOC: OR 12:57
PROVIDERS: PCP Nurse Practitioner Family; Visit Provider Anesthesiology
PROC: (CPT 10140; principal; 2024-04-30 14:30)
DX: T85.738A Infection and inflammatory reaction due to other nervous system device, implant or graft, initial encounter (principal)
CPT/HCPCS: 10140; 80048; 84703; 85025; 95991; 96374; J1580; J2250; J3370; J7030

== ENCOUNTER 2024-05-05 12:52 | Outpatient (POV) | payer BC, SELFPAY ==
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
[2024-05-05 13:25] VITALS: BP 113/86; PULSE 98; RESP 18; O2SAT 92; BMI 35.2
== END 2024-05-05 23:59 | disposition home or self-care (01) ==
PROVIDERS: PCP Nurse Practitioner Family; Visit Provider Nurse Practitioner Family
DX: M96.1 Postlaminectomy syndrome, not elsewhere classified (principal); M51.369 Other intervertebral disc degeneration, lumbar region without mention of lumbar back pain or lower extremity pain; F17.210 Nicotine dependence, cigarettes, uncomplicated
CPT/HCPCS: 99212; G0463

== ENCOUNTER 2024-05-26 10:51 | Outpatient (CLI) | payer OTHER, SELFPAY ==
[2024-05-26 11:30] LABS: Basophils # 0.1 K/mm3 (0-0.2); Basophils % 0.8 % (0.1-2.0); Eosinophils # 0.1 K/mm3 (0.0-0.4); Eosinophils % 1.5 % (0.1-12.0); Hematocrit 43.6 % (37.0-47.0); Hemoglobin 14.3 g/dL (12.2-16.2); Lymphocytes # 2.9 K/mm3 (0.7-4.5); Lymphocytes % 32.7 % (10-50); Mean Corpuscular HGB Conc 32.8 g/dL (31.8-35.4); Mean Corpuscular Hemoglobin 29.8 pg (27.0-31.2); Mean Corpuscular Volume 90.8 fl (81-99); Mean Platelet Volume 7.7 fl (7.4-10.4); Monocytes # 0.6 K/mm3 (0.1-1.0); Monocytes % 6.2 % (1.7-9.3); Neutrophils # 5.2 K/mm3 (1.8-7.8); Neutrophils % 58.9 % (37.0-80.0); Platelet Count 293 K/mm3 (142-424); Red Cell Distribution Width 14.6 % (11.5-17.5); White Blood Count 8.8 K/mm3 (4.8-10.8)
[2024-05-26 11:57] LABS: Chloride 102 mmol/L (98-107); Potassium 4.2 mmoL/L (3.5-5.1); Sodium 137 mmol/L (136-145)
[2024-05-26 11:59] LABS: Alanine Aminotransferase 21 U/L (12-78); Anion Gap 4.2 mEq/L (5-15); Aspartate Amino Transferase 31 U/L (14-36); Blood Urea Nitrogen 11 mg/dl (7-17); Carbon Dioxide 35 mmol/L (22.0-30.0); Estimated Glomerular Filt Rate 77 ml/min (>60); GFR (African American) 93 ML/MIN (>60)
[2024-05-26 12:00] LABS: Alkaline Phosphatase 85 U/L (38-126); Bilirubin,Direct 0.3 mg/dl (0.0-0.4); Bilirubin,Total 0.3 mg/dl (0.2-1.3); Calcium 10.6 mg/dl (8.4-10.2); Chol/HDL Ratio 5.4 (1-3.5); Cholesterol 248 mg/dl (140-200); Creatine Kinase 53 U/L (30-135); Glucose 93 mg/dl (74-100); HDL Cholesterol 46 mg/dl (40-60); Total Protein,Serum 6.8 g/dl (6.3-8.2); Triglycerides 372 mg/dl (30-150); VLDL Cholesterol 74 mg/dL (0-40)
[2024-05-26 12:06] LABS: C-Reactive Protein 8.8 mg/L (0-4)
[2024-05-26 12:11] LABS: Direct LDL Cholesterol 125.46 mg/dL (100-129)
[2024-05-26 12:12] LABS: NT Pro Brain Natriuretic Pep. 69.6 pg/mL (0-125)
[2024-05-26 12:18] LABS: Free T4 (Free Thyroxine) 1.21 ng/dl (0.78-2.19)
[2024-05-26 12:33] LABS: Thyroid Stimulating Hormone 1.43 uIU/mL (0.465-4.68)
[2024-05-26 13:28] LABS: Erythrocyte Sedimentation Rate 19 mm/hr (0-20)
[2024-05-27 13:30] LABS: Anti-Centromere B Antibodies <0.2 AI (0.0-0.9); Anti-Cyclic Citrullinated Pept 8 units (0-19); Anti-DNA (DS) Ab Qn <1 IU/mL (0-9); Anti-Jo-1 <0.2 AI (0.0-0.9); Anti-Smith Antibody <0.2 AI (0.0-0.9); Antichromatin Antibodies 0.2 AI (0.0-0.9); Antiscleroderma-70 Antibodies <0.2 AI (0.0-0.9); RNP Antibodies 0.2 AI (0.0-0.9); Sjogren's Anti-SS-A <0.2 AI (0.0-0.9); Sjogren's Anti-SS-B <0.2 AI (0.0-0.9)
== END 2024-05-26 23:59 | disposition home or self-care (01) ==
PROVIDERS: PCP Nurse Practitioner Family; Visit Provider Internal Medicine
DX: R60.0 Localized edema (principal); R53.83 Other fatigue; Z13.1 Encounter for screening for diabetes mellitus; Z68.36 Body mass index [BMI] 36.0-36.9, adult; I10 Essential (primary) hypertension; E78.1 Pure hyperglyceridemia; R06.00 Dyspnea, unspecified; E55.9 Vitamin D deficiency, unspecified; E53.8 Deficiency of other specified B group vitamins; R09.02 Hypoxemia; R94.31 Abnormal electrocardiogram [ECG] [EKG]; Z72.0 Tobacco use; M79.604 Pain in right leg; M79.605 Pain in left leg; R21 Rash and other nonspecific skin eruption; K21.9 Gastro-esophageal reflux disease without esophagitis
CPT/HCPCS: 36415; 80048; 80061; 80076; 82550; 83880; 84439; 84443; 85025; 85651; 86140; 86200; 86225; 86235

== ENCOUNTER 2024-05-31 09:03 | Outpatient (POV) | payer OTHER, SELFPAY ==
[2024-05-31 09:29] VITALS: BP 115/76; PULSE 91; RESP 16; O2SAT 93; BMI 36.3
--- NOTE | 2024-05-31 09:48 | EXP.PAIN.PRO ---
Procedure Date: 05/31/24 Time: 09:49 Anesthesiologist:: Yuko Ortez APRN Complications:: None Pre-procedure Diagnosis:: Degenerative disc disease of lumbar spine with lumbar radiculopathy symptoms Post-procedure Diagnosis:: Same Indications for Procedure:: Patient is a pleasant 48-year-old female who presents today for suture and staple removal and follow-up. Today she rates her pain a 7 out of 10. Patient denies any new trauma or injury. She does state that she is just continued to have worsening back pain. She states that she still is been very active and doing things around the house such as laundry and that she when she does these she has to sit down on a stool and that over time it does progressively worsen. Patient did previously have to have her pump incision washout and reclosed. She denies any additional changes from that appointment and states overall she feels like this incision is doing better. Patient does still have her sutures and adelia intact. She is managed with Dilaudid 0.5 mg/mL with a daily dose of 0.42814 mg/day. She denies any side effects from this medication. Patient is also managed with Flexeril 10 mg 3 times a day and meloxicam 15 mg daily. She denies any side effects from this medication. Her Evelio has been reviewed and is appropriate. Physical Exam: General: Alert and oriented x3, no acute distress, pleasant and cooperative Lungs: Respirations even and unlabored, symmetrical chest expansion Eyes: PERRL Musculoskeletal: Flexion and extension of lumbar [spine] somewhat guarded secondary to pain, [antalgic gait noted] Neurological: Speech clear, no gross sensory deficit Skin: Incision site is clean, dry, well-approximated with sutures and adelia in place Procedure Details:: Informed consent was obtained and the risk and benefits of the procedure were explained to the patient. Patient did have noninvasive monitoring was placed including noninvasive blood pressure cuff and pulse oximeter. Patient's pump was interrogated and was reprogrammed to Dilaudid 0.65783 mg/day. The patient tolerated the procedure well with no complications. Plan and Disposition:: Patient tolerated her intrathecal increase and reprogram with no complications and was discharged neurologically intact. We were able to take it out about half of her sutures and adelia. Patient was counseled to continue her postop restrictions the full 6 weeks. We will plan on having her back in 2 weeks to take out the remainder adelia if indicated. Patient agrees with this plan of care. I will also make sure she has refills on her Flexeril and meloxicam. Patient will return to clinic in 2 weeks for reevaluation of symptoms and plan of care. We will see the patient back in the clinic at the next intrathecal refill. Patient has been instructed to contact the clinic with any concerns before the next appointment. Dr. Galvez has reviewed this note and agrees with this plan of care. This note was dictated using voice recognition software and make contain errors or omissions. -- It Is medically necessary for this patient to continue to have their intrathecal pump refilled at regular intervals. This patient had an intrathecal pain pump implanted after meeting criteria of chronic intractable pain for greater than 3 months and failing conservative treatments. Patient has committed and been compliant to the treatment plan and all planned follow up care. Since implantation of the intrathecal pain pump, the patient has had decreased pain and been more functional. Oral medications have been reduced including intake of oral opioids. Patient continues to do well with intrathecal therapy with decrease in pain symptoms and increase in functional status. Stopping intrathecal medications can lead to life threatening withdrawal, seizures, cardiac arrest, severe pain, and possible . Pumps that are not refilled at regular intervals can be damages and cause and need for replacement. We continually titrate dose and concentration to optimize pain relief and function. We are limited in concentration for certain drugs to safely deliver medications through the pump and stay within the recommendations from the Polyanalgesic Consensus Committee Guidelines. Depending on dose and concentration these pumps may need to be refilled sooner than 3 months as we titrate. A UDS is needed to verify patient's compliance with our office pain contract. This is ordered based off specific treatments related to chronic pain with the potential to abuse certain medications.
== END 2024-05-31 23:59 | disposition home or self-care (01) ==
PROVIDERS: PCP Nurse Practitioner Family; Visit Provider Nurse Practitioner Family
DX: M51.16 Intervertebral disc disorders with radiculopathy, lumbar region (principal)
CPT/HCPCS: 62368; 99213; G0463

== ENCOUNTER 2024-06-02 07:12 | Outpatient (CLI) | payer OTHER, SELFPAY ==
--- NOTE | 2024-06-02 | CA_ITS ---
APPROVED REPORT Exam: Pharmacologic Technologist: Randi Adams Ht: 5 ft 2 in Wt: 215 lbs BSA: 1.97 m2 HR: 82 bpm BP: 128/85 mmHg Rhythm: Nsr, rightward axis Medical History Medical History: HTN Medications: Albuterol, Bisoprolol Fumarate, Vit D3, Bit B12, Cyclobenzaprine, Hydrochlorothiazide, Fenofibrate Nanocrystallized, Hydromorphone, Meloxicam, Nicotine, Paroxetine, Trazadone, Bactrim DS, Sumatriptan Succinate Allergies: Morphine Cardiac Risk Factors: HTN, FHX of CAD Stress Test Details Test: Lexiscan HR Resting HR: 82 bpm Max Heart Rate (APMHR): 172.700162 bpm Target HR (85% APMHR): 146.873790 bpm Recovery HR: 94 bpm BP Resting BP: 128.0/85.0 mmHg Max BP: 128.0/92.0 mmHg Recovery BP: 128.0/92.0 mmHg ECG Resting ECG: Nsr, rightward axis Stress ECG Conclusion Pt had mild soa, chest pressure, and head discomfort No significant changes Unremarkable lexiscan stress Electronically signed by : Kadie Dumont MD 06/03/2024 12:38:41
--- NOTE | 2024-06-02 07:22 | NM_ITS ---
APPROVED REPORT Exam: Nuclear Stress Test Indication: chest pain..soa..fatigue Patient Location: Outpatient Stress Tech: Randi Adams [place] Tech:Tamara Manzo JO RT(R)(N) Ht: 5 ft 3 in Wt: 200 lbs Bra Size: c HR: 83 bpm BP: 128/85 mmHg BSA: 1.93 m2 TID: 1.15 BMI: 35.4 History: chest pain..soa..fatigue Procedure: Patient received 0.4 mg of intravenous Lexiscan, resting heart rate 83 bpm, resting blood pressure 128/85 mmHg, with Lexiscan maximum heart rate achieved was 94 bpm which is 85 % of the maximum predicted heart rate and blood pressure was 118/91 mmHg. With Lexiscan, patient denied any complaint of chest pain. The patient was not able to lay on her abdomen for prone images. Cardiac Stress and Resting SPECT Images: Cardiac Stress and Resting SPECT images were obtained using technetium 99m Myoview 31.0 mCi stress and 10.44 mCi at rest. The patient was unable to lie on her abdomen. Therefore, prone stress imaging could not be performed. This may affect the diagnostic interpretation of the study findings. Resting and stress imaging in supine positions demonstrate no evidence of fixed or reversible perfusion defects. Gated imaging demonstrates normal global and regional LV systolic function. LVEF is calculated at 68%. Conclusion: No evidence of fixed or reversible perfusion defects. Gated imaging demonstrates normal global and regional LV systolic function. LVEF is calculated at 68%. Electronically signed by : Kadie Dumont MD 06/03/2024 12:37:19
--- NOTE | 2024-06-02 09:09 | CA_ITS ---
FINAL REPORT CLINICAL HISTORY: smoker, HLD, HTN, smoker, recent reinsertion of pain pump 04/2024. Denies trauma. Bilateral leg edema. COMPARISON: None FINDINGS: Multiple transverse and longitudinal scans were performed of the femoral popliteal deep venous system, with augmentation and compression maneuvers. Normal phasic flow was noted in the visualized deep venous system. No intraluminal increased echogenicity is noted to suggest thrombus. There is normal compression and augmentation of the venous structures. No abnormal venous collaterals are seen. IMPRESSION: No evidence of deep venous thrombosis of the bilateral lower extremities. Reviewed, Interpreted and Dictated by Shasha Fisher MD Transcribed by Sona Shaffer Authenticated and . [facility]
[2024-06-02] MEDS: REGADENOSON 0.4MG/5ML SYRINGE 0.4 MG IV (09:33)
[2024-06-02] MEDS: ISOTOPE MYOVIEW (PER STUDY) 1 DOSE IV (09:33)
[2024-06-02] MEDS: SODIUM CHLORIDE 0.9% 10ML SYR (RAD ONLY) 10 ML IV ×2 (09:33)
== END 2024-06-02 23:59 | disposition home or self-care (01) ==
LOC: RAD 07:13
PROVIDERS: PCP Nurse Practitioner Family; Visit Provider Internal Medicine
DX: R06.00 Dyspnea, unspecified (principal); R60.0 Localized edema; R53.83 Other fatigue; I10 Essential (primary) hypertension
CPT/HCPCS: 78452; 93017; 93018; 93970; A9502; J2785

== ENCOUNTER 2024-06-17 09:58 | Outpatient (POV) | payer OTHER, SELFPAY ==
--- NOTE | 2024-06-17 10:21 | EXP.PAIN.PRO ---
Procedure Date: 06/17/24 Time: 10:21 Anesthesiologist:: Yuko Ortez APRN Complications:: None Pre-procedure Diagnosis:: Degenerative disc disease of lumbar spine with lumbar radiculopathy symptoms Post-procedure Diagnosis:: Same Indications for Procedure:: Patient is a pleasant 48-year-old female who presents today for staple removal and follow-up. Today she rates her pain a 1 out of 10 however does state over the last few days she has had increased pain and denies any specific injury or trauma. Patient is currently managed with Dilaudid 0.5 mg/mL with a daily dose of 0.24103 mg/day. She denies any side effects from this medication. Patient is also managed with Flexeril 10 mg 3 times a day and meloxicam 15 mg daily. She denies any side effects from this medication however is requesting refills. Patient does also state that she would like to see about additional adjustment on her settings. Her Evelio has been reviewed and is appropriate. Physical Exam: General: Alert and oriented x3, no acute distress, pleasant and cooperative Lungs: Respirations even and unlabored, symmetrical chest expansion Eyes: PERRL Musculoskeletal: Flexion and extension of lumbar [spine] somewhat guarded secondary to pain, [antalgic gait noted] Neurological: Speech clear, no gross sensory deficit Procedure Details:: Informed consent was obtained and the risk and benefits of the procedure were explained to the patient. Patient did have noninvasive monitoring was placed including noninvasive blood pressure cuff and pulse oximeter. Patient's pump was interrogated and was reprogrammed to Dilaudid 0.03368 mg/day. The patient tolerated the procedure well with no complications. Plan and Disposition:: I will refill the patient's Flexeril and meloxicam and provide a 6-month supply of this medication. Patient was able to have all of her adelia removed on the lateral incision with skin glue and Steri-Strips applied. I did veterans rehabilitation counselor the patient to continue her postop restrictions the full 6 weeks. Patient will return to clinic in 1 month for reevaluation of symptoms and plan of care. We will see the patient back in the clinic at the next intrathecal refill. Patient has been instructed to contact the clinic with any concerns before the next appointment. Dr. Galvez has reviewed this note and agrees with this plan of care. This note was dictated using voice recognition software and make contain errors or omissions. -- It Is medically necessary for this patient to continue to have their intrathecal pump refilled at regular intervals. This patient had an intrathecal pain pump implanted after meeting criteria of chronic intractable pain for greater than 3 months and failing conservative treatments. Patient has committed and been compliant to the treatment plan and all planned follow up care. Since implantation of the intrathecal pain pump, the patient has had decreased pain and been more functional. Oral medications have been reduced including intake of oral opioids. Patient continues to do well with intrathecal therapy with decrease in pain symptoms and increase in functional status. Stopping intrathecal medications can lead to life threatening withdrawal, seizures, cardiac arrest, severe pain, and possible . Pumps that are not refilled at regular intervals can be damages and cause and need for replacement. We continually titrate dose and concentration to optimize pain relief and function. We are limited in concentration for certain drugs to safely deliver medications through the pump and stay within the recommendations from the Polyanalgesic Consensus Committee Guidelines. Depending on dose and concentration these pumps may need to be refilled sooner than 3 months as we titrate. A UDS is needed to verify patient's compliance with our office pain contract. This is ordered based off specific treatments related to chronic pain with the potential to abuse certain medications.
[2024-06-17 10:50] VITALS: BP 129/77; PULSE 95; RESP 18; O2SAT 100; BMI 35.9
== END 2024-06-17 23:59 | disposition home or self-care (01) ==
PROVIDERS: PCP Nurse Practitioner Family; Visit Provider Nurse Practitioner Family
DX: M51.16 Intervertebral disc disorders with radiculopathy, lumbar region (principal)
CPT/HCPCS: 62368; 99212; 99213; G0463

== ENCOUNTER 2024-07-19 09:42 | Outpatient (POV) | payer OTHER, SELFPAY ==
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
[2024-07-19 11:24] VITALS: BP 140/86; PULSE 103; RESP 18; O2SAT 94; BMI 35.4
== END 2024-07-19 23:59 | disposition home or self-care (01) ==
LOC: SC.PAIN 09:43
PROVIDERS: PCP Nurse Practitioner Family; Visit Provider Nurse Practitioner Family
DX: M96.1 Postlaminectomy syndrome, not elsewhere classified (principal); F17.210 Nicotine dependence, cigarettes, uncomplicated
CPT/HCPCS: 99212; G0463

== ENCOUNTER 2024-07-30 08:57 | Day surgery (SDC) | payer OTHER, SELFPAY ==
[2024-07-30 09:04] VITALS: BP 127/86; PULSE 86; RESP 16; TEMP 36.4; O2SAT 99; BMI 35.4
--- NOTE | 2024-07-30 09:14 | EXP.PAIN.PRO ---
Procedure Date: 07/30/24 Time: 09:32 Anesthesiologist:: Yuko Ortez APRN Complications:: None Pre-procedure Diagnosis:: Degenerative disc disease of the lumbar spine with lumbar radiculopathy symptoms Post-procedure Diagnosis:: Same Indications for Procedure:: Patient is a pleasant 48-year-old female who presents today for intrathecal refill and reprogram. Today she rates her pain a 3 out of 10. She denies any new trauma or injury. She does state that she is doing well with her current pump medication. She has been managed with Dilaudid 0.5 mg/mL with a daily dose of 0.29755 mg/day. Patient is also managed with Flexeril 10 mg 3 times a day and 15 mg meloxicam daily. She denies any side effects to any of these medications. Her Evelio has been reviewed and is appropriate. Physical Exam: General: Alert and oriented x3, no acute distress, pleasant and cooperative Lungs: Respirations even and unlabored, symmetrical chest expansion Eyes: PERRL Musculoskeletal: Flexion and extension of lumbar [spine] somewhat guarded secondary to pain, [antalgic gait noted] Neurological: Speech clear, no gross sensory deficit Procedure Details:: Informed consent was obtained and the risk and benefits of the procedure were explained to the patient. The patient had noninvasive monitoring placed including noninvasive blood pressure cuff and pulse oximeter. Patient's pump was interrogated. The area over the pump was cleansed with chlorhexidine as a cleansing solution. In sterile fashion the pump was accessed with a 22-gauge needle. Approximately 13.2 mls of the pump solution was removed and discarded appropriately. The pump was then refilled with 20 mL's of Dilaudid 0.5 mg/mL. The needle was withdrawn and a bandage was placed over the puncture site. The infusion rate was reprogrammed and continued at 0.91183 mg/day of Dilaudid. The patient tolerated well with no complication. Plan and Disposition:: Patient tolerated the procedure well with no complications and was discharged neurologically intact. Patient will return to clinic on or before their next intrathecal refill date. We will see the patient back in the clinic at the next intrathecal refill. Patient has been instructed to contact the clinic with any concerns before the next appointment. Dr. Galvez has reviewed this note and agrees with this plan of care. This note was dictated using voice recognition software and make contain errors or omissions. -- It Is medically necessary for this patient to continue to have their intrathecal pump refilled at regular intervals. This patient had an intrathecal pain pump implanted after meeting criteria of chronic intractable pain for greater than 3 months and failing conservative treatments. Patient has committed and been compliant to the treatment plan and all planned follow up care. Since implantation of the intrathecal pain pump, the patient has had decreased pain and been more functional. Oral medications have been reduced including intake of oral opioids. Patient continues to do well with intrathecal therapy with decrease in pain symptoms and increase in functional status. Stopping intrathecal medications can lead to life threatening withdrawal, seizures, cardiac arrest, severe pain, and possible . Pumps that are not refilled at regular intervals can be damages and cause and need for replacement. We continually titrate dose and concentration to optimize pain relief and function. We are limited in concentration for certain drugs to safely deliver medications through the pump and stay within the recommendations from the Pol[employer] Consensus Committee Guidelines. Depending on dose and concentration these pumps may need to be refilled sooner than 3 months as we titrate. A UDS is needed to verify patient's compliance with our office pain contract. This is ordered based off specific treatments related to chronic pain with the potential to abuse certain medications.
[2024-07-30 09:27] VITALS: BP 119/84; PULSE 81; RESP 18; O2SAT 92
[2024-07-30 09:28] VITALS: BP 119/84; PULSE 81; RESP 18; O2SAT 92
[2024-07-30 09:43] VITALS: BP 115/78; PULSE 85; RESP 16; O2SAT 98
== END 2024-07-30 09:43 | disposition home or self-care (01) ==
PROVIDERS: PCP Nurse Practitioner Family; Visit Provider Nurse Practitioner Family
DX: M51.16 Intervertebral disc disorders with radiculopathy, lumbar region (principal)
CPT/HCPCS: 62370

== ENCOUNTER 2024-09-01 16:46 | Emergency (ER) | payer OTHER, SELFPAY ==
[2024-09-01 16:58] VITALS: BP 162/112; PULSE 108; RESP 18; TEMP 37.1; O2SAT 98; BMI 35.4
[2024-09-01 17:05] LABS: Coronavirus 19, PCR Not Detected (NotDetected); Influenza A, PCR Not Detected (NotDetected); Influenza B, PCR Not Detected (NotDetected)
[2024-09-01 17:20] LABS: Strep Scrn Group A (Rapid) Negative (Negative)
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
[2024-09-01] MEDS: DEXAMETHASONE 4MG TABLET 10 MG PO (18:35)
[2024-09-01 18:43] VITALS: BP 160/98; PULSE 88; RESP 20; TEMP 36.9; O2SAT 95
== END 2024-09-01 18:50 | disposition home or self-care (01) ==
PROVIDERS: Emergency Provider Emergency Medicine; PCP Nurse Practitioner Family
DX: J10.1 Influenza due to other identified influenza virus with other respiratory manifestations (principal); R06.02 Shortness of breath; R05.9 Cough, unspecified; R42 Dizziness and giddiness; Z72.0 Tobacco use
CPT/HCPCS: 87430; 87636; 99283; J8540

== ENCOUNTER 2024-09-10 12:40 | Outpatient (CLI) | payer OTHER, SELFPAY ==
[2024-09-10] MEDS: ALBUTEROL 0.083% 2.5 MG/3 ML NEB IH (13:35)
== END 2024-09-10 23:59 | disposition home or self-care (01) ==
LOC: RT 12:41
PROVIDERS: PCP Nurse Practitioner Family; Visit Provider Internal Medicine Pulmonary Disease
DX: R06.09 Other forms of dyspnea (principal)
CPT/HCPCS: 94060; 94618; 94726; 94729; J7613

== ENCOUNTER → 2024-09-13 06:27 | Outpatient (CLI) | payer OTHER, SELFPAY | LOC: SL 06:28 | PROVIDERS: PCP Internal Medicine Pulmonary Disease; Visit Provider Internal Medicine Pulmonary Disease | DX: R06.81 Apnea, not elsewhere classified (principal); R40.0 Somnolence | CPT/HCPCS: G0399 ==

== ENCOUNTER 2024-11-18 09:46 | Outpatient (CLI) | payer OTHER, SELFPAY ==
[2024-11-18 13:34] LABS: Microscopic, Urine URINE MICROSCOPIC (MICROSCOPIC)
[2024-11-18 14:13] LABS: Basophils # 0.1 K/mm3 (0-0.2); Basophils % 0.6 % (0.1-2.0); Eosinophils # 0.2 Kmm3 (0.0-0.4); Eosinophils % 2.4 % (0.1-12.0); Hematocrit 48.2 % (37.0-47.0); Hemoglobin 15.3 g/dL (12.2-16.2); Immature Granulocytes # 0.03 10^3uL; Immature Granulocytes % 0.3 %; Lymphocytes # 3.2 K/mm3 (0.7-4.5); Lymphocytes % 32.3 % (10-50); Mean Corpuscular HGB Conc 31.7 g/dL (31.8-35.4); Mean Corpuscular Hemoglobin 29.3 pg (27.0-31.2); Mean Corpuscular Volume 92.3 fl (81-99); Mean Platelet Volume 10.7 fl (7.4-10.4); Monocytes # 0.7 K/mm3 (0.1-1.0); Monocytes % 7.2 % (1.7-9.3); Neutrophils # 5.7 K/mm3 (1.8-7.8); Neutrophils % 57.2 % (37.0-80.0); Nucleated Red Blood Cells # 0 10^3/uL; Nucleated Red Blood Cells % 0 %; Platelet Count 305 K/mm3 (142-424); Red Blood Count 5.22 M/mm3 (4.20-5.40); Red Cell Distribution Width 13.2 % (11.5-17.5)
[2024-11-18 14:27] LABS: Appearance,Urine SL CLOUDY (Clear); Bilirubin,Urine Negative (Negative); Blood, Urine TRACE-I (Negative); Color,Urine YELLOW (Yellow); Glucose,Urine (UA) Negative (Negative); Ketones,Urine Negative (Negative); Leukocyte Esterase,Urine Negative (Negative); Nitrate,Urine Negative (Negative); Protein,Urine TRACE (Negative); Specific Gravity, Urine 1.025 (1.005-1.030); Urobilinogen,Urine 0.2 EU/dl (0.2)
[2024-11-18 15:52] LABS: Alanine Aminotransferase 15 U/L (12-78); Albumin Level 4.5 g/dl (3.5-5.0); Albumin/Globulin Ratio 1.4 (1.1-1.8); Alkaline Phosphatase 81 U/L (38-126); Anion Gap 13.9 mEq/L (5-15); Aspartate Amino Transferase 24 U/L (14-36); Bilirubin,Total 0.5 mg/dl (0.2-1.3); Blood Urea Nitrogen 11 mg/dl (7-17); Calcium 9.9 mg/dl (8.4-10.2); Carbon Dioxide 38 mmol/L (22.0-30.0); Chloride 95 mmol/L (98-107); Cholesterol 122 mg/dl (140-200); Estimated Glomerular Filt Rate 89 ml/min (>60); GFR (African American) 108 ML/MIN (>60); Globulin 3.2 g/dL (1.3-3.2); Glucose 71 mg/dl (74-100); HDL Cholesterol 41 mg/dl (40-60); Potassium 4.9 mmoL/L (3.5-5.1); Sodium 142 mmol/L (136-145); Total Protein,Serum 7.7 g/dl (6.3-8.2); Triglycerides 192 mg/dl (30-150); VLDL Cholesterol 38 mg/dL (0-40)
[2024-11-18 16:03] LABS: Direct LDL Cholesterol 42.23 mg/dL (100-129)
[2024-11-18 16:06] LABS: Hemoglobin A1C 5.8 % (4.0-6.0)
[2024-11-18 16:09] LABS: Free T4 (Free Thyroxine) 1.31 ng/dl (0.78-2.19)
[2024-11-18 16:10] LABS: 25-OH Vitamin D, Total 26.6 ng/mL (30-100)
[2024-11-18 16:22] LABS: Thyroid Stimulating Hormone 2.35 uIU/mL (0.465-4.68)
[2024-11-18 16:41] LABS: Vitamin B12 216 pg/mL (239-931)
[2024-11-18 16:53] LABS: Iron 76 ug/dL (37-170)
[2024-11-18 17:03] LABS: Total Iron Binding Capacity 429 ug/dL (265-497)
[2024-11-18 17:29] LABS: Ferritin 34.7 ng/ml (6.24-137)
[2024-11-18 17:35] LABS: Bacteria,Urine 1+ /lpf; RBC,Urine Occasional #/hpf (0-3); Squamous Epithelial Cell,Urine 20-50 #/hpf (0-5)
--- OUTSIDE RECORDS SUMMARY | 2024-11-19 13:00 | XMS_ITS | Referral Summary ---
Author Organization [facility] Address [address] [place] [address] Phone Care Team Providers Care Visual And Stock Associate Name Role Phone Pcp, None MD Primary Care Provider [phone] Allergies No known active allergies Medications chlorhexidine (HIBICLENS) 4 % LIQDIndications:B oil Use underarms daily while in the shower. 118 mL 1 0 Active hydrophilic (AQUAPHOR) OINTIndications:P laque psoriasis Apply topically as needed. 454 g 0 Active hydrocortisone 2.5 % OINTIndications:P laque psoriasis Apply topically 2 (two) times daily. To both elbows. 453.6 g 1 0 Active buPROPion HCl ER (WELLBUTRIN XL) 300 MG [id number]:M ajor depressive disorder, recurrent, moderate (HCC) Take 1 tablet by mouth daily. 90 tablet 1 0 Active nicotine (NICODERM CQ) 21 MG/24HR [id number]:T obacco use disorder 1 patch by Transdermal route daily. 30 patch 2 0 Active hydrOXYzine HCl (ATARAX) 50 MG TABSIndications:P anic attacks Take 1 tablet by mouth 3 (three) times daily as needed. 90 tablet 1 0 Active albuterol 108 (90 Base) mcg/puff AERSIndications:R AD (reactive airway disease), mild persistent, uncomplicated Use 2 puffs every 6 (six) hours as needed. 18 g 1 Active Active Problems Problem Noted Date Diagnosed Date Chronic pelvic pain in female 01/01/2019 Major depressive disorder, recurrent, moderate 0 01/01/2019 Obesity with body mass index (BMI) of 35.0 to 39.9 without comorbidity 12/31/2018 Tobacco use disorder Resolved Problems Problem Noted Date Diagnosed Date Resolved Date Syncope 01/01/2019 01/30/2020 Generalized anxiety disorder 05/13/2017 01/30/2020 Seborrheic keratoses 02/01/2016 020 Other malaise and fatigue 02/20/2010 Contact dermatitis and other eczema, due to unspecified cause 02/20/2010 01/30/2020 Insomnia 07/12/2009 01/30/2020 Acute upper respiratory infection 07/12/2009 10/08/2018 Immunizations Immunization Administration Dates Next Due Diphtheria, Tetanus, and Per tussis (DTaP) 08/20/1982,07/26/1977,07/17/1976,04/02,01/23/1976 Influenza Vaccine, Inactivat ed, Quadrivalent PF 05/12/2017 Measles 04/10/1977 Pneumococcal Polysaccharide (PPV23) Pneumovax-23 01/10/2020 Poliovirus Inactivated, IM/SQ 03/24/1979 ,07/26/1977,05/09/1976,02/26 Tdap (Tetanus, Diphtheria & Pertussis) 0 Social History Tobacco Use Types Packs/Day Years Used Date Smoking Tobacco: Every Day Cigarettes 2 30 Smokeless Tobacco: Never Tobacco Cessation:Ready to Q uit: Yes; Counseling Given: Yes Alcohol Use Standard Drinks/Week Comments No 0 (1 standard drink = 0.6 oz pur e alcohol) 08/22/2010 AUDIT = 0 Comments No Sex and Gender Information Value Date Recorded Sex Assigned at Not on file Legal Sex Female 1:17 PM EDT Gender Identity Not on file Sexual Orientation Not on file Last Filed Vital Signs Vital Sign Reading Time Taken Comments Blood Pressure 139/92 01/10/2020 11:22 AM EDT Pulse 92 01/10/2020 11:22 AM EDT Temperature 36.5 C (97.7 F) 01/10/2020 11:22 AM EDT Respiratory Rate 20 03/05/2011 11:45 AM EDT Oxygen Saturation 95% 01/10/2020 11:22 AM EDT Inhaled Oxygen Concentration - - Weight 91.4 kg (201 lb 6.4 oz) 01/10/2020 11:22 AM EDT Height 160 cm (5' 3 ) 01/10/2020 11:22 AM EDT Body Mass Index 35.68 01/10/2020 11:22 AM EDT Plan of Treatment Not on file Procedures Procedure Name Priority Date/Time Associated Diagnosis Comments CYTOLOGY FINANCIAL ADVISER Today 01/12/2016 1:46 PM EDT Well woman exam from Last 3 Months or Most Recently Relevant to Health Maintenance Results * CYTOLOGY FINANCIAL ADVISER (01/12/2016 1:46 PM EDT) CYTOLOGY-FINANCIAL ADVISER CYTOLOGY GYNECOLOGICAL REPORT Name: [facility] COLLAZO [facility]#: [id number] Case #: [id number] Procedure\Addenda HPV High Risk Date Ordered: 01/19/2016 Status: Signed Out Date Complete: 01/24/2016 By: Kimberly TREVIÑO(ASCP) Date Reported: 01/24/2016 Interpretation NEGATIVE for one or more high risk HPV types. (Reference Range: Negative) The APTIMA HPV Assay is an in vitro nucleic acid amplification test for the qualitative detection of E6/E7 viral messenger RNA (mRNA) from 14 high-risk Human Papillomavirus (HPV) types (16,18,31,33,35,39, 45,51,52,56,58,59,6 6, and 68) in cervical specimens. The performance of this assay on T3000 processor post-processed specimens was verified by the [facility]. HPV testing performed at [facility], [address] [place] [id number]. Final Cytologic Diagnosis A. Thinprep Cervical/Endocervic al with HPV screen and 16/18 Genotyping if Indicated: Adequacy: Satisfactory for evaluation, endocervical transformation zone component present. Interpretation: Negative for intraepithelial lesion or malignancy. This specimen has been analyzed by the [employer] BooksPrep Imaging System ([employer].), an automated imaging and review system, which assists the supervisor denture department and/or pathologist in evaluation of cells on Thinprep Pap tests. Reviewed byKimberly Sheffield CT(ASCP) Source of Specimen(s) A: Thinprep Cervical/Endocervic al with HPV screen and 16/18 Genotyping if Indicated Clinical History Menstrual History: Not stated Signed out at [facility], [address] [place] [id number] [facility] Non-Formatted Report [facility] 01/12/2016 1:46 PM EDT 01/15/2016 9:34 AM EDT Comment:THINPREP CERVICAL/EN DOCERVICAL WITH HPV SCREEN AND 16/18 GENOTYPING IF INDICATED us Driss Tejada MD PATHOLOGY/CYTOLOGY ORDERABLES Final Result [facility] [address] [place] [phone] from Last 3 Months or Most Recently Relevant to Health Maintenance Care Teams Visual And Stock Associate Relationship Specialty Start Date End Date Pcp, None, PCP - General Internal Medicine 02/18/23
--- OUTSIDE RECORDS SUMMARY | 2024-11-19 13:00 | XMS_ITS | Clinical Summary ---
Author Organization [facility] Address [address] [place] [address] Care Team Providers Care Coal Briquette Machine Operator Name Role Phone Unavailable Primary Care Provider Unavailabl e Allergies No known active allergies Medications Ondansetron HCl (ZOFRAN PO) Take by mouth Active diclofenac (VOLTAREN) 50 MG EC tablet Take 50 mg by mouth 2 times daily Active Active Problems Problem Noted Date Diagnosed Date Carpal tunnel syndrome 12/08/2014 Family History Medical History Relation Name Comments Cancer Father Relation Name Status Comments Father Mother Alive Social History Tobacco Use Types Packs/Day Years Used Date Smoking Tobacco: Every Day Cigarettes Smokeless Tobacco: Never Tobacco Cessation:Counseling Given: Yes Alcohol Use Standard Drinks/Week Comments No 0 (1 standard drink = 0.6 oz pur e alcohol) Comments No Sex and Gender Information Value Date Recorded Sex Assigned at Not on file Legal Sex Female 9:54 PM EST Gender Identity Not on file Sexual Orientation Not on file Last Filed Vital Signs Vital Sign Reading Time Taken Comments Blood Pressure 146/96 07/15/2021 4:45 PM EST Pulse 66 07/15/2021 4:45 PM EST Temperature 36.7 C (98.1 F) 07/15/2021 1:55 PM EST Respiratory Rate 18 07/15/2021 4:45 PM EST Oxygen Saturation 98% 07/15/2021 4:45 PM EST Inhaled Oxygen Concentration - - Weight 88.2 kg (194 lb 7.1 oz) 07/15/2021 1:55 P M EST Height 160 cm (5' 3 ) 07/15/2021 1:55 PM EST Body Mass Index 34.44 07/15/2021 1:55 PM EST Plan of Treatment Not on file Insurance [employer] Advance Directives Documents on File Type Date Recorded Patient Cogeneration Technician Expl anation ACP-Advance Directive 03/05/2016 1:21 PM
--- OUTSIDE RECORDS SUMMARY | 2024-11-19 13:00 | XMS_ITS | Clinical Summary ---
Author Organization [facility] Address [address] [place] [address] Phone Care Team Providers Care Case Liner Name Role Phone Pcp, None MD Primary Care Provider [phone] Allergies No known active allergies Medications chlorhexidine [...] buPROPion HCl ER (WELLBUTRIN XL) 300 MG CK54Kmnezhkxgwz:M ajor depressive disorder, recurrent, moderate (HCC) Take 1 tablet by mouth daily. 90 tablet 1 0 Active nicotine (NICODERM CQ) 21 MG/24HR [place]86Ldxanndevda:T obacco use disorder 1 patch by Transdermal [...] ,07/26/1977,05/09/1976,02/26 Tdap (Tetanus, Diphtheria & Pertussis) 0 Family History Medical History Relation Name Comments Electrocution Brother Allergies Daughter 2 Lung cancer Father Diabetes Maternal Grandmother Heart Disease Maternal Grandmother Hypertension Maternal Grandmother Kidney Disease Maternal Grandmother Diabetes Mother Hypertension Mother Migraines Mother Relation Name Status Comments Brother Daughter 1 Alive Daughter 2 Alive Father Maternal Grandmother Mother Alive Sister Alive Son 1 Alive Son 2 Alive Son 3 Alive Social History Tobacco Use Types Packs/Day [...] 01/10/2020 11:22 AM EDT Plan of Treatment Health Maintenance Due Date Last Done Comments Mammogram Screening 2015 Pap Screening 01/11/2019 01/12/2016, 09/14, 07/12/2009 Colonoscopy 12/10/2020 Influenza Vaccine (Season Ended) 2025 05/12/2017 DTap,Tdap,and Td (7 - Td or Tdap) 01/09/2030 01/10/2020, 08/20/1982, 07/26/1977, Additional history exists RSV Vaccine (60+ or ) (1 - 1-dose 75+ series) 12/10/2050 Pneumococcal 0-49 Aged Out 01/10/2020 No longer eligible based on patient's age to complete this topic HPV Aged Out No longer eligi ble based on patient's age to complete this topic Meningococcal conjugate valent 4 (MCV4) Aged Out No longer eligible based on patient's age to complete this topic RSV Immunization (<20 months) Aged Out No longer eligible based on patient's age to complete this topic Procedures Procedure Name Priority Date/Time Associated Diagnosis Comments CYTOLOGY DEPLOYMENT MANAGER Today 01/12/2016 1:46 PM EDT Well woman exam from Last 3 Months or Most Recently Relevant to Health Maintenance Results * CYTOLOGY DEPLOYMENT MANAGER (01/12/2016 1:46 PM EDT) CYTOLOGY-DEPLOYMENT MANAGER CYTOLOGY GYNECOLOGICAL REPORT Name: [facility]O [facility]#: [id number] Case #: [id number] Procedure\Addenda HPV High Risk Date Ordered: 01/19/2016 [...] processor post-processed specimens was verified by the [facility]. HPV testing performed at [facility], [address] [place] [address]. Final Cytologic Diagnosis A. Thinprep Cervical/Endocervic al with HPV screen and 16/18 Genotyping if Indicated: Adequacy: Satisfactory for evaluation, endocervical transformation zone component present. Interpretation: Negative for intraepithelial lesion or malignancy. This specimen has been analyzed by the ThinPrep Imaging System ([employer].), an automated imaging and review system, which assists the manager marketing communication and/or pathologist in evaluation of cells on Thinprep Pap tests. Reviewed byKimberly TREVIÑO(ASCP) Source of Specimen(s) A: Thinprep Cervical/Endocervic al with HPV screen and 16/18 Genotyping if Indicated Clinical History Menstrual History: Not stated Signed out at [facility], [address] [place], [place] [id number] [facility] Non-Formatted Report [facility] 01/12/2016 1:46 PM EDT 01/15/2016 9:34 AM EDT Comment:THINPREP CERVICAL/EN DOCERVICAL WITH HPV SCREEN AND 16/18 GENOTYPING IF INDICATED Driss Tejada MD PATHOLOGY/CYTOLOGY ORDERABLES Final Result [facility] [address] [id number] from Last 3 Months or Most Recently Relevant to Health Maintenance Care Teams Case Liner Relationship Specialty Start Date End Date Pcp, Roverto, PCP - General Internal Medicine 02/18/23
== END 2024-11-18 23:59 | disposition home or self-care (01) ==
LOC: LAB.DROPOF 11-19 12:56
PROVIDERS: PCP Nurse Practitioner Family; Visit Provider Nurse Practitioner Family
DX: Z00.00 Encounter for general adult medical examination without abnormal findings (principal); Z12.31 Encounter for screening mammogram for malignant neoplasm of breast; G47.33 Obstructive sleep apnea (adult) (pediatric); E11.9 Type 2 diabetes mellitus without complications; R53.83 Other fatigue; F17.210 Nicotine dependence, cigarettes, uncomplicated; E53.8 Deficiency of other specified B group vitamins; E55.9 Vitamin D deficiency, unspecified; R09.02 Hypoxemia; Z13.1 Encounter for screening for diabetes mellitus; Z68.38 Body mass index [BMI] 38.0-38.9, adult; I10 Essential (primary) hypertension; F41.9 Anxiety disorder, unspecified; F32.A Depression, unspecified; E78.1 Pure hyperglyceridemia; R41.3 Other amnesia
CPT/HCPCS: 36415; 80053; 80061; 81001; 82306; 82607; 82728; 83036; 83540; 83550; 84156; 84439; 84443; 85025; 87086

== ENCOUNTER 2024-11-19 08:30 | Day surgery (SDC) | payer OTHER, SELFPAY ==
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
--- NOTE | 2024-11-19 08:39 | EXP.PAIN.PRO ---
Procedure Date: 11/19/24 Time: 08:41 Anesthesiologist:: Yuko Ortez APRN Complications:: None Pre-procedure Diagnosis:: Degenerative disc disease of lumbar spine, lumbar postlaminectomy syndrome Post-procedure Diagnosis:: Same Indications for Procedure:: Patient is a pleasant 48-year-old female who presents today for intrathecal refill and reprogram. Today she rates her pain a 0 out of 10. Patient does state that she actually was having increased back pain however she recently had to have 4 teeth pulled and is on pain medication temporarily for that and that it is helping in general with the overall back pain as well. Patient is currently managed with Dilaudid 0.5 mg/mL with a daily dose of 0.73381 mg/day. She denies any side effects from that. Patient is also managed with Flexeril 10 mg 3 times daily and meloxicam 15 mg daily from our office. She is requesting refills. Her Evelio has been reviewed and is appropriate. Physical Exam: General: Alert and oriented x3, no acute distress, pleasant and cooperative Lungs: Respirations even and unlabored, symmetrical chest expansion Eyes: PERRL Musculoskeletal: Flexion and extension of lumbar [spine] somewhat guarded secondary to pain, [antalgic gait noted] Neurological: Speech clear, no gross sensory deficit Procedure Details:: Informed consent was obtained and the risk and benefits of the procedure were explained to the patient. The patient had noninvasive monitoring placed including noninvasive blood pressure cuff and pulse oximeter. Patient's pump was interrogated. The area over the pump was cleansed with chlorhexidine as a cleansing solution. In sterile fashion the pump was accessed with a 22-gauge needle. Approximately 13.5 mls of the pump solution was removed and discarded appropriately. The pump was then refilled with 20 mL's of Dilaudid 0.5 mg/mL. The needle was withdrawn and a bandage was placed over the puncture site. The infusion rate was reprogrammed and continued at its current dosage. The patient tolerated well with no complication. Plan and Disposition:: Patient tolerated the procedure well with no complications and was discharged neurologically intact. I did discuss with her regarding the increased pain she has recently been experiencing since she is temporarily on extra medication that I will give her an extra 2-week follow-up appointment for possible adjustment. Patient was counseled that she can cancel this appointment if she ends up feeling better. She agrees with this plan of care. I will make sure she has refills on her Flexeril and meloxicam. Patient will return to clinic on or before their next intrathecal refill date. We will see the patient back in the clinic at the next intrathecal refill. Patient has been instructed to contact the clinic with any concerns before the next appointment. Dr. Galvez has reviewed this note and agrees with this plan of care. This note was dictated using voice recognition software and make contain errors or omissions. -- It Is medically necessary for this patient to continue to have their intrathecal pump refilled at regular intervals. This patient had an intrathecal pain pump implanted after meeting criteria of chronic intractable pain for greater than 3 months and failing conservative treatments. Patient has committed and been compliant to the treatment plan and all planned follow up care. Since implantation of the intrathecal pain pump, the patient has had decreased pain and been more functional. Oral medications have been reduced including intake of oral opioids. Patient continues to do well with intrathecal therapy with decrease in pain symptoms and increase in functional status. Stopping intrathecal medications can lead to life threatening withdrawal, seizures, cardiac arrest, severe pain, and possible . Pumps that are not refilled at regular intervals can be damages and cause and need for replacement. We continually titrate dose and concentration to optimize pain relief and function. We are limited in concentration for certain drugs to safely deliver medications through the pump and stay within the recommendations from the Polyanalgesic Consensus Committee Guidelines. Depending on dose and concentration these pumps may need to be refilled sooner than 3 months as we titrate. A UDS is needed to verify patient's compliance with our office pain contract. This is ordered based off specific treatments related to chronic pain with the potential to abuse certain medications.
[2024-11-19 08:44] VITALS: BP 140/85; PULSE 103; RESP 18; O2SAT 94
[2024-11-19 08:48] VITALS: BP 133/87; PULSE 98; RESP 16; O2SAT 91; BMI 38.0
[2024-11-19 08:55] VITALS: BP 147/85; PULSE 103; RESP 16; O2SAT 91
== END 2024-11-19 08:55 | disposition home or self-care (01) ==
PROVIDERS: PCP Nurse Practitioner Family; Visit Provider Nurse Practitioner Family
DX: M51.16 Intervertebral disc disorders with radiculopathy, lumbar region (principal); M96.1 Postlaminectomy syndrome, not elsewhere classified; J45.909 Unspecified asthma, uncomplicated; F17.210 Nicotine dependence, cigarettes, uncomplicated; I10 Essential (primary) hypertension; F41.9 Anxiety disorder, unspecified; G89.29 Other chronic pain; Z98.51 Tubal ligation status; Z79.891 Long term (current) use of opiate analgesic; Z88.5 Allergy status to narcotic agent; Z79.899 Other long term (current) drug therapy; Z90.49 Acquired absence of other specified parts of digestive tract
CPT/HCPCS: 62370

== ENCOUNTER 2024-12-02 09:36 | Outpatient (POV) | payer OTHER, SELFPAY ==
--- OUTSIDE RECORDS SUMMARY | 2024-12-02 09:41 | XMS_ITS | Clinical Summary ---
Author Organization [facility] Address [address] [place] [address] Care Team Providers Care Preparation Supervisor Name Role Phone Unavailable Primary Care Provider [...] Plan of Treatment Not on file Insurance [employer] Advance Directives Documents on File Type Date Recorded Patient Food And Beverage Service Manager Expl anation ACP-Advance Directive 03/05/2016 1:21 PM
--- OUTSIDE RECORDS SUMMARY | 2024-12-02 09:41 | XMS_ITS | Referral Summary ---
Author Organization [facility] Address [address] [place] [address] Phone Care Team Providers Care Sales Clerk Food Name Role Phone Pcp, None MD Primary Care Provider Allergies No known active allergies Medications chlorhexidine [...] buPROPion HCl ER (WELLBUTRIN XL) 300 MG JR47Ngfvpflrmuk:M ajor depressive disorder, recurrent, moderate (HCC) Take 1 tablet by mouth daily. 90 tablet 1 0 Active nicotine (NICODERM CQ) 21 MG/24HR VP93Msvxdkxpjwz:T obacco use disorder 1 patch by Transdermal [...] Name Priority Date/Time Associated Diagnosis Comments CYTOLOGY NATURAL SCIENCE CURATOR Today 01/12/2016 1:46 PM EDT Well woman exam from Last 3 Months or Most Recently Relevant to Health Maintenance Results * CYTOLOGY NATURAL SCIENCE CURATOR (01/12/2016 1:46 PM EDT) CYTOLOGY-NATURAL SCIENCE CURATOR CYTOLOGY GYNECOLOGICAL REPORT Name: [facility] COLLAZO [facility]#: [id number] Case #: [id number] Procedure\Addenda HPV High Risk Date Ordered: 01/19/2016 [...] processor post-processed specimens was verified by the [facility] Microbiology Laboratory. HPV testing performed at [facility], [address] [place] [address]. Final Cytologic Diagnosis A. Thinprep Cervical/Endocervic al with HPV screen and 16/18 Genotyping if Indicated: Adequacy: Satisfactory for evaluation, endocervical transformation zone component present. Interpretation: Negative for intraepithelial lesion or malignancy. This specimen has been analyzed by the ParrutPrep Imaging System ([employer] an automated imaging and review system, which assists the fly worker and/or pathologist in evaluation of cells on Thinprep Pap tests. Reviewed byKimberly Sheffield CT(ASCP) Source of Specimen(s) A: Thinprep Cervical/Endocervic al with HPV screen and 16/18 Genotyping if Indicated Clinical History Menstrual History: Not stated Signed out at [facility], [address] [place] [address] [facility] Non-Formatted Report [facility] 01/12/2016 1:46 PM EDT 01/15/2016 9:34 AM EDT Comment:THINPREP CERVICAL/EN DOCERVICAL WITH HPV SCREEN AND 16/18 GENOTYPING IF INDICATED us Driss Tejada MD PATHOLOGY/CYTOLOGY ORDERABLES Final Result [facility] [address] [place] [phone] from Last 3 Months or Most Recently Relevant to Health Maintenance Care Teams Sales Clerk Food Relationship Specialty Start Date End Date Pcp, None, PCP - General Internal Medicine 02/18/23
--- OUTSIDE RECORDS SUMMARY | 2024-12-02 09:41 | XMS_ITS | Clinical Summary ---
Author Organization [facility] Address [address] [place] [address] Phone Care Team Providers Care Social Media Campaign Manager Name Role Phone Pcp, None MD Primary Care Provider [phone] Allergies No known active allergies Medications chlorhexidine [...] buPROPion HCl ER (WELLBUTRIN XL) 300 MG EZ53Dnxwjclzdeo:M ajor depressive disorder, recurrent, moderate (HCC) Take 1 tablet by mouth daily. 90 tablet 1 0 Active nicotine (NICODERM CQ) 21 MG/24HR TD83Cznzylersif:T obacco use disorder 1 patch by Transdermal [...] Name Priority Date/Time Associated Diagnosis Comments CYTOLOGY BRASS FINISHER Today 01/12/2016 1:46 PM EDT Well woman exam from Last 3 Months or Most Recently Relevant to Health Maintenance Results * CYTOLOGY BRASS FINISHER (01/12/2016 1:46 PM EDT) CYTOLOGY-BRASS FINISHER CYTOLOGY GYNECOLOGICAL REPORT Name: C[facility] COLLAZO [facility]#: [id number] Case #: [id number] Procedure\Addenda HPV High Risk Date Ordered: 01/19/2016 [...] processor post-processed specimens was verified by the [facility] Clinical Microbiology Laboratory. HPV testing performed at [facility], [address] [place] [address]. Final Cytologic Diagnosis A. Thinprep Cervical/Endocervic al with HPV screen and 16/18 Genotyping if Indicated: Adequacy: Satisfactory for evaluation, endocervical transformation zone component present. Interpretation: Negative for intraepithelial lesion or malignancy. This specimen has been analyzed by the ThinPrep Imaging System ([employer] an automated imaging and review system, which assists the mica sizer and/or pathologist in evaluation of cells on Thinprep Pap tests. Reviewed byKimberly TREVIÑO(ASCP) Source of Specimen(s) A: Thinprep Cervical/Endocervic al with HPV screen and 16/18 Genotyping if Indicated Clinical History Menstrual History: Not stated Signed out at [facility], [address] [place], [place] [id number] [facility] Non-Formatted Report [facility] 01/12/2016 1:46 PM EDT 01/15/2016 9:34 AM EDT Comment:THINPREP CERVICAL/EN DOCERVICAL WITH HPV SCREEN AND 16/18 GENOTYPING IF INDICATED Driss Tejada MD PATHOLOGY/CYTOLOGY ORDERABLES Final Result [facility] [address] [id number] from Last 3 Months or Most Recently Relevant to Health Maintenance Care Teams Social Media Campaign Manager Relationship Specialty Start Date End Date Pcp, Roverto, PCP - General Internal Medicine 02/18/23
--- NOTE | 2024-12-02 10:09 | P.PCN_ITS ---
Procedure Date: 12/02/24 Time: 10:09 Anesthesiologist:: Yuko Ortez APRN Complications:: None Pre-procedure Diagnosis:: Degenerative disc disease of lumbar spine with lumbar radiculopathy symptoms Post-procedure Diagnosis:: Same Indications for Procedure:: Patient is a pleasant 48-year-old female who presents today for intrathecal adjustment and reprogram. Today she rates her pain a 7 out of 10. Patient denies any new falls or injuries. She does feel like the pump is still helping but does need additional adjustment. Patient is currently managed with Dilaudid 0.5 mg/mL with a daily dose of 0.10284 mg/day. She denies any side effects. Her Evelio has been reviewed and is appropriate. Physical Exam: General: Alert and oriented x3, no acute distress, pleasant and cooperative Lungs: Respirations even and unlabored, symmetrical chest expansion Eyes: PERRL Musculoskeletal: Flexion and extension of lumbar [spine] somewhat guarded secondary to pain, [antalgic gait noted] Neurological: Speech clear, no gross sensory deficit Procedure Details:: Informed consent was obtained and the risk and benefits of the procedure were explained to the patient. Patient did have noninvasive monitoring was placed including noninvasive blood pressure cuff and pulse oximeter. Patient's pump was interrogated and was reprogrammed to increased 10% to Dilaudid 0.06804 mg/day. The patient tolerated the procedure well with no complications. Plan and Disposition:: Patient tolerated the procedure well with no complications and was discharged neurologically intact. We will give her a tentative 2-week follow-up for additional pump adjustment. Patient was counseled that if she ends up not needing this appointment to call us and we will cancel it at her convenience. Patient agrees with this plan of care. Patient will return to clinic on or before their next intrathecal refill date. We will see the patient back in the clinic at the next intrathecal refill. Patient has been instructed to contact the clinic with any concerns before the next appointment. Dr. Galvez has reviewed this note and agrees with this plan of care. This note was dictated using voice recognition software and make contain errors or omissions. -- It Is medically necessary for this patient to continue to have their intrathecal pump refilled at regular intervals. This patient had an intrathecal pain pump implanted after meeting criteria of chronic intractable pain for greater than 3 months and failing conservative treatments. Patient has committed and been compliant to the treatment plan and all planned follow up care. Since implantation of the intrathecal pain pump, the patient has had decreased pain and been more functional. Oral medications have been reduced including intake of oral opioids. Patient continues to do well with intrathecal therapy with decrease in pain symptoms and increase in functional status. Stopping intrathecal medications can lead to life threatening withdrawal, seizures, c ardiac arrest, severe pain, and possible . Pumps that are not refilled at regular intervals can be damages and cause and need for replacement. We continually titrate dose and concentration to optimize pain relief and function. We are limited in concentration for certain drugs to safely deliver medications through the pump and stay within the recommendations from the Polyanalgesic Consensus Committee Guidelines. Depending on dose and concentration these pumps may need to be refilled sooner than 3 months as we titrate. A UDS is needed to verify patient's compliance with our office pain contract. This is ordered based off specific treatments related to chronic pain with the potential to abuse certain medications.
[2024-12-02 10:53] VITALS: BP 138/83; PULSE 89; RESP 12; O2SAT 94; BMI 38.0
== END 2024-12-02 23:59 | disposition home or self-care (01) ==
PROVIDERS: PCP Nurse Practitioner Family; Visit Provider Nurse Practitioner Family
DX: Z45.1 Encounter for adjustment and management of infusion pump (principal); M51.16 Intervertebral disc disorders with radiculopathy, lumbar region; Z79.899 Other long term (current) drug therapy
CPT/HCPCS: 99212; G0463

== ENCOUNTER 2024-12-08 15:31 | Outpatient (CLI) | payer OTHER, SELFPAY ==
--- OUTSIDE RECORDS SUMMARY | 2024-12-08 15:34 | XMS_ITS | Clinical Summary ---
Author Organization [facility] Address [address] [place] [address] Care Team Providers Care Landscape Artist Name Role Phone Unavailable Primary Care Provider [...] Plan of Treatment Not on file Insurance [employer] Advance Directives Documents on File Type Date Recorded Patient Packing And Final Assembly Supervisor Expl anation ACP-Advance Directive 03/05/2016 1:21 PM
--- NOTE | 2024-12-08 16:00 | MM_ITS ---
PROCEDURE INFORMATION: Exam: MG Bilateral Screening 3D Mammography Exam date and time: 12/08/2024 3:32 PM Age: 48 years old Clinical indication: Screening examination. TECHNIQUE: Imaging protocol: Bilateral Screening tomosynthesis and 2D mammography including computer-aided detection (CAD) when performed. COMPARISON: 1. MG MM DIG SCREENING MAMM BI W/CAD 11/27/2023 8:25 AM 2. MG MM DIG SCREENING MAMM BI W/CAD 04/09/2022 10:31 AM FINDINGS: MAMMOGRAPHY: Breast composition: There are scattered areas of fibroglandular density. Mass: None. Architectural distortion: None. Calcifications: No suspicious calcifications. Asymmetric density: None. Skin thickening: None. Axillary adenopathy: None. IMPRESSION: No mammographic evidence of malignancy. Annual screening is recommended unless otherwise clinically indicated. ASSESSMENT: BI-RADS Category 1: Negative.
== END 2024-12-08 23:59 | disposition home or self-care (01) ==
LOC: RAD 15:32
PROVIDERS: PCP Nurse Practitioner Family; Visit Provider Nurse Practitioner Family
DX: Z12.31 Encounter for screening mammogram for malignant neoplasm of breast (principal); Z00.00 Encounter for general adult medical examination without abnormal findings; R92.323 Mammographic fibroglandular density, bilateral breasts; F17.210 Nicotine dependence, cigarettes, uncomplicated; E53.8 Deficiency of other specified B group vitamins; E55.9 Vitamin D deficiency, unspecified; I10 Essential (primary) hypertension; F41.9 Anxiety disorder, unspecified; F32.A Depression, unspecified; E78.1 Pure hyperglyceridemia; R09.02 Hypoxemia; Z13.1 Encounter for screening for diabetes mellitus; Z68.38 Body mass index [BMI] 38.0-38.9, adult
CPT/HCPCS: 77063; 77067

== ENCOUNTER 2025-01-03 13:58 | Outpatient (CLI) | payer OTHER, SELFPAY ==
--- OUTSIDE RECORDS SUMMARY | 2025-01-03 14:01 | XMS_ITS | Referral Summary ---
Author Organization [facility] Address [address] [place] [address] Phone Care Team Providers Care Marketing Development Representative Name Role Phone Pcp, None MD Primary Care Provider [phone] Allergies No known active allergies Medications chlorhexidine [...] buPROPion HCl ER (WELLBUTRIN XL) 300 MG DB10Tnqtyifyeet:M ajor depressive disorder, recurrent, moderate (HCC) Take 1 tablet by mouth daily. 90 tablet 1 0 Active nicotine (NICODERM CQ) 21 MG/24HR FP58Jrfntccbpzd:T obacco use disorder 1 patch by Transdermal [...] Name Priority Date/Time Associated Diagnosis Comments CYTOLOGY 1ST GRADE TEACHER Today 01/12/2016 1:46 PM EDT Well woman exam from Last 3 Months or Most Recently Relevant to Health Maintenance Results * CYTOLOGY 1ST GRADE TEACHER (01/12/2016 1:46 PM EDT) CYTOLOGY-1ST GRADE TEACHER CYTOLOGY GYNECOLOGICAL REPORT Name: [facility] COLLAZO [facility]#: [id number] Case #: [id number] Procedure\Addenda HPV High Risk Date Ordered: 01/19/2016 [...] processor post-processed specimens was verified by the [facility] Clinical Microbiology Laboratory. HPV testing performed at [facility], [address] [place] [address]. Final Cytologic Diagnosis A. Thinprep Cervical/Endocervic al with HPV screen and 16/18 Genotyping if Indicated: Adequacy: Satisfactory for evaluation, endocervical transformation zone component present. Interpretation: Negative for intraepithelial lesion or malignancy. This specimen has been analyzed by the KnoPrep Imaging System ([employer] an automated imaging and review system, which assists the transmitter operator and/or pathologist in evaluation of cells on Thinprep Pap tests. Reviewed byKimberly Sheffield CT(ASCP) Source of Specimen(s) A: Thinprep Cervical/Endocervic al with HPV screen and 16/18 Genotyping if Indicated Clinical History Menstrual History: Not stated Signed out at [facility], [address] [place] [address] [facility] Non-Formatted Report [facility] 01/12/2016 1:46 PM EDT 01/15/2016 9:34 AM EDT Comment:THINPREP CERVICAL/EN DOCERVICAL WITH HPV SCREEN AND 16/18 GENOTYPING IF INDICATED us Driss Tejada MD PATHOLOGY/CYTOLOGY ORDERABLES Final Result [facility] [address] [place] [phone] from Last 3 Months or Most Recently Relevant to Health Maintenance Care Teams Marketing Development Representative Relationship Specialty Start Date End Date Pcp, None, PCP - General Internal Medicine 02/18/23
--- OUTSIDE RECORDS SUMMARY | 2025-01-03 14:01 | XMS_ITS | Clinical Summary ---
Author Organization [facility] Address [address] [place] [address], [address] [place] [address] Care Team Providers Care Animal Keeper Head Name Role Phone Unavailable Primary Care Provider [...] Plan of Treatment Not on file Insurance [facility] Advance Directives Documents on File Type Date Recorded Patient Chief Business Officer Expl anation ACP-Advance Directive 03/05/2016 1:21 PM
--- OUTSIDE RECORDS SUMMARY | 2025-01-03 14:01 | XMS_ITS | Clinical Summary ---
Author Organization [facility] Address [address] [place] [address] Phone Care Team Providers Care De Icer Installer Name Role Phone Pcp, None MD Primary Care Provider [phone] Allergies No known active allergies Medications chlorhexidine [...] buPROPion HCl ER (WELLBUTRIN XL) 300 MG DI06Acoqvqwepxi:M ajor depressive disorder, recurrent, moderate (HCC) Take 1 tablet by mouth daily. 90 tablet 1 0 Active nicotine (NICODERM CQ) 21 MG/24HR RW45Ytgmxprcasw:T obacco use disorder 1 patch by Transdermal [...] 01/12/2016, 09/14, 07/12/2009 Colonoscopy 12/10/2020 Influenza Vaccine (#1) 2025 05/12/2017 DTap,Tdap,and Td (7 - Td [...] Name Priority Date/Time Associated Diagnosis Comments CYTOLOGY PAPER CUTTER OPERATOR Today 01/12/2016 1:46 PM EDT Well woman exam from Last 3 Months or Most Recently Relevant to Health Maintenance Results * CYTOLOGY PAPER CUTTER OPERATOR (01/12/2016 1:46 PM EDT) CYTOLOGY-PAPER CUTTER OPERATOR CYTOLOGY GYNECOLOGICAL REPORT Name: [facility] COLLAZO [facility]#: [id number] Case #: [id number] Procedure\Addenda HPV High Risk Date Ordered: 01/19/2016 [...] processor post-processed specimens was verified by the [facility] Microbiology Laboratory. HPV testing performed at [facility], [address] [place] [address]. Final Cytologic Diagnosis A. Thinprep Cervical/Endocervic al with HPV screen and 16/18 Genotyping if Indicated: Adequacy: Satisfactory for evaluation, endocervical transformation zone component present. Interpretation: Negative for intraepithelial lesion or malignancy. This specimen has been analyzed by the ThinPrep Imaging System ([employer] an automated imaging and review system, which assists the boarding room fixer and/or pathologist in evaluation of cells on Thinprep Pap tests. Reviewed byKimberly TREVIÑO(ASCP) Source of Specimen(s) A: Thinprep Cervical/Endocervic al with HPV screen and 16/18 Genotyping if Indicated Clinical History Menstrual History: Not stated Signed out at [facility], [address] [place], [place] [id number] [facility] Non-Formatted Report [facility] 01/12/2016 1:46 PM EDT 01/15/2016 9:34 AM EDT Comment:THINPREP CERVICAL/EN DOCERVICAL WITH HPV SCREEN AND 16/18 GENOTYPING IF INDICATED Driss Tejada MD PATHOLOGY/CYTOLOGY ORDERABLES Final Result [facility] [address] [phone] from Last 3 Months or Most Recently Relevant to Health Maintenance Care Teams De Icer Installer Relationship Specialty Start Date End Date Pcp, Roverto, PCP - General Internal Medicine 02/18/23
[2025-01-06 21:09] LABS: I006-IgE Cockroach, German <0.10 kU/L (Class 0); T006-IgE Cedar, Mountain <0.10 kU/L (Class 0); T007-IgE Oak, White <0.10 kU/L (Class 0); T008-IgE Elm, American <0.10 kU/L (Class 0); T015-IgE Ash, White <0.10 kU/L (Class 0); T022-IgE Pecan, Hickory <0.10 kU/L (Class 0); W001-IgE Ragweed, Short <0.10 kU/L (Class 0); W011-IgE Thistle, Russian <0.10 kU/L (Class 0); W014-IgE Pigweed, Common <0.10 kU/L (Class 0)
== END 2025-01-03 23:59 | disposition home or self-care (01) ==
LOC: LAB 13:58
PROVIDERS: PCP Nurse Practitioner Family; Visit Provider Internal Medicine Pulmonary Disease
DX: J44.9 Chronic obstructive pulmonary disease, unspecified (principal); J30.9 Allergic rhinitis, unspecified
CPT/HCPCS: 36415; 82103; 82785; 86003

== ENCOUNTER 2025-02-10 09:05 | Outpatient (CLI) | payer OTHER, SELFPAY ==
[2025-02-10 14:49] LABS: Coronavirus 19, PCR Not Detected (NotDetected); Influenza A, PCR Not Detected (NotDetected); Influenza B, PCR Not Detected (NotDetected)
--- OUTSIDE RECORDS SUMMARY | 2025-02-11 12:37 | XMS_ITS | Clinical Summary ---
Author Organization [facility] Address [address] [place] [address] Phone Care Team Providers Care Reel Film Inspector Name Role Phone Pcp, None MD Primary Care Provider [phone] Allergies No known active allergies Medications chlorhexidine [...] buPROPion HCl ER (WELLBUTRIN XL) 300 MG GF86Mfrfonzzsdj:M ajor depressive disorder, recurrent, moderate (HCC) Take 1 tablet by mouth daily. 90 tablet 1 0 Active nicotine (NICODERM CQ) 21 MG/24HR SG04Oaplglslcbt:T obacco use disorder 1 patch by Transdermal [...] Name Priority Date/Time Associated Diagnosis Comments CYTOLOGY TUBE ROOM CASHIER Today 01/12/2016 1:46 PM EDT Well woman exam from Last 3 Months or Most Recently Relevant to Health Maintenance Results * CYTOLOGY TUBE ROOM CASHIER (01/12/2016 1:46 PM EDT) CYTOLOGY-TUBE ROOM CASHIER CYTOLOGY GYNECOLOGICAL REPORT Name: [facility] COLLAZO [facility]#: [id number] Case #: [id number] Procedure\Addenda HPV High Risk Date Ordered: 01/19/2016 [...] processor post-processed specimens was verified by the [facility] Microbiology Laboratory. HPV testing performed at [facility], [address] [place] [address]. Final Cytologic Diagnosis A. Thinprep Cervical/Endocervic al with HPV screen and 16/18 Genotyping if Indicated: Adequacy: Satisfactory for evaluation, endocervical transformation zone component present. Interpretation: Negative for intraepithelial lesion or malignancy. This specimen has been analyzed by the ThinPrep Imaging System ([employer] an automated imaging and review system, which assists the nurse private duty and/or pathologist in evaluation of cells on Thinprep Pap tests. Reviewed byKimberly TREVIÑO(ASCP) Source of Specimen(s) A: Thinprep Cervical/Endocervic al with HPV screen and 16/18 Genotyping if Indicated Clinical History Menstrual History: Not stated Signed out at [facility], [address] [place], [place] [id number] [facility] Non-Formatted Report [facility] 01/12/2016 1:46 PM EDT 01/15/2016 9:34 AM EDT Comment:THINPREP CERVICAL/EN DOCERVICAL WITH HPV SCREEN AND 16/18 GENOTYPING IF INDICATED Driss Tejada MD PATHOLOGY/CYTOLOGY ORDERABLES Final Result [facility] [address] [id number] from Last 3 Months or Most Recently Relevant to Health Maintenance Care Teams Reel Film Inspector Relationship Specialty Start Date End Date Pcp, Roverto, PCP - General Internal Medicine 02/18/23
--- OUTSIDE RECORDS SUMMARY | 2025-02-11 12:37 | XMS_ITS | Referral Summary ---
Author Organization [facility] Address [address] [place] [address] Phone Care Team Providers Care Insect Control Aide Name Role Phone Pcp, None MD Primary [...] buPROPion HCl ER (WELLBUTRIN XL) 300 MG MW24Virlclnhkjb:M ajor depressive disorder, recurrent, moderate (HCC) Take 1 tablet by mouth daily. 90 tablet 1 0 Active nicotine (NICODERM CQ) 21 MG/24HR ZJ27Lvjkamchhjn:T obacco use disorder 1 patch by Transdermal [...] Name Priority Date/Time Associated Diagnosis Comments CYTOLOGY CAMPUS RECRUITER Today 01/12/2016 1:46 PM EDT Well woman exam from Last 3 Months or Most Recently Relevant to Health Maintenance Results * CYTOLOGY CAMPUS RECRUITER (01/12/2016 1:46 PM EDT) CYTOLOGY-CAMPUS RECRUITER CYTOLOGY GYNECOLOGICAL REPORT Name: [facility]#: [id number] Case #: [id number] Procedure\Addenda HPV High Risk Date Ordered: 01/19/2016 [...] processor post-processed specimens was verified by the [facility] Clinical Microbiology [facility]. HPV testing performed at [facility], [address] [place] [address]. Final Cytologic Diagnosis A. Thinprep Cervical/Endocervic al with HPV screen and 16/18 Genotyping if Indicated: Adequacy: Satisfactory for evaluation, endocervical transformation zone component present. Interpretation: Negative for intraepithelial lesion or malignancy. This specimen has been analyzed by the AlaMarkaPrep Imaging System ([employer] an automated imaging and review system, which assists the sonar subsystem equipment operator and/or pathologist in evaluation of cells on Thinprep Pap tests. Reviewed byKimberly Sheffield CT(ASCP) Source of Specimen(s) A: Thinprep Cervical/Endocervic al with HPV screen and 16/18 Genotyping if Indicated Clinical History Menstrual History: Not stated Signed out at [facility], [address] [place] [address] [facility] Non-Formatted Report [facility] 01/12/2016 1:46 PM EDT 01/15/2016 9:34 AM EDT Comment:THINPREP CERVICAL/EN DOCERVICAL WITH HPV SCREEN AND 16/18 GENOTYPING IF INDICATED us Driss Tejada MD PATHOLOGY/CYTOLOGY ORDERABLES Final Result [facility] [address] [place] [phone] from Last 3 Months or Most Recently Relevant to Health Maintenance Care Teams Insect Control Aide Relationship Specialty Start Date End Date Pcp, None, PCP - General Internal Medicine 02/18/23
--- OUTSIDE RECORDS SUMMARY | 2025-02-11 12:37 | XMS_ITS | Clinical Summary ---
Author Organization [facility] Address [address] [place] [address], [address] [place] [address] Care Team Providers Care Military Science Instructor Name Role Phone Unavailable Primary Care Provider [...] Plan of Treatment Not on file Insurance [facility] Advance Directives Documents on File Type Date Recorded Patient Government Teacher Expl anation ACP-Advance Directive 03/05/2016 1:21 PM
== END 2025-02-10 23:59 | disposition home or self-care (01) ==
LOC: LAB.DROPOF 02-11 12:36
PROVIDERS: PCP Nurse Practitioner Family; Visit Provider Nurse Practitioner Family
DX: J98.8 Other specified respiratory disorders (principal); B97.89 Other viral agents as the cause of diseases classified elsewhere; R53.83 Other fatigue; R60.0 Localized edema; R09.02 Hypoxemia; R49.0 Dysphonia; M79.605 Pain in left leg; M79.604 Pain in right leg; Z99.81 Dependence on supplemental oxygen; F17.210 Nicotine dependence, cigarettes, uncomplicated
CPT/HCPCS: 87631

== ENCOUNTER 2025-02-16 09:55 | Outpatient (CLI) | payer OTHER, SELFPAY ==
[2025-02-16 14:25] LABS: Chloride 103 mmol/L (98-107); Potassium 3.8 mmoL/L (3.5-5.1); Sodium 140 mmol/L (136-145)
[2025-02-16 14:28] LABS: Anion Gap 9.8 mEq/L (5-15); Blood Urea Nitrogen 10 mg/dl (7-17); Calcium 9.4 mg/dl (8.4-10.2); Carbon Dioxide 31 mmol/L (22.0-30.0); Creatinine,Serum 0.60 mg/dl (0.52-1.04); Estimated Glomerular Filt Rate 106 ml/min (>60); GFR (African American) 129 ML/MIN (>60); Glucose 79 mg/dl (74-100)
--- OUTSIDE RECORDS SUMMARY | 2025-02-18 09:34 | XMS_ITS | Clinical Summary ---
Author Organization [facility] Address [address] [place] [address] Phone Care Team Providers Care Outboard Motor Tester Name Role Phone Pcp, None MD Primary Care Provider [phone] Allergies No known active allergies Medications chlorhexidine [...] buPROPion HCl ER (WELLBUTRIN XL) 300 MG [id number]:M ajor depressive disorder, recurrent, moderate (HCC) Take 1 tablet by mouth daily. 90 tablet 1 0 Active nicotine (NICODERM CQ) 21 MG/24HR [id number]:T obacco use disorder 1 patch by Transdermal [...] Name Priority Date/Time Associated Diagnosis Comments CYTOLOGY SCREEN PRINTING MACHINE LOADER UNLOADER Today 01/12/2016 1:46 PM EDT Well woman exam from Last 3 Months or Most Recently Relevant to Health Maintenance Results * CYTOLOGY SCREEN PRINTING MACHINE LOADER UNLOADER (01/12/2016 1:46 PM EDT) CYTOLOGY-SCREEN PRINTING MACHINE LOADER UNLOADER CYTOLOGY GYNECOLOGICAL REPORT Name: [facility]#: [id number] Case #: [id number] Procedure\Addenda HPV High Risk Date Ordered: 01/19/2016 [...] processor post-processed specimens was verified by the [facility]. HPV testing performed at [facility], [address] [place] [address]. Final Cytologic Diagnosis A. Thinprep Cervical/Endocervic al with HPV screen and 16/18 Genotyping if Indicated: Adequacy: Satisfactory for evaluation, endocervical transformation zone component present. Interpretation: Negative for intraepithelial lesion or malignancy. This specimen has been analyzed by the ThinPrep Imaging System ([employer] an automated imaging and review system, which assists the maintenance pipefitter and/or pathologist in evaluation of cells on Thinprep Pap tests. Reviewed byKimberly TREVIÑO(ASCP) Source of Specimen(s) A: Thinprep Cervical/Endocervic al with HPV screen and 16/18 Genotyping if Indicated Clinical History Menstrual History: Not stated Signed out at [facility], [address] [place], [place] [id number] [facility] Non-Formatted Report [facility] 01/12/2016 1:46 PM EDT 01/15/2016 9:34 AM EDT Comment:THINPREP CERVICAL/EN DOCERVICAL WITH HPV SCREEN AND 16/18 GENOTYPING IF INDICATED Driss Tejada MD PATHOLOGY/CYTOLOGY ORDERABLES Final Result [facility] [address] [id number] from Last 3 Months or Most Recently Relevant to Health Maintenance Care Teams Outboard Motor Tester Relationship Specialty Start Date End Date Pcp, Roverto, PCP - General Internal Medicine 02/18/23
--- OUTSIDE RECORDS SUMMARY | 2025-02-18 09:34 | XMS_ITS | Clinical Summary ---
Author Organization [facility] Address [address] [place] [address], [address] [place] [address] Care Team Providers Care Footwear Stitcher Name Role Phone Unavailable Primary Care Provider [...] Plan of Treatment Not on file Insurance [facility] Advance Directives Documents on File Type Date Recorded Patient Machine Wood Sander Expl anation ACP-Advance Directive 03/05/2016 1:21 PM
--- OUTSIDE RECORDS SUMMARY | 2025-02-18 09:34 | XMS_ITS | Referral Summary ---
Author Organization [facility] Address [address] 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 HPV testing performed at [facility], [address] [place] [id number]. Final Cytologic Diagnosis A. Thinprep Cervical/Endocervic al with HPV screen and 16/18 Genotyping if Indicated: Adequacy: Satisfactory for evaluation, endocervical transformation zone component present. Interpretation: Negative for intraepithelial lesion or malignancy. This specimen has been analyzed by the SilverPushPrep Imaging System ([employer] an automated imaging and review system, which assists the band instrument repairer and/or pathologist in evaluation of cells on Thinprep Pap tests. Reviewed byKimberly Sheffield CT(ASCP) Source of Specimen(s) A: Thinprep Cervical/Endocervic al with HPV screen and 16/18 Genotyping if Indicated Clinical History Menstrual History: Not stated Signed out at [facility], [address] [place] [id number] [facility] Non-Formatted Report [facility] 01/12/2016 1:46 PM EDT 01/15/2016 9:34 AM EDT Comment:THINPREP CERVICAL/EN DOCERVICAL WITH HPV SCREEN AND 16/18 GENOTYPING IF INDICATED us Driss Tejada MD PATHOLOGY/CYTOLOGY ORDERABLES Final Result [facility] [address] [place] [phone] from Last 3 Months or Most Recently Relevant to Health Maintenance Care Teams Crane Mechanic Relationship Specialty Start Date End Date Pcp, None, PCP - General Internal Medicine 02/18/23
== END 2025-02-16 23:59 ==
LOC: LAB.DROPOF 02-18 09:28
PROVIDERS: PCP Nurse Practitioner Family; Visit Provider Nurse Practitioner Family
DX: M79.604 Pain in right leg (principal); M79.605 Pain in left leg
CPT/HCPCS: 80048

== ENCOUNTER 2025-04-19 10:07 | Outpatient (CLI) | payer OTHER, SELFPAY ==
--- NOTE | 2025-04-19 10:00 | CT_ITS ---
FINAL REPORT TECHNIQUE: Noncontrast CT images with high-resolution images were obtained. Thin section axial images were obtained from the lung apices through the upper abdomen without contrast. This study was performed with techniques to keep radiation doses as low as reasonably achievable (ALARA). Individualized dose reduction techniques using automated exposure control or adjustment of mA and/or kV according to the patient's size were employed. CLINICAL HISTORY: pul nodule COMPARISON: February 29, 2024. FINDINGS: The thoracic inlet is unremarkable. There is artifact from spinal fusion hardware. There is S-shaped curvature of the spine. The thyroid is homogeneous. The aortic contours are normal. There is evidence of prior granulomatous disease. There is no lymphadenopathy. There is no pericardial or pleural effusion. Limited imaging of the upper abdomen reveals a small hiatal hernia. There is no suspicious pulmonary nodule. There is no acute infiltrate or edema. There is diffuse mild bronchial thickening. There is no septal thickening. There is no air trapping. There is no evidence of fibrosis. IMPRESSION: No acute intrathoracic abnormality. Reviewed, Interpreted and Dictated by Matteo Reyes MD Transcribed by SYLVAIN Bailey Authenticated and . [facility]
== END 2025-04-19 23:59 | disposition home or self-care (01) ==
LOC: RAD 10:08
PROVIDERS: PCP Nurse Practitioner Family; Visit Provider Internal Medicine Pulmonary Disease
DX: R91.1 Solitary pulmonary nodule (principal)
CPT/HCPCS: 71250